=== PATIENT | female | born 1980 | race Hispanic/Latino ===

== ENCOUNTER 2016-08-23 17:32 | Observation (INO) | payer MEDICAID, OTHER ==
[2016-08-23 17:40] VITALS: BMI 25.6
[2016-08-23] MEDS ORDERED: Sodium Chloride 0.9% 1,000 ML IV STA (18:15)
[2016-08-23 19:19] LABS: ADD MANUAL DIFF? NO
[2016-08-23] MEDS ORDERED: Morphine 4 mg/ml ISec IVP STA ×2 (19:36→22:37)
[2016-08-23 19:44] LABS: ALB/GLOB RATIO 1.2 (1.1-1.8); ALKALINE PHOSPHATASE 91 U/L (38-133); ALT/SGPT 38 U/L (7-56); AMYLASE 38 U/L (35-125); AST/SGOT 35 U/L (15-39); BILIRUBIN,TOTAL 0.4 mg/dL (0.2-1.3); BLOOD UREA NITROGEN 12 mg/dL (7-21); CALCIUM 9.6 mg/dL (8.4-10.5); CARBON DIOXIDE 24 mmol/L (21-33); CHLORIDE 105 mmol/L (98-107); GFR AFRICAN-AMERICAN > 60; GLUCOSE,RANDOM 79 mg/dL (70-110); LIPASE 30 U/L (23-300); POTASSIUM 4.1 mmol/L (3.6-5.0); SODIUM 141 mmol/L (132-148); TOTAL PROTEIN 7.8 g/dL (5.8-8.3)
[2016-08-23 19:49] LABS: BASO # 0.03 K/mm3 (0.0-2.0); BASO % 0.3 % (0.0-3.0); EOS # 0.2 (0.0-0.7); EOS % 2.2 % (1.5-5.0); GRAN # 6.78 (1.4-6.5); GRAN % 64.9 % (50.0-68.0); HEMATOCRIT 37.5 % (36.0-48.0); LYMPH # 2.6 (1.2-3.4); LYMPH % 24.8 % (22.0-35.0); MEAN CELL VOLUME 95.7 fL (80.0-105.0); MEAN CORPUSCULAR HEMOGLOBIN 33.2 pg (25.0-35.0); MEAN CORPUSCULAR HGB CONC 34.7 g/dl (31.0-37.0); MEAN PLATELET VOLUME 11.7 fl (7.0-11.0); MONO # 0.8 (0.1-0.6); MONO % 7.8 % (1.0-6.0); PLATELET COUNT 274 10^3/uL (120.0-450.0); RED CELL DISTRIBUTION WIDTH 12.6 % (11.5-14.5); WHITE BLOOD COUNT 10.4 10^3/ul (4.5-11.0)
[2016-08-23] MEDS ORDERED: Iohexol 350 MG/100 ML VIAL ONE (19:58)
--- NOTE | 2016-08-23 21:10 | CT ---
EXAM: CT Abdomen and Pelvis With Intravenous Contrast CLINICAL HISTORY: 36 years old, female; Pain and signs and symptoms; Nausea and vomiting; Abdominal pain; Acute; Prior surgery; Surgery date: 6+ months; Surgery type: Cholecystectomy, hysterectomy and appendectomy TECHNIQUE: Axial computed tomography images of the abdomen and pelvis with intravenous contrast. This CT exam was performed using one or more of the following dose reduction techniques: automated exposure control, adjustment of the mA and/or kV according to patient size, and/or use of iterative reconstruction technique. Coronal and sagittal reformatted images were created and reviewed. CONTRAST: 100 mL of OMNI administered intravenously. EXAM DATE/TIME: 08/23/2016 7:35 PM COMPARISON: CT - ABD PELVIS W/O PO OR IV CONT 06/30/2016 9:49:16 PM FINDINGS: Lower thorax: Heart size is normal. There is a small hiatal hernia. There is atelectasis at the lung bases. There is scarring greatest in the in the lingula and middle lobe. ABDOMEN: Liver: There is mild fatty infiltration of the liver. Gallbladder and bile ducts: Gallbladder is surgically absent. Common bile duct is dilated. Pancreas: unremarkable Spleen: unremarkable Adrenals: unremarkable Kidneys and ureters: There is a tiny low attenuation left renal lesion too small to characterize.Kidneys and ureters are otherwise unremarkable. Stomach and bowel: Stomach is partially distended. Rotation is normal. Small bowel is mildly distended with fluid and air. There is no obstruction. Terminal ileum is mildly distended with fluid. Appendix is surgically absent. There is moderate stool in the right colon. Left colon is collapsed which limits evaluation. There is scattered diverticulosis Appendix: See stomach and bowel PELVIS: Bladder: unremarkable Reproductive: Uterus is absent. There are no adnexal masses. ABDOMEN and PELVIS: Intraperitoneal space: There is no significant fluid.There is no free air. Bones/joints: There are no acute osseous abnormalities Soft tissues: There is a small fat containing umbilical hernia. Vasculature: There are multiple phleboliths. Vascular structures are unremarkable. Lymph nodes: There is shotty adenopathy. IMPRESSION: No acute solid visceral abnormality; dilated common duct status post cholecystectomy; prior hysterectomy; mild ileus, no obstruction; diverticulosis without CT findings diverticulitis Additional findings as described above.
[2016-08-23 22:28] LABS: PH,URINE 7.5 (4.7-8.0); URINE BILIRUBIN NEGATIVE (NEGATIVE); URINE BLOOD NEGATIVE (NEGATIVE); URINE GLUCOSE (UA) NEGATIVE (NEGATIVE); URINE KETONE NEGATIVE (NEGATIVE); URINE LEUKOCYTE ESTERASE NEGATIVE Leu/uL (NEGATIVE); URINE PROTEIN NEGATIVE mg/dL (<30 mg/dL); URINE UROBILINOGEN 0.2 E.U./dL (<1 E.U./dL)
[2016-08-23 22:29] LABS: URINE APPEARANCE CLEAR (CLEAR); URINE COLOR YELLOW (YELLOW)
--- NOTE | 2016-08-23 23:00 | ED PDOC ---
Arrival/HPI - General Chief Complaint: Abdominal Pain Time Seen by Provider: 08/23/16 17:42 Historian: Patient - History of Present Illness Narrative History of Present Illness (Text): 08/23/16 22:56 36yr old female presents today to with abdominal pain, diarrhea x 3-4 days. pt states she has been having increasing abdominal pain, described as sharp constant located to the right and left lower abdomen. denies fever/chills. no cp or sob. no vomiting. + diarrhea. pt describes watery frequent diarrhea. pt states "i am peeing stool". no urinary symptoms. denies back pain. hx of c- diff. no other complaints. Symptom Onset: Gradual Symptom Course: Worsening Quality: Stabbing Severity Level: 8 Past Medical History - Provider Review Nursing Documentation Reviewed: Yes - Travel History Have you recently traveled outside [place] w/in the past 3 mons?: No - Past History Past History: No Previous - Infectious Disease Hx of Infectious Diseases: None - Tetanus Immunization Tetanus Immunization: Unknown - Cardiac Hx Cardiac Arrhythmia: No Hx Congestive Heart Failure: No Hx Hypertension: No Hx Mitral Valve Prolapse: No Hx Pacemaker: No Hx Peripheral Edema: No - Pulmonary Hx Asthma: Yes Hx Chronic Obstructive Pulmonary Disease (COPD): Yes - Neurological Hx Migraine: Yes Hx Seizures: Yes - HEENT Hx HEENT Disorder: No - Renal Hx Renal Disorder: No - Endocrine/Metabolic Hx Endocrine Disorders: No - Hematological/Oncological Hx Anemia: Yes (blood transfusion) - Integumentary Hx Dermatological Disorder: Yes Hx Eczema: Yes - Musculoskeletal/Rheumatological Hx Musculoskeletal Disorders: No Hx Falls: No - Gastrointestinal Hx Diverticulitis: Yes Hx Gall Bladder Disease: Yes (CHOLECYSTECTOMY) - Genitourinary/Gynecological Hx Sexually Transmitted Diseases: Yes - Psychiatric Hx Anxiety: Yes Hx Depression: Yes Hx Substance Use: No - Surgical History Hx Appendectomy: Yes Hx Cholecystectomy: Yes Hx Tonsillectomy: Yes - Anesthesia Hx Anesthesia: No Hx Anesthesia Reactions: No Hx Malignant Hyperthermia: No - Suicidal Assessment Feels Threatened In Home Enviroment: No Family/Social History - Physician Review Nursing Documentation Reviewed: Yes Family/Social History: Unknown Family HX Smoking Status: Current Some Days Smoker Hx Alcohol Use: No Hx Substance Use: No Substance used: MARIJUANA Hx Substance Use Treatment: No Allergies/Home Meds Allergies/Adverse Reactions: Allergies ciprofloxacin HCl [From Cipro] Allergy (Mild, Verified 08/23/16 17:46) RASH latex Allergy (Mild, Verified 08/23/16 17:46) RASH Penicillins Allergy (Mild, Verified 08/23/16 17:46) RASH aspirin Allergy (Verified 08/23/16 17:46) RASH aztreonam [From Azactam] Allergy (Verified 08/23/16 17:46) RASH hydromorphone HCl [From Dilaudid] Allergy (Verified 08/23/16 17:46) RASH Sulfa (Sulfonamide Antibiotics) Allergy (Verified 08/23/16 17:46) RASH codeine Adverse Reaction (Verified 08/23/16 17:46) NAUSEA Home Medications: Home Meds Medication Instructions Recorded Confirmed Sertraline HCl [Zoloft] 50 mg PO HS 07/02/15 08/23/16 Cholecalciferol (Vitamin D3) 50,000 units PO .WEEKLY 07/17/15 08/23/16 [Vitamin D3] Divalproex [Depakote ER] 500 mg PO BID 11/12/15 08/23/16 Lamotrigine [Lamictal Xr] 50 mg PO BID 11/12/15 08/23/16 Mirtazapine [Remeron] 30 mg PO HS 11/12/15 08/23/16 Pantoprazole Sodium [Protonix] 20 mg PO DAILY 11/12/15 08/23/16 Loratadine [Claritin] 10 mg PO DAILY 12/19/15 08/23/16 Albuterol Sulfate [Proventil Hfa] 1 puff IH PRN PRN 08/23/16 08/23/16 Butalbital [Butalbital] 50 mg PO BID 08/23/16 08/23/16 Conjugated Estrogens [Premarin] 0.625 mg PO DAILY 08/23/16 08/23/16 Fluticasone/Salmeterol 100/50 1 puff IH DAILY 08/23/16 08/23/16 [Advair Diskus 100/50] Montelukast [Singulair] 10 mg PO DAILY 08/23/16 08/23/16 Omeprazole Magnesium [Prilosec] 20 mg PO BID 08/23/16 08/23/16 clonazePAM [Klonopin] 1 mg PO BID 08/23/16 08/23/16 tiZANidine [Zanaflex] 4 mg PO HS 08/23/16 08/23/16 Review of Systems - Review of Systems Constitutional: absent: Fatigue, Fevers Respiratory: absent: SOB, Cough Cardiovascular: absent: Chest Pain, Palpitations Gastrointestinal: Abdominal Pain, Diarrhea. absent: Constipation, Nausea, Vomiting Genitourinary Female: absent: Dysuria, Frequency, Hematuria, Vaginal Bleeding, Vaginal Discharge Musculoskeletal: absent: Arthralgias, Back Pain, Neck Pain Skin: absent: Rash, Pruritis Neurological: absent: Headache, Dizziness Psychiatric: absent: Anxiety, Depression Physical Exam Vital Signs Reviewed: Yes Vital Signs Temp Pulse Resp BP Pulse Ox 08/23/16 22:23 97.8 F 75 18 102/50 L 100 08/23/16 20:00 83 16 126/80 98 08/23/16 17:39 98.2 F 98 H 18 127/79 98 Temperature: Afebrile Blood Pressure: Normal Pulse: Regular Respiratory Rate: Normal Appearance: Positive for: Well-Appearing, Non-Toxic, Comfortable Pain Distress: None Mental Status: Positive for: Alert and Oriented X 3 - Systems Exam Head: Present: Atraumatic Mouth: Present: Moist Mucous Membranes Neck: Present: Normal Range of Motion Respiratory/Chest: Present: Clear to Auscultation, Good Air Exchange. No: Respiratory Distress, Accessory Muscle Use Cardiovascular: Present: Regular Rate and Rhythm, Normal S1, S2. No: Murmurs Abdomen: Present: Tenderness (diffuse abdominal tenderness), Normal Bowel Sounds. No: Distention, Peritoneal Signs, Rebound, Guarding Back: Present: Normal Inspection. No: CVA Tenderness Neurological: Present: GCS=15 Skin: Present: Warm, Dry, Normal Color. No: Rashes Psychiatric: Present: Alert, Oriented x 3 Medical Decision Making ED Course and Treatment: 08/23/16 23:02 Patient is nontoxic well appearing with stable vital signs presenting with severe abdominal pain CBC wnl CMP wnl Amylase wnl Lipase wnl Urinalysis wnl CAT scan: FINDINGS: Lower thorax: Heart size is normal. There is a small hiatal hernia. There is atelectasis at the lung bases. There is scarring greatest in the in the lingula and middle lobe. ABDOMEN: Liver: There is mild fatty infiltration of the liver. Gallbladder and bile ducts: Gallbladder is surgically absent. Common bile duct is dilated. Pancreas: unremarkable Spleen: unremarkable Adrenals: unremarkable Kidneys and ureters: There is a tiny low attenuation left renal lesion too small to characterize.Kidneys and ureters are otherwise unremarkable. Stomach and bowel: Stomach is partially distended. Rotation is normal. Small bowel is mildly distended with fluid and air. There is no obstruction. Terminal ileum is mildly distended with fluid. Appendix is surgically absent. There is moderate stool in the right colon. Left colon is collapsed which limits evaluation. There is scattered diverticulosis Appendix: See stomach and bowel PELVIS: Bladder: unremarkable Reproductive: Uterus is absent. There are no adnexal masses. ABDOMEN and PELVIS: Intraperitoneal space: There is no significant fluid.There is no free air. Bones/joints: There are no acute osseous abnormalities Soft tissues: There is a small fat containing umbilical hernia. Vasculature: There are multiple phleboliths. Vascular structures are unremarkable. Lymph nodes: There is shotty adenopathy. IMPRESSION: No acute solid visceral abnormality; dilated common duct status post cholecystectomy; prior hysterectomy; mild ileus, no obstruction; diverticulosis without CT findings diverticulitis Additional findings as described above. Patient reassessment:pt with continued pain. morphine added Discussed all results with patient in depth pt with rx from PMD advising admission with surgery consult case discussed with dr. philippe bridges; accepts admission; will send stool cultures. pt with hx of c-diff 07/03/16 Impression: Abdominal pain, diarrhea admit observational status to med/surg for diarrhea and abdominal pain hx of c- diff - Lab Interpretations Lab Results: 08/23/16 19:10 08/23/16 19:10 Lab Results 08/23/16 22:10: Urine Color Yellow, Urine Appearance Clear, Urine pH 7.5, Ur Specific [place] 1.010, Urine Protein Negative, Urine Glucose (UA) Negative, Urine Ketones Negative, Urine Blood Negative, Urine Nitrate Negative, Urine Bilirubin Negative, Urine Urobilinogen 0.2, Ur Leukocyte Esterase Negative 08/23/16 19:10: WBC 10.4 D, RBC 3.92, Hgb 13.0, Hct 37.5, MCV 95.7, MCH 33.2, MCHC 34.7, RDW 12.6, Plt Count 274, MPV 11.7 H, Gran % 64.9, Lymph % (Auto) 24.8 , [place] % (Auto) 7.8 H, Eos % (Auto) 2.2, Baso % (Auto) 0.3, Gran # 6.78 H, Lymph # 2.6, [place] # 0.8 H, Eos # 0.2, Baso # 0.03 08/23/16 19:10: Sodium 141, Potassium 4.1, Chloride 105, Carbon Dioxide 24, Anion Gap 16, BUN 12, Creatinine 0.7, Est GFR ( Amer) > 60, Est GFR (Non- Af Amer) > 60, Random Glucose 79, Calcium 9.6, Total Bilirubin 0.4, AST 35, ALT 38, Alkaline Phosphatase 91, Total Protein 7.8, Albumin 4.2, Globulin 3.6, Albumin/Globulin Ratio 1.2, Amylase 38, Lipase 30 - RAD Interpretation Radiology Orders: 08/23/16 19:35 ABD & PELVIS IV CONTRAST ONLY [CT] Stat - Medication Orders Current Medication Orders: Albuterol (Ventolin Hfa 90 Mcg/Actuation (8 G)) 1 puff IH Q4H PRN PRN Reason: Wheezing Clonazepam (Klonopin) 1 mg PO BID KADY PRN Reason: Protocol Divalproex Sodium (Depakote Er(Once Daily)) 500 mg PO BID KADY PRN Reason: Protocol Enoxaparin Sodium (Lovenox) 40 mg SC DAILY KADY PRN Reason: Protocol Estrogens Conjugated (Premarin) 0.625 mg PO DAILY KADY Metronidazole (Flagyl) 500 mg in 100 mls @ 100 mls/hr IVPB Q8 KADY PRN Reason: Protocol Sodium Chloride (Sodium Chloride 0.9%) 1,000 mls @ 100 mls/hr IV .Q10H KADY Ketorolac Tromethamine (Toradol) 30 mg IVP Q6 PRN PRN Reason: Pain, moderate (4-7) Loratadine (Claritin) 10 mg PO DAILY KADY Lorazepam (Ativan) 1 mg IVP Q6H PRN; Protocol PRN Reason: Anxiety Mirtazapine (Remeron) 30 mg PO HS KADY Montelukast Sodium (Singulair) 10 mg PO DAILY KADY Non-Formulary Medication (Butalbital [Butalbital]) 50 mg PO BID KADY Non-Formulary Medication (Cholecalciferol (Vitamin D3) [Vitamin D3]) 50,000 units PO .WEEKLY KADY Non-Formulary Medication (Lamotrigine [Lamictal Xr]) 50 mg PO BID KADY Ondansetron HCl (Zofran Tab) 4 mg PO Q8H PRN PRN Reason: Nausea/Vomiting Ondansetron HCl (Zofran Inj) 4 mg IVP Q6 PRN PRN Reason: Nausea/Vomiting Pantoprazole Sodium (Protonix Ec Tab) 40 mg PO ACB KADY Fluticasone/Salmeterol (Advair Diskus 100/50) 1 puff IH DAILY KADY Sertraline HCl (Zoloft) 50 mg PO HS KADY Tizanidine HCl (Zanaflex) 4 mg PO HS KADY Discontinued Medications Diphenhydramine HCl (Benadryl) 25 mg PO ONCE ONE Stop: 08/23/16 19:37 Last Admin: 08/23/16 19:48 Dose: 25 mg Diphenhydramine HCl (Benadryl) 25 mg PO ONCE ONE Stop: 08/23/16 22:38 Last Admin: 08/23/16 22:49 Dose: 25 mg Sodium Chloride (Sodium Chloride 0.9%) 1,000 mls @ 999 mls/hr IV .Q1H1M STA Stop: 08/23/16 19:15 Last Admin: 08/23/16 19:15 Dose: 999 mls/hr Iohexol (Omnipaque 350 100 Ml) Confirm Administered Dose 350 mg .ROUTE .STK-MED ONE Stop: 08/23/16 19:59 Morphine Sulfate (Morphine) 4 mg IVP STAT STA Stop: 08/23/16 19:37 Last Admin: 08/23/16 19:48 Dose: 4 mg Re-Assess: CHIP Pain Assessment Document 08/23/16 20:48 HI (Rec: 08/23/16 22:50 AR [id number]) Pain Reassessment Is this a pain reassessment? Yes Sleep Is patient sleeping during reassessment? No Presence of Pain Presence of Pain Yes Pain Scale Used Pain Scale Used Numeric Location Pain Location Body Site Abdomen Morphine Sulfate (Morphine) 4 mg IVP STAT STA Stop: 08/23/16 22:38 Last Admin: 08/23/16 22:49 Dose: 4 mg Disposition/Present on Arrival - Present on Arrival Any Indicators Present on Arrival: No History of DVT/PE: No History of Uncontrolled Diabetes: No Urinary Catheter: No History of Decub. Ulcer: No History Surgical Site Infection Following: None - Disposition Have Diagnosis and Disposition been Completed?: Yes Diagnosis: Abdominal pain, Diarrhea Disposition: HOSPITALIZED Disposition Time: 23:05 Patient Plan: Observation Patient Problems: Current Active Problems Problem Status Onset Abdominal pain Acute Diarrhea Acute Condition: FAIR
[2016-08-23] MEDS ORDERED: LAMOTRIGINE 50 MG PO SCH (23:45)
--- NOTE | 2016-08-24 00:30 | CP.PCM.HP ---
<Zeynep Peguero - Last Filed: 08/24/16 01:47> History of Present Illness - History of Present Illness History of Present Illness: Internal medicine H & P for Hospitalist service- Zeynepdillon Peguero, PGY-1 Pt S & E at bedside. 36 F w/PMH sig for IBS, diverticulosis, seizure d/o, anemia, asthma, COPD, PTSD , bipolar d/o, hemorrhoids, GERD, recent c diff infection, chronic migraines, depression and anxiety admitted for intractable abdominal pain x 3 days. 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 Pain onset during the middle of the night, on inciting factors identified. Pt states she woke up and felt the urge to defecate, had some fecal incontinence prior to making it to the bathroom. Pt states that she is on a pain regimen of Morphine 4mg w/Benadryl 25mg at home, which helps alleviate the pain. Eating & drinking identified as aggravating factors. Has been on pain regimen for a few weeks as per PMD. Pt seen by PMD on day of admission - started Flagyl 500mg BID. 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 Denies sexual contact x 2-3 mos, fevers, rhinorrhea, sinus congestion , constipation. Pt with repeated requests for pain medications at bedside- requesting Benadryl IVP instead of PO - states that she is not allergic to morphine, does not get hives or have pruritis after administration of morphine, however is given Benadryl and Morphine together as per her PMD and would like to continue this regimen. Of note- father recently dx with terminal CA- given wks to live- pt very upset by this PMD: IBS, diverticulosis, seizure d/o, anemia, asthma, COPD, PTSD, bipolar d/o, hemorrhoids, GERD, recent c diff infection, depression and anxiety, chronic migraines PSH: appendectomy, cholecystectomy, total hysterectomy All: Cipro, PCN, Latext, ASA, Aztreonam, Dilaudid, Sulfa SH: Admits to tobacco use- smokes 1/2 ppd x 6 mos, decreased from 1 ppd x 20 yrs , denies ETOH use, quit MJ use 2 wks ago FH: Father recently dx with stage 4 CA- very upsetting to family- given a few wks to live PMD: [facility] A [facility] Outpatient neuro: Abby Present on Admission - Present on Admission Any Indicators Present on Admission: No History of DVT/PE: No History of Uncontrolled Diabetes: No Urinary Catheter: No Decubitus Ulcer Present: No Review of Systems - Review of Systems All systems: reviewed and no additional remarkable complaints except - Constitutional Constitutional: Chills, Headache, Lethargy, Malaise, Weakness. absent: Fever, Increased Appetite - EENT Eyes: Blurred Vision, Change in Vision. absent: Diplopia Nose/Mouth/Throat: Sore Throat. absent: Nasal Congestion, Neck Pain - Breasts Breasts: Nipple Discharge - Cardiovascular Cardiovascular: absent: Chest Pain, Leg Edema, Palpitations - Respiratory Respiratory: Cough - Gastrointestinal Gastrointestinal: Abdominal Pain, Bloating, Diarrhea, Heartburn, Hematemesis, Loose Stools, Nausea, Temesmus, Vomiting. absent: Hematochezia, Melena - Genitourinary Genitourinary: absent: Dysuria, Hematuria - Reproductive: Female Reproductive:Female: Vaginal Discharge - Musculoskeletal Musculoskeletal: Numbness (B/L upper thighs), Tingling (B/L upper thighs). absent: Back Pain - Integumentary Integumentary: Erythema (L groin), New Lesions (L groin) - Neurological Neurological: absent: Dizziness - Psychiatric Psychiatric: Abnormal Sleep Pattern, Anxiety, Change in Appetite, Depression ( Father recently dx with stage 4 CA- given few wks to live) - Endocrine Endocrine: Fatigue Past Patient History - Infectious Disease Hx of Infectious Diseases: None - Tetanus Immunizations Tetanus Immunization: Unknown - Past Medical History & Family History Past Medical History?: Yes - Past Social History Smoking Status: Current Some Days Smoker - CARDIAC Hx Cardia Arrhythmia: No Hx Congestive Heart Failure: No Hx Hypertension: No Hx Mitral Valve Prolapse: No Hx Pacemaker: No Hx Peripheral Edema: No - PULMONARY Hx Asthma: Yes Hx Chronic Obstructive Pulmonary Disease (COPD): Yes - NEUROLOGICAL Hx Migraine: Yes Hx Seizures: Yes - HEENT Hx HEENT Problems: No - RENAL Hx Chronic Kidney Disease: No - ENDOCRINE/METABOLIC Hx Endocrine Disorders: No - HEMATOLOGICAL/ONCOLOGICAL Hx Anemia: Yes (blood transfusion) - INTEGUMENTARY Hx Dermatological Problems: Yes Hx Eczema: Yes - MUSCULOSKELETAL/RHEUMATOLOGICAL Hx Musculoskeletal Disorders: No Hx Falls: No - GASTROINTESTINAL Hx Diverticulitis: Yes Hx Gall Bladder Disease: Yes (CHOLECYSTECTOMY) - GENITOURINARY/GYNECOLOGICAL Hx Sexually Transmitted Disorders: Yes - PSYCHIATRIC Hx Anxiety: Yes Hx Depression: Yes Hx Substance Use: No - SURGICAL HISTORY Hx Appendectomy: Yes Hx Cholecystectomy: Yes Hx Tonsillectomy: Yes - ANESTHESIA Hx Anesthesia: No Hx Anesthesia Reactions: No Hx Malignant Hyperthermia: No Meds Home Medications: Home Medication List Medication Instructions Recorded Confirmed Type Divalproex [Depakote ER(ONCE [address] 08/26/16 Rx DAILY)] Doxycycline Hyclate [Doryx] 100 mg PO Q12 #6 cap 08/26/16 Rx Meloxicam [Mobic] 7.5 mg PO DIN tab 08/26/16 Rx Ondansetron [Zofran Tab] 4 mg PO Q8H PRN #12 tab 08/26/16 Rx Pantoprazole Sodium [Protonix] 20 mg PO DAILY #30 08/26/16 Rx lamoTRIgine [Lamictal] 100 mg PO BID tab 08/26/16 Rx traMADol [Ultram] 50 mg PO TID PRN #9 tab 08/26/16 Rx Allergies/Adverse Reactions: Allergies Allergy/AdvReac Type Severity Reaction Status Date / Time ciprofloxacin HCl Allergy Mild RASH Verified 08/23/16 17:46 [From Cipro] latex Allergy Mild RASH Verified 08/23/16 17:46 Penicillins Allergy Mild RASH Verified 08/23/16 17:46 aspirin Allergy RASH Verified 08/23/16 17:46 aztreonam [From Azactam] Allergy RASH Verified 08/23/16 17:46 hydromorphone HCl Allergy RASH Verified 08/23/16 17:46 [From Dilaudid] Sulfa (Sulfonamide Allergy RASH Verified 08/23/16 17:46 Antibiotics) codeine AdvReac NAUSEA Verified 08/23/16 17:46 Physical Exam - Constitutional Appears: Non-toxic, No Acute Distress - Head Exam Head Exam: ATRAUMATIC, NORMAL INSPECTION, NORMOCEPHALIC - Eye Exam Eye Exam: EOMI, Normal appearance, PERRL Pupil Exam: NORMAL ACCOMODATION, PERRL - ENT Exam ENT Exam: Mucous Membranes Moist, Normal Exam - Neck Exam Neck exam: Positive for: Full Rom, Normal Inspection - Respiratory Exam Respiratory Exam: Decreased Breath Sounds, Clear to Auscultation Bilateral, NORMAL BREATHING PATTERN. absent: Accessory Muscle Use, Chest Wall Tenderness, Rales, Rhonchi, Wheezes, Respiratory Distress - Cardiovascular Exam Cardiovascular Exam: REGULAR RHYTHM, +S1, +S2 - GI/Abdominal Exam GI & Abdominal Exam: Firm, Guarding, Hyperactive Bowel Sounds, Normal Bowel Sounds, Soft, Tenderness. absent: Distended, Mass, Rebound, Rigid - Extremities Exam Extremities exam: Positive for: full ROM, tenderness (L inner thigh with erythema, indurated area approximately 1 x 1.5 cm) - Back Exam Back exam: FULL ROM, NORMAL INSPECTION (small 0.5cm palpable mass with pinpoint dark head- slightly mobile under the skin, non tender), tenderness (Left lower back) - Neurological Exam Neurological exam: Alert, CN II-XII Intact, Oriented x3 - Psychiatric Exam Psychiatric exam: Anxious Additional comments: speech is rapid/pressured - Skin Skin Exam: Dry, Erythema (L groin - see extremity for details), Warm Results - Vital Signs Recent Vital Signs: Last Vital Signs Temp 97.8 F 08/23/16 22:23 Pulse 75 08/23/16 22:23 Resp 18 08/23/16 22:23 BP 102/50 L 08/23/16 22:23 Pulse Ox 100 08/23/16 22:23 - Labs Result Diagrams: 08/23/16 19:10 08/23/16 19:10 Labs: Laboratory Results - last 24 hr 08/23/16 08/23/16 08/23/16 19:10 19:10 22:10 WBC 10.4 D RBC 3.92 Hgb 13.0 Hct 37.5 MCV 95.7 MCH 33.2 MCHC 34.7 RDW 12.6 Plt Count 274 MPV 11.7 H Gran % 64.9 Lymph % (Auto) 24.8 Scurry % (Auto) 7.8 H Eos % (Auto) 2.2 Baso % (Auto) 0.3 Gran # 6.78 H Lymph # 2.6 Scurry # 0.8 H Eos # 0.2 Baso # 0.03 Sodium 141 Potassium 4.1 Chloride 105 Carbon Dioxide 24 Anion Gap 16 BUN 12 Creatinine 0.7 Est GFR ( Amer) > 60 Est GFR (Non-Af Amer) > 60 Random Glucose 79 Calcium 9.6 Total Bilirubin 0.4 AST 35 ALT 38 Alkaline Phosphatase 91 Total Protein 7.8 Albumin 4.2 Globulin 3.6 Albumin/Globulin Ratio 1.2 Amylase 38 Lipase 30 Urine Color Yellow Urine Appearance Clear Urine pH 7.5 Ur Specific Davidson 1.010 Urine Protein Negative Urine Glucose (UA) Negative Urine Ketones Negative Urine Blood Negative Urine Nitrate Negative Urine Bilirubin Negative Urine Urobilinogen 0.2 Ur Leukocyte Esterase Negative Assessment & Plan - Assessment and Plan (Free Text) Assessment: 36 F w/PMH sig for IBS, diverticulosis, seizure d/o, anemia, asthma, COPD, PTSD , bipolar d/o, hemorrhoids, GERD, recent c diff infection, chronic migraines, depression and anxiety admitted for intractable abdominal pain, nausea, vomiting , diarrhea. Pt currently stable. Plan: Intractable Abdominal pain/nausea/vomiting/diarrhea NS@100 NPO Tramadol 25mg Q6H PRN severe pain Ativan 1mg Q4H PRN mod pain Zofran 4mg IVP Q6H PRN Nausea Flagyl 500mg Q8H FU Stool leuks FU Stool cx FU FOB ID consulted- Riley Hx IBS Cont home med: Zoloft Hx GERD Protonix Seizure d/o Cont home med: Klonopin, Depakote, Lamictal, Zanaflex, Mobic s/p total hysterectomy Cont home med: Conjugated estrogen cream Bipolar d/o/depression Cont home med: Remeron, Zoloft Psych consult- Dr. Salcido Hx asthma/COPD Cont home med: Claritin, Singulair, Albuterol Started on Brovana, Pulmicort Monitor L groin abscess No leukocytosis Afebrile FU Blood cultures U/A neg No Urine cx at this time FU HIV Vanco 1gm x 1 Surgery consult-Efraín HARVEY consult- Riley Abnormal vaginal discharge Will consider diflucan if indicated Monitor Hx Migraines Cont home med: Butalbital Hx vitamin deficiency Cont home med: Ergocalciferol GI/DVT ppx Protonix SCDs Lovenox Dispo Admit to med-surg VS Q6H Activity as constanza WHITAKER attending - Date & Time Date: 08/23/16 Time: 23:30 Decision To Admit - Pt Status Changed To: Hospital Disposition Of: Observation - . Bed Request Type: Med/Surg Admitting Physician: Ean Parra <Ean Parra - Last Filed: 08/27/16 18:58> Results - Vital Signs Recent Vital Signs: Last Vital Signs Temp 99 F 08/26/16 16:00 Pulse 103 H 08/26/16 16:00 Resp 20 08/26/16 16:00 BP 140/93 H 08/26/16 16:00 Pulse Ox 93 L 08/26/16 16:00 - Labs Result Diagrams: 08/26/16 08:40 08/26/16 08:40
--- NOTE | 2016-08-24 00:52 | CP.PCM.CON ---
History of Present Illness - History of Present Illness History of Present Illness: General Surgery: Dr. Kenny 36F with PMHx significant for numerous admissions for chronic abdominal pain, IBS-M, endometriosis, anxiety/depression ,drug seeking behavior, and hx of C.diff who presented to ED with complaints abdominal pain. General surgery is being consulted for small left inner thigh abscess. Patient reports she was sent by her PMD to ED because of her abdominal pain. She reports having multiple bouts of diarrhea, green/brown in color for the past 3-4 days. Patient also states she's had multiple bouts of vomiting. Upon examination, patient also complained of right breast pain. A breast exam was done and patient had small tender palpable nodule between 1-3 o'clock position. Pt reports last mammogram was done 2 years ago. She states milk was expressed by her PMD from Right breast at the office, however at time of examination here no fluid was expressed. Patient also has a small non-fluctuant indurated abscessin her left inner thigh. Currently patient denies fevers, chest pain, SOB, n/v. Reports chills, abdominal pain, and right breast pain. PMHx: as stated above PSurgHx: Appendectomy, Cholecystectomy, Total hysterectomy, 2 C-sections, removal of cyst from ovary, 3 D&Cs Social: Tobacco use 1/2 pack a day, Denies alcohol and drug use, currently not working, lives with and two children ages 7 and 9. Allergies: as listed in chart Review of Systems - Review of Systems Review of Systems: 12 pt ROS carried out, unremarkable; except as stated in HPI Past Patient History - Infectious Disease Hx of Infectious Diseases: None - Tetanus Immunizations Tetanus Immunization: Unknown - Past Medical History & Family History Past Medical History?: Yes - Past Social History Smoking Status: Current Some Days Smoker - CARDIAC Hx Cardia Arrhythmia: No Hx Congestive Heart Failure: No Hx Hypertension: No Hx Mitral Valve Prolapse: No Hx Pacemaker: No Hx Peripheral Edema: No - PULMONARY Hx Asthma: Yes Hx Chronic Obstructive Pulmonary Disease (COPD): Yes - NEUROLOGICAL Hx Migraine: Yes Hx Seizures: Yes - HEENT Hx HEENT Problems: No - RENAL Hx Chronic Kidney Disease: No - ENDOCRINE/METABOLIC Hx Endocrine Disorders: No - HEMATOLOGICAL/ONCOLOGICAL Hx Anemia: Yes (blood transfusion) - INTEGUMENTARY Hx Dermatological Problems: Yes Hx Eczema: Yes - MUSCULOSKELETAL/RHEUMATOLOGICAL Hx Musculoskeletal Disorders: No Hx Falls: No - GASTROINTESTINAL Hx Diverticulitis: Yes Hx Gall Bladder Disease: Yes (CHOLECYSTECTOMY) - GENITOURINARY/GYNECOLOGICAL Hx Sexually Transmitted Disorders: Yes - PSYCHIATRIC Hx Anxiety: Yes Hx Depression: Yes Hx Substance Use: No - SURGICAL HISTORY Hx Appendectomy: Yes Hx Cholecystectomy: Yes Hx Tonsillectomy: Yes - ANESTHESIA Hx Anesthesia: No Hx Anesthesia Reactions: No Hx Malignant Hyperthermia: No Meds Allergies/Adverse Reactions: Allergies Allergy/AdvReac Type Severity Reaction Status Date / Time ciprofloxacin HCl Allergy Mild RASH Verified 08/23/16 17:46 [From Cipro] latex Allergy Mild RASH Verified 08/23/16 17:46 Penicillins Allergy Mild RASH Verified 08/23/16 17:46 aspirin Allergy RASH Verified 08/23/16 17:46 aztreonam [From Azactam] Allergy RASH Verified 08/23/16 17:46 hydromorphone HCl Allergy RASH Verified 08/23/16 17:46 [From Dilaudid] Sulfa (Sulfonamide Allergy RASH Verified 08/23/16 17:46 Antibiotics) codeine AdvReac NAUSEA Verified 08/23/16 17:46 - Medications Medications: Current Medications Albuterol (Ventolin Hfa 90 Mcg/Actuation (8 G)) 1 puff IH Q4H PRN PRN Reason: Wheezing Clonazepam (Klonopin) 1 mg PO BID KADY PRN Reason: Protocol Divalproex Sodium (Depakote Er(Once Daily)) 500 mg PO BID [facility] PRN Reason: Protocol Enoxaparin Sodium (Lovenox) 40 mg SC DAILY KADY PRN Reason: Protocol Estrogens Conjugated (Premarin) 0.625 mg PO DAILY KADY Metronidazole (Flagyl) 500 mg in 100 mls @ 100 mls/hr IVPB Q8 KADY PRN Reason: Protocol Sodium Chloride (Sodium Chloride 0.9%) 1,000 mls @ 100 mls/hr IV .Q10H KADY Ketorolac Tromethamine (Toradol) 30 mg IVP Q6 PRN PRN Reason: Pain, moderate (4-7) Loratadine (Claritin) 10 mg PO DAILY KADY Lorazepam (Ativan) 1 mg IVP Q6H PRN; Protocol PRN Reason: Anxiety Mirtazapine (Remeron) 30 mg PO HS [facility] Montelukast Sodium (Singulair) 10 mg PO DAILY KADY Non-Formulary Medication (Butalbital [Butalbital]) 50 mg PO BID KADY Non-Formulary Medication (Cholecalciferol (Vitamin D3) [Vitamin D3]) 50,000 units PO .WEEKLY KADY Non-Formulary Medication (Lamotrigine [Lamictal Xr]) 50 mg PO BID KADY Ondansetron HCl (Zofran Tab) 4 mg PO Q8H PRN PRN Reason: Nausea/Vomiting Ondansetron HCl (Zofran Inj) 4 mg IVP Q6 PRN PRN Reason: Nausea/Vomiting Pantoprazole Sodium (Protonix Ec Tab) 40 mg PO DAILY KADY Fluticasone/Salmeterol (Advair Diskus 100/50) 1 puff IH DAILY KADY Sertraline HCl (Zoloft) 50 mg PO HS KADY Tizanidine HCl (Zanaflex) 4 mg PO HS KADY Physical Exam - Constitutional Appears: No Acute Distress - Head Exam Head Exam: NORMOCEPHALIC - Eye Exam Eye Exam: Normal appearance - ENT Exam ENT Exam: Mucous Membranes Moist - Respiratory Exam Respiratory Exam: NORMAL BREATHING PATTERN - Cardiovascular Exam Cardiovascular Exam: +S1, +S2 - GI/Abdominal Exam GI & Abdominal Exam: Soft. absent: Distended, Firm, Guarding - Neurological Exam Neurological exam: Alert, Oriented x3 - Skin Skin Exam: Erythema Additional comments: inner thigh, left - Expanded Skin Exam Expanded Type of lesion: Abscess Distribution of rash: Left Lower Extremity Description of Rash: Indurated Results - Vital Signs Recent Vital Signs: Last Vital Signs Temp 97.8 F 08/23/16 22:23 Pulse 75 08/23/16 22:23 Resp 18 08/23/16 22:23 BP 102/50 L 08/23/16 22:23 Pulse Ox 100 08/23/16 22:23 - Labs Result Diagrams: 08/23/16 19:10 08/23/16 19:10 - Imaging and Cardiology CT scan - abdomen Status: Image reviewed by me, Report reviewed by me Assessment & Plan - Assessment and Plan (Free Text) Assessment: 36F w/ small left indurated inner thigh abscess -Abscess currently indurated and not fluctuant -Apply warm compresses to affected site -Abx -Recommend breast imaging -Will track progress of abscess -Further recs per Dr. Kenny
[2016-08-24] MEDS ORDERED: Vancomycin 1gm in NS 250ml 1 GM/250 ML BAG IVPB STA (01:32)
[2016-08-24] MEDS: Sodium Chloride 0.9% 1,000 ML IV SCH ×2 (01:45→21:40)
[2016-08-24] MEDS: Divalproex 500 mg ER (ONCE DAILY formulation) PO SCH ×4 (01:53→21:40)
[2016-08-24] MEDS: Meloxicam 7.5 MG TAB PO SCH ×2 (01:54→18:22)
[2016-08-24] MEDS ORDERED: Albuterol 0.042% Inhal Sol (1.25 mg/3 mL) UD IH PRN (02:00)
[2016-08-24 04:38] LABS: ADD MANUAL DIFF? NO
[2016-08-24 04:46] LABS: BASO # 0.03 K/mm3 (0.0-2.0); BASO % 0.4 % (0.0-3.0); EOS # 0.2 (0.0-0.7); EOS % 3.2 % (1.5-5.0); GRAN # 3.63 (1.4-6.5); GRAN % 50.2 % (50.0-68.0); LYMPH # 2.7 (1.2-3.4); LYMPH % 36.7 % (22.0-35.0); MEAN CELL VOLUME 96.7 fL (80.0-105.0); MEAN CORPUSCULAR HEMOGLOBIN 33.1 pg (25.0-35.0); MEAN CORPUSCULAR HGB CONC 34.2 g/dl (31.0-37.0); MEAN PLATELET VOLUME 11.6 fl (7.0-11.0); MONO # 0.7 (0.1-0.6); MONO % 9.5 % (1.0-6.0); PLATELET COUNT 249 10^3/uL (120.0-450.0); RED CELL DISTRIBUTION WIDTH 12.5 % (11.5-14.5); WHITE BLOOD COUNT 7.2 10^3/ul (4.5-11.0)
[2016-08-24] MEDS: metroNIDAZOLE IV 500 mg/100 ml 500 MG/100 ML BAG IVPB SCH ×2 (04:49→05:54)
[2016-08-24 05:18] LABS: ALB/GLOB RATIO 1.2 (1.1-1.8); ALKALINE PHOSPHATASE 85 U/L (38-133); ALT/SGPT 36 U/L (7-56); AST/SGOT 20 U/L (15-39); BILIRUBIN,TOTAL 0.4 mg/dL (0.2-1.3); BLOOD UREA NITROGEN 11 mg/dL (7-21); CALCIUM 9.1 mg/dL (8.4-10.5); CARBON DIOXIDE 26 mmol/L (21-33); CHLORIDE 105 mmol/L (95-110); GFR AFRICAN-AMERICAN > 60; GLUCOSE,RANDOM 82 mg/dL (70-110); POTASSIUM 3.8 mmol/L (3.6-5.0); SODIUM 140 mmol/L (132-148); TOTAL PROTEIN 6.9 g/dL (5.8-8.3)
[2016-08-24] MEDS: BUTALBITAL PO SCH ×2 (09:45→18:21)
[2016-08-24] MEDS: Pantoprazole 40 mg EC Tab PO SCH (09:49)
[2016-08-24] MEDS: Vancomycin 25 MG/ML PO SCH ×5 (09:50→21:41)
[2016-08-24] MEDS: Enoxaparin 40 mg Syringe SC SCH (09:50)
[2016-08-24] MEDS ORDERED: Fluticasone-Salmeterol 100-50mcg Diskus IH SCH (10:00)
[2016-08-24] MEDS ORDERED: Budesonide 0.25 mg/2 ml Inhal Susp UD IH SCH (10:00)
[2016-08-24] MEDS ORDERED: Arformoterol 15 mcg/2 ml Inh Sol IH SCH (10:00)
[2016-08-24] MEDS ORDERED: Ergocalciferol 50,000 Intl Units Cap PO SCH (10:00)
[2016-08-24] MEDS ORDERED: Clindamycin 300 MG in Sodium Chloride 0.9% 50 ML IVPB SCH (15:15)
--- NOTE | 2016-08-24 16:44 | CON ---
DATE: 08/24/2016 HISTORY OF PRESENT ILLNESS: The patient is a 36-year-old female with history of multiple m edical issues, irritable bowel syndrome, diverticulosis, seizure disorder, anemia, asthma, COPD. The patient also has history of mental illness, PTSD, history of mood disorder, most likely bipolar diso rder. The patient was admitted on the medical floor for evaluation of abdominal pain. Psych consult was called for evaluation of mood symptoms. The patient was seen and examined. The patient does no t want a psychiatrist to see her. The patient denied being depressed, denied thoughts of harming her self or others, denied hearing voices, denied seeing things. 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 The patient was filling h er medication in [facility]. [facility] was called. Medications were confirmed. The patient wa s not on Zoloft. All patient was compliant with was Klonopin 1 mg 3 times a day prescribed by Dr. Khalida maradiaga in [place]. The patient filled that medication on 07/31, one month supply was given to the boris blanco. The patient was not on Lamictal, was not on Zoloft. The patient was not on Depakote. This w riter will suggest to discontinue those medications. In case of insomnia, patient could continue Rem doris at the nighttime. The patient was not interested to be evaluated by this lyric writer and refused to talk to her. VITAL SIGNS: Stable. Temperature 97.7, pulse 71, blood pressure 106/69, respirations 20, oxygen sat uration 97. MEDICATIONS: Reviewed. See above. MENTAL STATUS EXAMINATION: The patient presented to be irritable, angry, intense eye contact. Speec h was underproductive. She has no answers. Thought process was coherent and goal directed. Mood de scribed as depressed, "I am not feeling better." Affect was irritable, mood congruent. Thought cont ent: The patient denied visual, auditory, tactile hallucinations. Denied paranoid ideations. The p atient denied thoughts of harming herself or others, denied intent or plan. Insight and judgment are improving. Impulses are well controlled. IMPRESSION: Mood disorder, rule out mood disorder due to general medical condition, rule out bipolar disorder. As per history, history of attention deficit disorder, history of pain medication as well as benzodiazepine misuse. PLAN: Continue current medications. Medications were confirmed by [facility]. The patient was on ly on Klonopin 1 mg 3 times a day. The patient was not on Zoloft, we discontinued that. The patient could be continued on Remeron 15 mg at the nighttime for insomnia. The patient was not on Lamictal and patient was not on Depakote, please discontinue that, unless the patient has history of seizure d isorder and patient is to continue those medications. Meanwhile, this lyric writer will sign off from this case. Should you have any questions, give me a call back. The patient does not want to be followed up by psychiatrist. Loly Florence MD cc: [id number] TT: 08/24/2016 16:43:41 Confirmation # [id number] Dictation # [id number] carol
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
[2016-08-24] MEDS: Clindamycin 300 MG in Sodium Chloride 0.9% 50 ML IVPB SCH (23:43)
[2016-08-25] MEDS: Clindamycin 300 MG in Sodium Chloride 0.9% 50 ML IVPB SCH (05:44)
[2016-08-25] MEDS: Sodium Chloride 0.9% 1,000 ML IV SCH ×2 (05:45→14:53)
--- NOTE | 2016-08-25 07:40 | CP.PCM.PN ---
Subjective - Date & Time of Evaluation Date of Evaluation: 08/25/16 Time of Evaluation: 07:42 - Subjective Subjective: Dr. Alex Kerr Progress PGY1 Surgery Note for Dr. Kenny Patient seen and examined at bedside this AM; denies any fevers/chills, APPLE, CP, SOB, dysuria/freq/urg, or lower extremity pain/swelling. Says she had one "loose " stool, not diarrhea, no blood. No vomiting/nausea. Objective - Vital Signs/Intake and Output Vital Signs (last 24 hours): Temp Pulse Resp BP Pulse Ox 97.7 F 66 18 95/62 L 97 08/24/16 16:00 08/24/16 16:00 08/24/16 16:00 08/24/16 16:00 08/24/16 16:00 Intake and Output: 08/25/16 08/25/16 06:59 18:59 Intake Total 120 Balance 120 - Medications Medications: Current Medications Albuterol Sulfate (Albuterol 0.042% Inhal Valeria (1.25mg/3ml) Ud) 1.25 mg IH [id number] PRN PRN Reason: Wheezing Arformoterol Tartrate (Brovana) 15 mcg IH DAILY [facility] Last Admin: 08/24/16 09:13 Dose: Not Given Budesonide (Pulmicort Respules) 0.25 mg IH DAILY [facility] Last Admin: 08/24/16 09:13 Dose: Not Given Clonazepam (Klonopin) 1 mg PO BID [facility] PRN Reason: Protocol Last Admin: 08/24/16 18:24 Dose: 1 mg Divalproex Sodium (Depakote Er(Once Daily)) 500 mg PO Q12 [facility] PRN Reason: Protocol Last Admin: 08/24/16 21:40 Dose: 500 mg Enoxaparin Sodium (Lovenox) 40 mg SC DAILY [facility] PRN Reason: Protocol Last Admin: 08/24/16 09:50 Dose: 40 mg Ergocalciferol (Drisdol 50,000 Intl Units Cap) 1 cap PO Q7D [facility] Last Admin: 08/24/16 09:48 Dose: 1 cap Estrogens Conjugated (Premarin) 0.625 mg PO DAILY [facility] Last Admin: 08/24/16 18:23 Dose: 0.625 mg Gabapentin (Neurontin) 100 mg PO BID [facility] PRN Reason: Protocol Last Admin: 08/24/16 18:22 Dose: 100 mg Sodium Chloride (Sodium Chloride 0.9%) 1,000 mls @ 100 mls/hr IV .Q10H [facility] Last Admin: 08/25/16 05:45 Dose: 100 mls/hr Clindamycin Phosphate 300 mg/ (Sodium Chloride) 52 mls @ 104 mls/hr IVPB Q6 [facility] PRN Reason: Protocol Last Admin: 08/25/16 05:44 Dose: 104 mls/hr Lamotrigine (Lamictal) 100 mg PO BID [facility] PRN Reason: Protocol Last Admin: 08/24/16 18:21 Dose: 100 mg Loratadine (Claritin) 10 mg PO DAILY [facility] Last Admin: 08/24/16 09:49 Dose: 10 mg Lorazepam (Ativan) 1 mg IVP Q6H PRN; Protocol PRN Reason: Pain, moderate (4-7) Last Admin: 08/24/16 02:04 Dose: 1 mg Meloxicam (Mobic) 7.5 mg PO DIN [facility] Last Admin: 08/24/16 18:22 Dose: 7.5 mg Mirtazapine (Remeron) 30 mg PO HS [facility] Last Admin: 08/24/16 21:40 Dose: 30 mg Montelukast Sodium (Singulair) 10 mg PO DAILY [facility] Last Admin: 08/24/16 09:49 Dose: 10 mg Non-Formulary Medication (Butalbital [Butalbital]) 50 mg PO BID [facility] Last Admin: 08/24/16 18:21 Dose: Not Given Ondansetron HCl (Zofran Inj) 4 mg IVP Q6 PRN PRN Reason: Nausea/Vomiting Pantoprazole Sodium (Protonix Ec Tab) 40 mg PO ACB [facility] Last Admin: 08/24/16 09:49 Dose: 40 mg Sertraline HCl (Zoloft) 50 mg PO HS [facility] Last Admin: 08/24/16 21:42 Dose: 50 mg Tizanidine HCl (Zanaflex) 4 mg PO HS [facility] Last Admin: 08/24/16 21:42 Dose: 4 mg Tramadol HCl (Ultram) 50 mg PO TID PRN PRN Reason: Pain, severe (8-10) Last Admin: 08/25/16 01:38 Dose: 50 mg Vancomycin HCl (Vancocin 25 Mg/Ml (Oral Use)) 125 mg PO QID [facility] PRN Reason: Protocol Stop: 09/03/16 10:01 Last Admin: 08/24/16 21:41 Dose: Not Given - Labs Labs: 08/24/16 04:20 08/24/16 04:20 - Head Exam Additional comments: Head Exam: NORMOCEPHALIC - Eye Exam Eye Exam: Normal appearance - ENT Exam ENT Exam: Mucous Membranes Moist - Respiratory Exam Respiratory Exam: NORMAL BREATHING PATTERN - Cardiovascular Exam Cardiovascular Exam: +S1, +S2 - GI/Abdominal Exam GI & Abdominal Exam: Soft. absent: Distended, Firm, Guarding. Benign. - Neurological Exam Neurological exam: Alert, Oriented x3 - Skin Skin Exam: Erythema Additional comments: inner thigh, left, folliculitis Breast: no signs of mass palpated, no drainage Assessment and Plan - Assessment and Plan (Free Text) Assessment: 36F w/ small left indurated inner thigh folliculitis -Folliculitis not indurated -Apply warm compresses to affected site; patient advised not to shave area; not complaining of pain at the site -Abx as per ID -Recommend breast imaging;however patient recently had mammogram and ultrasound done as per primary and the patient is no longer complaining of breast pain or drainage like she was on imaging -patient has an extensive admission history and drug seeking behavior; CT scan showed no signs of diverticulitis This patient does not need any surgical intervention at this time. Thank you for this consult. Please feel free to consult PRN. Dr. Alex Kerr PGY1
[2016-08-25] MEDS: Pantoprazole 40 mg EC Tab PO SCH (08:32)
[2016-08-25] MEDS: Divalproex 500 mg ER (ONCE DAILY formulation) PO SCH ×2 (09:03→22:28)
[2016-08-25] MEDS: BUTALBITAL PO SCH ×2 (09:09→17:10)
[2016-08-25 09:42] LABS: ADD MANUAL DIFF? NO
[2016-08-25 09:47] LABS: BASO # 0.03 K/mm3 (0.0-2.0); BASO % 0.6 % (0.0-3.0); EOS # 0.2 (0.0-0.7); EOS % 4.3 % (1.5-5.0); GRAN # 2.69 (1.4-6.5); GRAN % 52.4 % (50.0-68.0); HEMATOCRIT 38.3 % (36.0-48.0); LYMPH # 1.7 (1.2-3.4); LYMPH % 33.7 % (22.0-35.0); MEAN CELL VOLUME 95.5 fL (80.0-105.0); MEAN CORPUSCULAR HEMOGLOBIN 32.9 pg (25.0-35.0); MEAN CORPUSCULAR HGB CONC 34.5 g/dl (31.0-37.0); MEAN PLATELET VOLUME 11.7 fl (7.0-11.0); MONO # 0.5 (0.1-0.6); PLATELET COUNT 235 10^3/uL (120.0-450.0); WHITE BLOOD COUNT 5.1 10^3/ul (4.5-11.0)
[2016-08-25 09:57] LABS: ALB/GLOB RATIO 1.1 (1.1-1.8); ALKALINE PHOSPHATASE 90 U/L (38-133); ALT/SGPT 34 U/L (7-56); AST/SGOT 23 U/L (15-39); BILIRUBIN,TOTAL 0.6 mg/dL (0.2-1.3); BLOOD UREA NITROGEN 11 mg/dL (7-21); CARBON DIOXIDE 25 mmol/L (21-33); CHLORIDE 105 mmol/L (98-107); GFR AFRICAN-AMERICAN > 60; GLUCOSE,RANDOM 90 mg/dL (70-110); POTASSIUM 3.9 mmol/L (3.6-5.0); SODIUM 140 mmol/L (132-148); TOTAL PROTEIN 7.4 g/dL (5.8-8.3)
[2016-08-25] MEDS: Vancomycin 25 MG/ML PO SCH ×3 (10:04→17:09)
[2016-08-25] MEDS: Enoxaparin 40 mg Syringe SC SCH (11:03)
[2016-08-25] MEDS: Meloxicam 7.5 MG TAB PO SCH (17:08)
--- NOTE | 2016-08-25 17:11 | CP.PCM.PN ---
<Jame Miranda - Last Filed: 08/25/16 17:01> Subjective - Date & Time of Evaluation Date of Evaluation: 08/25/16 Time of Evaluation: 07:45 - Subjective Subjective: Dr. Miranda PGY 1 Hospitalist Note Patient seen and evaluated at bedside with nurse present. She reports she continues to have abdominal pain in her left lower quadrant and states, "nobody is doing anything about my pain." She was reminded that she is getting Ultram and Gabapentin to which she retorts, "tramadol doesn't do it for me, I want morphine. Its the only thing that does it for me." Prior to entering room, patient was observed sitting upright in bed, in no distress and going through her belongings. She has not had any diarrhea or vomiting since admission. Per nursing, the patient demands morphine at night and becomes agitated and yells at the nurses. Also the patient refuses to get an ultrasound of her abscess. She requests to be seen by another physician but refuses to be seen by other hospitalist currently on service. On re-evaluation, she was observed laying in bed in no distress and watching television. Objective - Vital Signs/Intake and Output Vital Signs (last 24 hours): Temp Pulse Resp BP Pulse Ox 97.8 F 78 18 97/56 L 96 08/25/16 16:00 08/25/16 16:00 08/25/16 16:00 08/25/16 16:00 08/25/16 16:00 Intake and Output: 08/25/16 08/25/16 06:59 18:59 Intake Total 120 500 Balance 120 500 - Medications Medications: Current Medications Albuterol Sulfate (Albuterol 0.042% Inhal Valeria (1.25mg/3ml) Ud) 1.25 mg IH [id number] PRN PRN Reason: Wheezing Arformoterol Tartrate (Brovana) 15 mcg IH DAILY [facility] Last Admin: 08/24/16 09:13 Dose: Not Given Budesonide (Pulmicort Respules) 0.25 mg IH DAILY [facility] Last Admin: 08/24/16 09:13 Dose: Not Given Clonazepam (Klonopin) 1 mg PO BID [facility] PRN Reason: Protocol Last Admin: 08/25/16 09:07 Dose: 1 mg Divalproex Sodium (Depakote Er(Once Daily)) 500 mg PO Q12 [facility] PRN Reason: Protocol Last Admin: 08/25/16 09:03 Dose: 500 mg Doxycycline Hyclate (Doryx) 100 mg PO Q12 [facility] PRN Reason: Protocol Last Admin: 08/25/16 11:06 Dose: 100 mg Enoxaparin Sodium (Lovenox) 40 mg SC DAILY [facility] PRN Reason: Protocol Last Admin: 08/25/16 11:03 Dose: Not Given Ergocalciferol (Drisdol 50,000 Intl Units Cap) 1 cap PO Q7D [facility] Last Admin: 08/24/16 09:48 Dose: 1 cap Estrogens Conjugated (Premarin) 0.625 mg PO DAILY [facility] Last Admin: 08/25/16 09:07 Dose: 0.625 mg Gabapentin (Neurontin) 100 mg PO BID [facility] PRN Reason: Protocol Last Admin: 08/25/16 09:03 Dose: 100 mg Sodium Chloride (Sodium Chloride 0.9%) 1,000 mls @ 100 mls/hr IV .Q10H [facility] Last Admin: 08/25/16 14:53 Dose: 100 mls/hr Lamotrigine (Lamictal) 100 mg PO BID [facility] PRN Reason: Protocol Last Admin: 08/25/16 09:02 Dose: 100 mg Loratadine (Claritin) 10 mg PO DAILY [facility] Last Admin: 08/25/16 09:03 Dose: 10 mg Lorazepam (Ativan) 1 mg IVP Q6H PRN; Protocol PRN Reason: Pain, moderate (4-7) Last Admin: 08/24/16 02:04 Dose: 1 mg Meloxicam (Mobic) 7.5 mg PO DIN [facility] Last Admin: 08/24/16 18:22 Dose: 7.5 mg Mirtazapine (Remeron) 30 mg PO HS [facility] Last Admin: 08/24/16 21:40 Dose: 30 mg Montelukast Sodium (Singulair) 10 mg PO DAILY [facility] Last Admin: 08/25/16 09:03 Dose: 10 mg Non-Formulary Medication (Butalbital [Butalbital]) 50 mg PO BID [facility] Last Admin: 08/24/16 18:21 Dose: Not Given Ondansetron HCl (Zofran Inj) 4 mg IVP Q6 PRN PRN Reason: Nausea/Vomiting Pantoprazole Sodium (Protonix Ec Tab) 40 mg PO ACB [facility] Last Admin: 08/25/16 08:32 Dose: 40 mg Sertraline HCl (Zoloft) 50 mg PO HS [facility] Last Admin: 08/24/16 21:42 Dose: 50 mg Tizanidine HCl (Zanaflex) 4 mg PO HS [facility] Last Admin: 08/24/16 21:42 Dose: 4 mg Tramadol HCl (Ultram) 50 mg PO TID PRN PRN Reason: Pain, severe (8-10) Last Admin: 08/25/16 11:06 Dose: 50 mg Vancomycin HCl (Vancocin 25 Mg/Ml (Oral Use)) 125 mg PO QID [facility] PRN Reason: Protocol Stop: 09/03/16 10:01 Last Admin: 08/25/16 14:50 Dose: Not Given - Labs Labs: 08/25/16 09:20 08/25/16 09:20 - Constitutional Appears: Agitated - Head Exam Head Exam: ATRAUMATIC, NORMOCEPHALIC - Eye Exam Eye Exam: EOMI, Normal appearance, PERRL Pupil Exam: NORMAL ACCOMODATION, PERRL - ENT Exam ENT Exam: Mucous Membranes Moist. absent: Normal Oropharynx (tongue and lip piercings) - Neck Exam Neck Exam: Normal Inspection. absent: Tenderness - Respiratory Exam Respiratory Exam: Clear to Ausculation Bilateral, NORMAL BREATHING PATTERN. absent: Rales, Rhonchi, Wheezes - Cardiovascular Exam Cardiovascular Exam: REGULAR RHYTHM, +S1, +S2. absent: Gallop, Rubs, Murmur - GI/Abdominal Exam GI & Abdominal Exam: Soft, Tenderness (left lower quadrant and suprapubic region ), Normal Bowel Sounds - Extremities Exam Extremities Exam: Normal Inspection. absent: Pedal Edema, Tenderness - Back Exam Back Exam: NORMAL INSPECTION. absent: rash noted, tenderness - Neurological Exam Neurological Exam: Alert, Awake, CN II-XII Intact, Oriented x3 - Psychiatric Exam Psychiatric exam: Agitated (very angry person, nasty towards staff, resident, and attending) - Skin Skin Exam: Dry, Intact, Normal Color, Warm Assessment and Plan - Assessment and Plan (Free Text) Assessment: 36 F w/PMH sig for IBS, diverticulosis, seizure d/o, anemia, asthma, COPD, PTSD , bipolar d/o, hemorrhoids, GERD, recent c diff infection, chronic migraines, depression and anxiety admitted for intractable abdominal pain, nausea, vomiting , diarrhea. Pt has not vomitted nor had diarrhea during admission. Angry person towards staff members. Plan: Abdominal pain: * GI consulted, help appreciated * ID consulted, help appreciated * CT abd/pelvis: no acute solid visceral abnormality, dilated common duct post cholecystectomy, prior hysterectomy mild ileus, no obstruction [ see full report ] * Diet advanced to heart healthy and tolerating well * continue IVF hydration NS@100 * Vancomycin and Doxycyclin as per ID * Continue protonix * Tramadol 25mg Q6H PRN severe pain * Ativan 1mg Q4H PRN mod pain * Zofran 4mg IVP Q6H PRN Nausea * FU Stool cultures and leukocytes * FOB positive- patient has hemorroids * C. diff negative * Gabapentin added for neuropathic pain Hx of Seizures * Cont home med: Klonopin, Depakote, Lamictal, Zanaflex, Mobic s/p total hysterectomy * Cont home med: Conjugated estrogen cream Bipolar d/o/depression * Psych consulted, help appreicated * Cont home med: Remeron, Zoloft Hx asthma/COPD * Cont home med: Claritin, Singulair, Albuterol * Continue Brovana, Pulmicort * Monitor L groin abscess * remains afebrile w/o leukocytosis * Blood cultures negative * HIV negative * Surgery consulted, help appreciated * Ultrasound ordered, patient refused Hx Migraines * Cont home med: Butalbital Hx vitamin deficiency * Cont home med: Ergocalciferol GI/DVT ppx * Protonix * SCDs * Lovenox Assessed and discussed with attending physician. <Sekou PIERCE,Wilfredo - Last Filed: 08/26/16 11:59> Objective - Vital Signs/Intake and Output Vital Signs (last 24 hours): Temp Pulse Resp BP Pulse Ox 97.7 F 72 20 124/77 97 08/26/16 08:38 08/26/16 08:38 08/26/16 08:38 08/26/16 08:38 08/26/16 08:38 - Medications Medications: Current Medications Albuterol Sulfate (Albuterol 0.042% Inhal Valeria (1.25mg/3ml) Ud) 1.25 mg IH [id number] PRN PRN Reason: Wheezing Arformoterol Tartrate (Brovana) 15 mcg IH DAILY [facility] Last Admin: 08/24/16 09:13 Dose: Not Given Budesonide (Pulmicort Respules) 0.25 mg IH DAILY [facility] Last Admin: 08/24/16 09:13 Dose: Not Given Clonazepam (Klonopin) 1 mg PO BID [facility] PRN Reason: Protocol Last Admin: 08/26/16 09:47 Dose: 1 mg Divalproex Sodium (Depakote Er(Once Daily)) 500 mg PO Q12 [facility] PRN Reason: Protocol Last Admin: 08/26/16 09:47 Dose: 500 mg Doxycycline Hyclate (Doryx) 100 mg PO Q12 [facility] PRN Reason: Protocol Last Admin: 08/26/16 09:47 Dose: 100 mg Enoxaparin Sodium (Lovenox) 40 mg SC DAILY [facility] PRN Reason: Protocol Last Admin: 08/26/16 09:47 Dose: Not Given Ergocalciferol (Drisdol 50,000 Intl Units Cap) 1 cap PO Q7D [facility] Last Admin: 08/24/16 09:48 Dose: 1 cap Estrogens Conjugated (Premarin) 0.625 mg PO DAILY [facility] Last Admin: 08/26/16 09:48 Dose: 0.625 mg Gabapentin (Neurontin) 100 mg PO BID [facility] PRN Reason: Protocol Last Admin: 08/26/16 09:48 Dose: 100 mg Lamotrigine (Lamictal) 100 mg PO BID [facility] PRN Reason: Protocol Last Admin: 08/26/16 09:47 Dose: 100 mg Loratadine (Claritin) 10 mg PO DAILY [facility] Last Admin: 08/26/16 09:46 Dose: 10 mg Meloxicam (Mobic) 7.5 mg PO DIN [facility] Last Admin: 08/25/16 17:08 Dose: 7.5 mg Mirtazapine (Remeron) 30 mg PO HS [facility] Last Admin: 08/25/16 22:29 Dose: 30 mg Montelukast Sodium (Singulair) 10 mg PO DAILY [facility] Last Admin: 08/26/16 09:48 Dose: 10 mg Non-Formulary Medication (Butalbital [Butalbital]) 50 mg PO BID [facility] Last Admin: 08/26/16 09:41 Dose: Not Given Ondansetron HCl (Zofran Odt) 4 mg PO Q6H PRN PRN Reason: Nausea/Vomiting Pantoprazole Sodium (Protonix Ec Tab) 40 mg PO ACB [facility] Last Admin: 08/26/16 08:01 Dose: 40 mg Sertraline HCl (Zoloft) 50 mg PO HS [facility] Last Admin: 08/25/16 22:29 Dose: 50 mg Tizanidine HCl (Zanaflex) 4 mg PO HS [facility] Last Admin: 08/25/16 22:29 Dose: 4 mg Tramadol HCl (Ultram) 50 mg PO TID PRN PRN Reason: Pain, severe (8-10) Last Admin: 08/25/16 17:07 Dose: 50 mg - Labs Labs: 08/26/16 08:40 08/26/16 08:40 Attending/Attestation - Attestation I have personally seen and examined this patient.: Yes I have fully participated in the care of the patient.: Yes I have reviewed all pertinent clinical information, including history, physical exam and plan: Yes Notes (Text): Patient was seen and examined with electromedical service engineer .Agreed with resident assessment and plan. 36 F w/PMH sig for IBS, diverticulosis, PTSD, bipolar d/o, hemorrhoids, GERD, recent c diff infection, chronic migraines, depression and chronic pain syndrome admitted for intractable abdominal pain, nausea, vomiting, diarrhea. Pt has not vomited nor had diarrhea during admission, Patient is afebrile, not in acute distress, demanding IV Pain medication but does not looks to be in pain.Stool studies were negative for C diff colitis.Hemoglobin is stable.Patient requested to be seen by .Phone call was made to regarding transfer of care, patient s well known to him, he agreed with plan of care but said that he is not available to see her in the hospital.Patient case was also discussed with patient PCP over the phone.She clinically does not has any thigh /groin abscess.USG is pending, patient is refusing to go for USG.She is also on Doxycycline as per ID.She was offered to be seen by but she refused.Patient is very non cooperative in her care.GI evaluation is pending, if no work up needed as per GI , she can be discharged home. Management plan was discussed in detail with patient Education was provided.
--- NOTE | 2016-08-25 19:49 | CP.PCM.PN ---
Subjective - Date & Time of Evaluation Date of Evaluation: 08/25/16 Time of Evaluation: 10:55 - Subjective Subjective: Comfortable in bed, afebrile, no diarrhea, not in distress. Objective - Vital Signs/Intake and Output Vital Signs (last 24 hours): Temp Pulse Resp BP Pulse Ox 97.8 F 78 18 97/56 L 96 08/25/16 16:00 08/25/16 16:00 08/25/16 16:00 08/25/16 16:00 08/25/16 16:00 Intake and Output: 08/25/16 08/26/16 18:59 06:59 Intake Total 500 Balance 500 - Medications Medications: Current Medications Albuterol Sulfate (Albuterol 0.042% Inhal Valeria (1.25mg/3ml) Ud) 1.25 mg IH [id number] PRN PRN Reason: Wheezing Arformoterol Tartrate (Brovana) 15 mcg IH DAILY [facility] Last Admin: 08/24/16 09:13 Dose: Not Given Budesonide (Pulmicort Respules) 0.25 mg IH DAILY [facility] Last Admin: 08/24/16 09:13 Dose: Not Given Clonazepam (Klonopin) 1 mg PO BID [facility] PRN Reason: Protocol Last Admin: 08/25/16 17:08 Dose: 1 mg Divalproex Sodium (Depakote Er(Once Daily)) 500 mg PO Q12 [facility] PRN Reason: Protocol Last Admin: 08/25/16 09:03 Dose: 500 mg Doxycycline Hyclate (Doryx) 100 mg PO Q12 [facility] PRN Reason: Protocol Last Admin: 08/25/16 11:06 Dose: 100 mg Enoxaparin Sodium (Lovenox) 40 mg SC DAILY [facility] PRN Reason: Protocol Last Admin: 08/25/16 11:03 Dose: Not Given Ergocalciferol (Drisdol 50,000 Intl Units Cap) 1 cap PO Q7D [facility] Last Admin: 08/24/16 09:48 Dose: 1 cap Estrogens Conjugated (Premarin) 0.625 mg PO DAILY [facility] Last Admin: 08/25/16 09:07 Dose: 0.625 mg Gabapentin (Neurontin) 100 mg PO BID [facility] PRN Reason: Protocol Last Admin: 08/25/16 17:08 Dose: 100 mg Sodium Chloride (Sodium Chloride 0.9%) 1,000 mls @ 100 mls/hr IV .Q10H [facility] Last Admin: 08/25/16 14:53 Dose: 100 mls/hr Lamotrigine (Lamictal) 100 mg PO BID [facility] PRN Reason: Protocol Last Admin: 08/25/16 17:57 Dose: 100 mg Loratadine (Claritin) 10 mg PO DAILY [facility] Last Admin: 08/25/16 09:03 Dose: 10 mg Lorazepam (Ativan) 1 mg IVP Q6H PRN; Protocol PRN Reason: Pain, moderate (4-7) Last Admin: 08/24/16 02:04 Dose: 1 mg Meloxicam (Mobic) 7.5 mg PO DIN [facility] Last Admin: 08/25/16 17:08 Dose: 7.5 mg Mirtazapine (Remeron) 30 mg PO HS [facility] Last Admin: 08/24/16 21:40 Dose: 30 mg Montelukast Sodium (Singulair) 10 mg PO DAILY [facility] Last Admin: 08/25/16 09:03 Dose: 10 mg Non-Formulary Medication (Butalbital [Butalbital]) 50 mg PO BID [facility] Last Admin: 08/25/16 17:10 Dose: Not Given Ondansetron HCl (Zofran Inj) 4 mg IVP Q6 PRN PRN Reason: Nausea/Vomiting Last Admin: 08/25/16 17:09 Dose: 4 mg Pantoprazole Sodium (Protonix Ec Tab) 40 mg PO ACB [facility] Last Admin: 08/25/16 08:32 Dose: 40 mg Sertraline HCl (Zoloft) 50 mg PO [facility] Last Admin: 08/24/16 21:42 Dose: 50 mg Tizanidine HCl (Zanaflex) 4 mg PO HS [facility] Last Admin: 08/24/16 21:42 Dose: 4 mg Tramadol HCl (Ultram) 50 mg PO TID PRN PRN Reason: Pain, severe (8-10) Last Admin: 08/25/16 17:07 Dose: 50 mg - Labs Labs: 08/25/16 09:20 08/25/16 09:20 - Constitutional Appears: Non-toxic, No Acute Distress - Head Exam Head Exam: NORMAL INSPECTION - Cardiovascular Exam Cardiovascular Exam: +S1, +S2 - GI/Abdominal Exam GI & Abdominal Exam: Soft. absent: Tenderness Assessment and Plan - Assessment and Plan (Free Text) Plan: Assessment Abdominal pain, without evidence of Cdiff infection Small thigh skin and skin structure infection (folliculitis) history of Cdiff associated diarrhea asthma history of migraines inflammatory bowel disease and irritable bowel disease ovarian cyst history of diverticulitis anxiety disorder history of cholecystectomy S/P appendectomy history of hysterectomy Plan will d/c PO Vancomycin and continue doxycycline day 2 for the folliculitis Will monitor clinically
--- NOTE | 2016-08-25 20:24 | CON ---
DATE: 08/25/2016 Seen and examined at the bedside earlier this afternoon. REQUEST FOR CONSULT: Abdominal pain. HISTORY OF PRESENT ILLNESS: This is a 36-year-old female with multiple medical admissions and seen b y our service in the past. She has history of irritable bowel syndrome, gastroesophageal reflux dise ase, abdominal diverticulosis as well as asthma, COPD, bipolar disorder and recent Clostridium diffic ile infection coming to the hospital with complaints of left lower quadrant and suprapubic abdominal discomfort times at least 3 days. The patient states that she it is a sharp stabbing pain, 10 out of 10. Pain increases with oral intake. She did complain of having nausea and vomiting today. She wa s not able to tolerate her liquid diet. The patient states that she takes morphine and Benadryl at h ome, which helps with her pain. She does have a history of chronic abdominal pain, but states that t his pain in the left lower quadrant is different. She also complains of feeling chills, weak, as wel l as some nausea and also complaining of pain in her left groin. She was reported having a bowel mov ement today, which was formed. She denies any blood per rectum. On admission, she had a CT scan of abdomen and pelvis and this reported no acute solid visceral abnor mality, showed mild ileus, no obstruction. Did show diverticulosis without CT findings of diverticul itis. PAST MEDICAL HISTORY: Irritable bowel syndrome, anxiety, depression, colitis, recent Clostridium dif ficile, diverticulosis, seizures, anemia, asthma, COPD. PAST SURGICAL HISTORY: Total hysterectomy and bilateral oophorectomy, cholecystectomy, appendectomy, tonsillectomy, last endoscopy was in 2012, gastritis. SOCIAL HISTORY: Positive for smoking. Denies ETOH. Denies substance abuse. FAMILY HISTORY: Father recently diagnosed with stage IV cancer. ALLERGIES: He has multiple drug allergies. CIPROFLOXACIN, LATEX, PENICILLIN, ASPIRIN, AZTREONAM, HYD ROMORPHONE, HYDROCHLORIDE, SULFA AND CODEINE. MEDICATIONS: Reviewed as per MAR. REVIEW OF SYSTEMS: Systems reviewed with positive findings, see HPI. VITAL SIGNS: Temperature is 97.8, blood pressure is 95/62, respirations 18, 97 on room air. LABORATORY DATA: WBC 5.1, H and H is 13.2 and 38.3, platelets are 235. Chem: Sodium 140, K is 3.9, BUN 11, creatinine is 0.7. LFTs are within normal limits. Stool guaiac is positive for blood. The patient had H1 and 2 is negative. IMAGING: CT scan abdomen and pelvis with IV contrast shows no acute solid visceral abnormality, dila binta common duct, status post cholecystectomy, prior hysterectomy, mild ileus, no obstruction, diverti culosis without CT findings of diverticulitis. There is moderate stool in the right colon. The left colon is collapsed, which limits evaluation. Lymph nodes, there is shotty adenopathy, mild fatty inf iltration. PHYSICAL EXAMINATION: HEENT: Sclerae are anicteric. NECK: Supple. CARDIAC: S1, S2. LUNGS: Decreased breath sounds but good air entry. No rales or wheeze. ABDOMEN: With bowel sounds, it is soft. Lower abdominal tenderness. The patient flinched as I touc hed her abdomen. EXTREMITIES: Positive pedal pulses. No edema. She has abscess on her left groin. NEUROLOGIC: Awake, alert, and oriented. ASSESSMENT: A 36-year-old female with past medical history of irritable bowel syndrome, diverticulos is, anemia, gastroesophageal reflux disease, complaining of intractable abdominal pain, nausea, vomit ing and diarrhea. History of recent Clostridium difficile colitis. Looks like may have constipation . History of bipolar disorder, chronic abdominal pain, left groin abscess. PLAN: The patient is asking for increased pain medicine. The patient is on antibiotics of doxycycli ne. She is getting Protonix, is on IV fluids, on oral vancomycin. She is on Ultram for pain, gettin g Zoloft. On Ativan and Mobic. Also on Lovenox for DVT prophylaxis. Continue the clear liquid diet . Stool studies were sent for O and P. She is also noted to be guaiac positive. H and H is stable. Follow up fecal leukocytes. Pending extremity ultrasound for left leg. Thank you for this consult and for allowing us to participate in your patient's care. Will make furt her recommendations based upon patient's clinical course. The patient was seen and case discussed wi Dr. Mason. Jessica CISSE cc: [id number] TT: 08/25/2016 20:24:28 Confirmation # [id number] Dictation # [id number] rn
[2016-08-26] MEDS: Pantoprazole 40 mg EC Tab PO SCH (08:01)
[2016-08-26 08:39] VITALS: RESP 20
[2016-08-26 08:53] LABS: ADD MANUAL DIFF? NO
[2016-08-26 08:56] LABS: BASO # 0.02 K/mm3 (0.0-2.0); BASO % 0.3 % (0.0-3.0); EOS # 0.2 (0.0-0.7); EOS % 3.6 % (1.5-5.0); GRAN # 3.11 (1.4-6.5); GRAN % 53.5 % (50.0-68.0); HEMATOCRIT 41.4 % (36.0-48.0); LYMPH % 34.9 % (22.0-35.0); MEAN CELL VOLUME 94.3 fL (80.0-105.0); MEAN CORPUSCULAR HEMOGLOBIN 33.3 pg (25.0-35.0); MEAN CORPUSCULAR HGB CONC 35.3 g/dl (31.0-37.0); MEAN PLATELET VOLUME 11.3 fl (7.0-11.0); MONO # 0.5 (0.1-0.6); MONO % 7.7 % (1.0-6.0); PLATELET COUNT 259 10^3/uL (120.0-450.0); WHITE BLOOD COUNT 5.8 10^3/ul (4.5-11.0)
[2016-08-26 09:07] LABS: ALB/GLOB RATIO 1.2 (1.1-1.8); ALKALINE PHOSPHATASE 95 U/L (38-133); ALT/SGPT 34 U/L (7-56); AST/SGOT 22 U/L (15-39); BILIRUBIN,TOTAL 0.5 mg/dL (0.2-1.3); BLOOD UREA NITROGEN 12 mg/dL (7-21); CALCIUM 9.5 mg/dL (8.4-10.5); CARBON DIOXIDE 24 mmol/L (21-33); CHLORIDE 104 mmol/L (98-107); GFR AFRICAN-AMERICAN > 60; GLUCOSE,RANDOM 119 mg/dL (70-110); SODIUM 140 mmol/L (132-148); TOTAL PROTEIN 8.3 g/dL (5.8-8.3)
[2016-08-26] MEDS: BUTALBITAL PO SCH (09:41)
[2016-08-26] MEDS: Enoxaparin 40 mg Syringe SC SCH (09:47)
[2016-08-26] MEDS: Divalproex 500 mg ER (ONCE DAILY formulation) PO SCH (09:47)
--- NOTE | 2016-08-26 15:18 | US ---
PROCEDURE: Left lower extremity ultrasound HISTORY: left leg rule out abscess COMPARISON: None TECHNIQUE: Targeted high-resolution ultrasound of the left medial thigh was performed with real-time linear scanner FINDINGS: At the site of clinically palpable lump, there is a subcutaneous 7 x 5 x 9 mm hypoechoic lesion with irregular margins and increased peripheral vascularity. There is also diffuse subcutaneous edema. IMPRESSION: Findings are most compatible with subcentimeter fluid collection and cellulitis at the site of clinically palpable lump. The sterility of this collection cannot be determined on the basis of imaging. Clinical and laboratory correlation is advised.
--- NOTE | 2016-08-26 15:50 | CP.PCM.DIS ---
<Jame Miranda - Last Filed: 08/26/16 16:44> Provider - Provider Date of Admission: 08/26/16 07:51 Attending physician: Wilfredo Sapp MD Primary care physician: Lorene Sanchez MD Consults: Dr. Con Florence Time Spent in preparation of Discharge (in minutes): 35 Hospital Course - Lab Results Lab Results: Most Recent Lab Values WBC 5.8 10^3/ul (4.5-11.0) 08/26/16 08:40 RBC 4.39 10^6/uL (3.5-6.1) 08/26/16 08:40 Hgb 14.6 gm/dL (12.0-16.0) 08/26/16 08:40 Hct 41.4 % (36.0-48.0) 08/26/16 08:40 MCV 94.3 fL (80.0-105.0) 08/26/16 08:40 MCH 33.3 pg (25.0-35.0) 08/26/16 08:40 MCHC 35.3 g/dl (31.0-37.0) 08/26/16 08:40 RDW 12.0 % (11.5-14.5) 08/26/16 08:40 Plt Count 259 10^3/uL (120.0-450.0) 08/26/16 08:40 MPV 11.3 fl (7.0-11.0) H 08/26/16 08:40 Gran % 53.5 % (50.0-68.0) 08/26/16 08:40 Lymph % (Auto) 34.9 % (22.0-35.0) 08/26/16 08:40 [place] % (Auto) 7.7 % (1.0-6.0) H 08/26/16 08:40 Eos % (Auto) 3.6 % (1.5-5.0) 08/26/16 08:40 Baso % (Auto) 0.3 % (0.0-3.0) 08/26/16 08:40 Gran # 3.11 (1.4-6.5) 08/26/16 08:40 Lymph # 2.0 (1.2-3.4) 08/26/16 08:40 [place] # 0.5 (0.1-0.6) 08/26/16 08:40 Eos # 0.2 (0.0-0.7) 08/26/16 08:40 Baso # 0.02 K/mm3 (0.0-2.0) 08/26/16 08:40 Sodium 140 mmol/L (132-148) 08/26/16 08:40 Potassium 4.0 mmol/L (3.6-5.0) 08/26/16 08:40 Chloride 104 mmol/L (98-107) 08/26/16 08:40 Carbon Dioxide 24 mmol/L (21-33) 08/26/16 08:40 Anion Gap 16 (10-20) 08/26/16 08:40 BUN 12 mg/dL (7-21) 08/26/16 08:40 Creatinine 0.7 mg/dL (0.5-1.4) 08/26/16 08:40 Est GFR ( Amer) > 60 08/26/16 08:40 Est GFR (Non-Af Amer) > 60 08/26/16 08:40 Random Glucose 119 mg/dL (70-110) H 08/26/16 08:40 Calcium 9.5 mg/dL (8.4-10.5) 08/26/16 08:40 Total Bilirubin 0.5 mg/dL (0.2-1.3) 08/26/16 08:40 AST 22 U/L (15-39) 08/26/16 08:40 ALT 34 U/L (7-56) 08/26/16 08:40 Alkaline Phosphatase 95 U/L (38-133) 08/26/16 08:40 Total Protein 8.3 g/dL (5.8-8.3) 08/26/16 08:40 Albumin 4.4 g/dL (3.0-4.8) 08/26/16 08:40 Globulin 3.8 gm/dL 08/26/16 08:40 Albumin/Globulin Ratio 1.2 (1.1-1.8) 08/26/16 08:40 Amylase 38 U/L (35-125) 08/23/16 19:10 Lipase 30 U/L (23-300) 08/23/16 19:10 Urine Color Yellow (YELLOW) 08/23/16 22:10 Urine Appearance Clear (CLEAR) 08/23/16 22:10 Urine pH 7.5 (4.7-8.0) 08/23/16 22:10 Ur Specific [place] 1.010 (1.005-1.035) 08/23/16 22:10 Urine Protein Negative mg/dL (<30 mg/dL) 08/23/16 22:10 Urine Glucose (UA) Negative mg/dL (NEGATIVE) 08/23/16 22:10 Urine Ketones Negative mg/dL (NEGATIVE) 08/23/16 22:10 Urine Blood Negative (NEGATIVE) 08/23/16 22:10 Urine Nitrate Negative (NEGATIVE) 08/23/16 22:10 Urine Bilirubin Negative (NEGATIVE) 08/23/16 22:10 Urine Urobilinogen 0.2 E.U./dL (<1 E.U./dL) 08/23/16 22:10 Ur Leukocyte Esterase Negative Maria Alejandra/uL (NEGATIVE) 08/23/16 22:10 Stool Occult Blood Positive (NEGATIVE) H 08/25/16 10:56 HIV 1&2 Ag/Ab, 4th Gen Nonreactive (Nonreactive) 08/24/16 04:20 - Hospital Course Hospital Course: H&P: 36 F w/PMH sig for IBS, diverticulosis, seizure d/o, anemia, asthma, COPD, PTSD , bipolar d/o, hemorrhoids, GERD, recent c diff infection, chronic migraines, depression and anxiety admitted for intractable abdominal pain x 3 days. Pain is suprapubic and in LLQ, radiates to left low back, constant since onset 5 days [employer]. Pain onset during the middle of the night, on inciting factors identified. Pt states she woke up and felt the urge to defecate, had some fecal incontinence prior to making it to the bathroom. Pt states that she is on a pain regimen of Morphine 4mg w/Benadryl 25mg at home, which helps alleviate the pain. Eating & drinking identified as aggravating factors. Has been on pain regimen for a few weeks as per PMD. Pt seen by PMD on day of admission - started Flagyl 500mg BID. 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 Denies sexual contact x 2-3 mos, fevers, rhinorrhea, sinus congestion , constipation. Hospital Course: Patient is a 36 y/o F who presented with abdominal pain. She was found to be afebrile without leukocytosis. A CT of the abdomen showed no acute solid visceral abnormality, dilated common duct post cholecystectomy, prior hysterectomy mild ileus, no obstruction. She was started on Ultram for pain control and GI was consulted. Surgery was consulted due to possible left leg abscess. Ultrasound was performed showing sub-centimeter subcutaneous collection. Per surgery, not enough fluid for drainage. The patient complained of nausea and had one episode of vomiting and was treated with Zofran. ID was consulted and she was started on oral doxycycline. Due to no medical cause for her pain control, psychiatry was consulted due to her psychiatric history. The patient was continued on her psych medications. She was very uncooperative with ultrasound technicians, verbally abusive to staff and physicians. She would complain of severe pain; however, would be seen walking around her room, resting comfortably in bed, and talking on the phone. Per GI and surgery, patient able to be discharged. She was determined medically stable for discharge. She was advised to: follow up with your primary care physician and gastroeterologist within a week; resume home medications; take medications as prescribed; resume warm compresses to leg abscess; refrain from alcohol, tobacco , or drug use; continue to see your out patient psychiatrist; and if your condition worsens or new symptoms arise, please return to the emergency room. She verbalized understanding and was discharged with prescriptions for doxycycline,tramadol, zofran, and protonix. This is a brief summary of the patient's stay at this facility. For more detail , see patient's full chart. - Date & Time of H&P Date of H&P: 08/24/16 Time of H&P: 00:30 Discharge Exam - Head Exam Head Exam: ATRAUMATIC, NORMAL INSPECTION, NORMOCEPHALIC - Eye Exam Eye Exam: EOMI, Normal appearance, PERRL Pupil Exam: NORMAL ACCOMODATION, PERRL - ENT Exam ENT Exam: Mucous Membranes Moist. absent: Normal Oropharynx (lip piercing) - Respiratory Exam Respiratory Exam: NORMAL BREATHING PATTERN. absent: Rales, Rhonchi, Wheezes - Cardiovascular Exam Cardiovascular Exam: REGULAR RHYTHM, +S1, +S2. absent: Gallop, Rubs, Systolic Murmur - GI/Abdominal Exam GI & Abdominal Exam: Normal Bowel Sounds, Soft, Tenderness (left lower quadrant) . absent: Distended, Guarding, Mass - Extremities Exam Extremities exam: normal inspection - Back Exam Back exam: NORMAL INSPECTION. absent: rash noted, tenderness - Neurological Exam Neurological exam: Alert, CN II-XII Intact, Oriented x3 - Psychiatric Exam Psychiatric exam: Normal Affect, Normal Mood - Skin Skin Exam: Dry, Intact, Normal Color, Warm Discharge Plan - Discharge Medications Prescriptions: Doxycycline Hyclate [Doryx] 100 mg PO Q12 #6 cap Ondansetron [Zofran Tab] 4 mg PO Q8H PRN #12 tab PRN Reason: Nausea/Vomiting Pantoprazole Sodium [Protonix] 20 mg PO DAILY #30 traMADol [Ultram] 50 mg PO TID PRN #9 tab PRN Reason: Pain, Severe (8-10) - Follow Up Plan Condition: FAIR Disposition: HOME/ ROUTINE Instructions: Rotavirus Infection (DC), Rotavirus Infection (GEN), Heart Healthy Diet (DC), Acute Diarrhea (GEN), Acute Abdominal Pain (DC), Acute Abdominal Pain (GEN), Folliculitis (DC), Abscess (GEN), Nutrition Tips for Relief of Diarrhea (DC), Nutrition Tips for Relief of Diarrhea (GEN) Additional Instructions: You are medically stable for discharge. Please follow up with your primary care physician and gastroeterologist within a week. Please resume home medications. You are discharged with doxycycline,tramadol, zofran, and protonix. Please take medications as prescribed. Please resume warm compresses to leg abscess. Please refrain from alcohol, tobacco, or drug use. Please continue to see your out patient psychiatrist If your condition worsens or new symptoms arise, please return to the emergency room. Referrals: Lorene Sanchez MD [Primary Care Provider] - Con Mason MD [Medical Doctor] - <Wilfredo Sapp MD - Last Filed: 08/27/16 07:43> Provider - Provider Date of Admission: 08/23/16 22:54 Attending physician: Wilfredo Sapp MD Primary care physician: Lorene Sanchez MD Hospital Course - Lab Results Lab Results: Micro Results 08/24/16 04:20 Blood-Venous Blood Culture - Preliminary NO GROWTH AFTER 3 DAYS 08/24/16 04:00 Blood-Venous Blood Culture - Preliminary NO GROWTH AFTER 3 DAYS 08/25/16 10:56 Stool C. difficile Antigen & Toxin A,B (M - Final Most Recent Lab Values WBC 5.8 10^3/ul (4.5-11.0) 08/26/16 08:40 RBC 4.39 10^6/uL (3.5-6.1) 08/26/16 08:40 Hgb 14.6 gm/dL (12.0-16.0) 08/26/16 08:40 Hct 41.4 % (36.0-48.0) 08/26/16 08:40 MCV 94.3 fL (80.0-105.0) 08/26/16 08:40 MCH 33.3 pg (25.0-35.0) 08/26/16 08:40 MCHC 35.3 g/dl (31.0-37.0) 08/26/16 08:40 RDW 12.0 % (11.5-14.5) 08/26/16 08:40 Plt Count 259 10^3/uL (120.0-450.0) 08/26/16 08:40 MPV 11.3 fl (7.0-11.0) H 08/26/16 08:40 Gran % 53.5 % (50.0-68.0) 08/26/16 08:40 Lymph % (Auto) 34.9 % (22.0-35.0) 08/26/16 08:40 [place] % (Auto) 7.7 % (1.0-6.0) H 08/26/16 08:40 Eos % (Auto) 3.6 % (1.5-5.0) 08/26/16 08:40 Baso % (Auto) 0.3 % (0.0-3.0) 08/26/16 08:40 Gran # 3.11 (1.4-6.5) 08/26/16 08:40 Lymph # 2.0 (1.2-3.4) 08/26/16 08:40 [place] # 0.5 (0.1-0.6) 08/26/16 08:40 Eos # 0.2 (0.0-0.7) 08/26/16 08:40 Baso # 0.02 K/mm3 (0.0-2.0) 08/26/16 08:40 Sodium 140 mmol/L (132-148) 08/26/16 08:40 Potassium 4.0 mmol/L (3.6-5.0) 08/26/16 08:40 Chloride 104 mmol/L (98-107) 08/26/16 08:40 Carbon Dioxide 24 mmol/L (21-33) 08/26/16 08:40 Anion Gap 16 (10-20) 08/26/16 08:40 BUN 12 mg/dL (7-21) 08/26/16 08:40 Creatinine 0.7 mg/dL (0.5-1.4) 08/26/16 08:40 Est GFR ( Amer) > 60 08/26/16 08:40 Est GFR (Non-Af Amer) > 60 08/26/16 08:40 Random Glucose 119 mg/dL (70-110) H 08/26/16 08:40 Calcium 9.5 mg/dL (8.4-10.5) 08/26/16 08:40 Total Bilirubin 0.5 mg/dL (0.2-1.3) 08/26/16 08:40 AST 22 U/L (15-39) 08/26/16 08:40 ALT 34 U/L (7-56) 08/26/16 08:40 Alkaline Phosphatase 95 U/L (38-133) 08/26/16 08:40 Total Protein 8.3 g/dL (5.8-8.3) 08/26/16 08:40 Albumin 4.4 g/dL (3.0-4.8) 08/26/16 08:40 Globulin 3.8 gm/dL 08/26/16 08:40 Albumin/Globulin Ratio 1.2 (1.1-1.8) 08/26/16 08:40 Amylase 38 U/L (35-125) 08/23/16 19:10 Lipase 30 U/L (23-300) 08/23/16 19:10 Urine Color Yellow (YELLOW) 08/23/16 22:10 Urine Appearance Clear (CLEAR) 08/23/16 22:10 Urine pH 7.5 (4.7-8.0) 08/23/16 22:10 Ur Specific [place] 1.010 (1.005-1.035) 08/23/16 22:10 Urine Protein Negative mg/dL (<30 mg/dL) 08/23/16 22:10 Urine Glucose (UA) Negative mg/dL (NEGATIVE) 08/23/16 22:10 Urine Ketones Negative mg/dL (NEGATIVE) 08/23/16 22:10 Urine Blood Negative (NEGATIVE) 08/23/16 22:10 Urine Nitrate Negative (NEGATIVE) 08/23/16 22:10 Urine Bilirubin Negative (NEGATIVE) 08/23/16 22:10 Urine Urobilinogen 0.2 E.U./dL (<1 E.U./dL) 08/23/16 22:10 Ur Leukocyte Esterase Negative Maria Alejandra/uL (NEGATIVE) 08/23/16 22:10 Stool Occult Blood Positive (NEGATIVE) H 08/25/16 10:56 Stool Leukocytes, Qual Negative (NEGATIVE) 08/24/16 01:39 HIV 1&2 Ag/Ab, 4th Gen Nonreactive (Nonreactive) 08/24/16 04:20 Attending/Attestation - Attestation I have personally seen and examined this patient.: Yes I have fully participated in the care of the patient.: Yes I have reviewed all pertinent clinical information, including history, physical exam and plan: Yes Notes (Text): Patient was seen and examined with medical billing service .Agreed with resident assessment and plan. 36 F w/PMH sig for IBS, diverticulosis, PTSD, bipolar d/o, hemorrhoids, GERD, recent c diff infection, chronic migraines, depression and chronic pain syndrome was admitted for intractable abdominal pain, nausea, vomiting, diarrhea. Patient did not has vomiting or diarrhea during her stay in the hospital, Patient is afebrile, not in acute distress, demanding IV Pain medication but does not looks to be in pain.Stool studies were negative for C diff colitis.Hemoglobin is stable.She was evaluated by GI and out patient Colonoscopy has been recommended.Patient was also evaluated by surgery during her stay in the hospital for indurating on right uper thigh, clinically this is not abscess, patient is afebrile, no leukocytosis.Patient was also seen by ID and oral doxycycline was recommended.Patient is very non compliance and has pain medication seeking behaviour.The risk of readmission is very high. Management plan was discussed in detail with patient Education was provided.
--- NOTE | 2016-08-26 15:51 | PN ---
DATE: 08/26/2016 The patient is in bed, in no acute distress, nontoxic. PHYSICAL EXAMINATION: VITAL SIGNS: Temperature is 97, blood pressure is 120/70, respiratory rate of 20. HEENT: Unremarkable. NECK: Supple. LUNGS: Have decreased breath sounds. HEART: Normal S1, S2. ABDOMEN: Soft, nontender. LABORATORY EXAMINATION: Reveals a white count of 5.8, hemoglobin of 14, platelets of 259. HIV is ne gative. ASSESSMENT AND PLAN: A 36-year-old female with a history of asthma, history of migraine, inflammator y bowel disease, irritable bowel disease, ovarian cyst, history of diverticulitis, who [facility] with abdominal pain and small skin and skin soft tissue folliculitis, on doxyc ycline p.o. Alex Robertson MD cc: 350 TT: 08/26/2016 15:50:11 Confirmation # [id number] Dictation # [id number]
[2016-08-26 16:14] VITALS: BP 140/93; PULSE 103; TEMP 99; O2SAT 93
--- NOTE | 2016-08-26 17:26 | PN ---
DATE: 08/26/2016 Seen and examined at the bedside earlier today. She is still having abdominal pain, is moving her amy wels with no diarrhea. Stool for Clostridium difficile was sent yesterday and it was negative for to osman and antigen. Reports that she is unable to finish her lunch, she gets nauseous and vomited. No reports of any overt GI bleed. Went for an ultrasound of her left thigh and it shows a fluid collect ion and cellulitis. VITAL SIGNS: Temperature is 97.7, blood pressure 124/77, pulse 72, respirations 20, 97 on room air. LABORATORY DATA: WBC 5.8, hemoglobin is 14.6, hematocrit 41.4, platelets of 259. Sodium 140, K 4.0, BUN is 12, creatinine is 0.7. LFTs are within normal limits. Stool for occult blood was done and i t was positive. PHYSICAL EXAMINATION: HEENT: Sclerae anicteric. NECK: Supple. CARDIAC: S1 and S2. LUNGS: Clear. ABDOMEN: With bowel sounds. Soft. Positive tenderness, no rebound or guarding. EXTREMITIES: No edema. NEUROLOGIC: Awake, alert, oriented. ASSESSMENT: A 36-year-old female with a past medical history of irritable bowel syndrome, diverticul osis, anemia, gastroesophageal reflux disease, with complaining of intractable abdominal pain. The p atient does have a history of chronic abdominal pain, came with left groin abscess and constipation, history of bipolar disorder. PLAN: Follow up stool studies for O and P. Continue to monitor H and H, it is stable. The patient would likely benefit from elective outpatient colonoscopy. The patient has been told to go for [facility] colonoscopy. Continue current diet. The patient will likely be discharged home today. The neel ent will be discharged on oral antibiotics and PPI. The patient will follow up in [facility] clinic. The patient was seen and case discussed with Dr. Mason. Jessica CISSE cc: [id number] TT: 08/26/2016 17:26:23 Confirmation # [id number] Dictation # [id number] alex
== END 2016-08-26 16:32 | disposition home or self-care (01) ==
LOC: ED 17:32 → ERH 22:54 → 5RSO 08-24 00:25 → INTOOBSV 08-26 07:51 → OBSVTOIN 08-26 07:51
PROVIDERS: ADMIT Internal Medicine; ATTEND Internal Medicine
DX: K58.0 Irritable bowel syndrome with diarrhea (principal); K21.9 Gastro-esophageal reflux disease without esophagitis; J44.9 Chronic obstructive pulmonary disease, unspecified; G40.909 Epilepsy, unspecified, not intractable, without status epilepticus; F31.9 Bipolar disorder, unspecified; K64.9 Unspecified hemorrhoids; D64.9 Anemia, unspecified; G89.4 Chronic pain syndrome; J45.909 Unspecified asthma, uncomplicated; G43.909 Migraine, unspecified, not intractable, without status migrainosus; F17.210 Nicotine dependence, cigarettes, uncomplicated; K57.90 Diverticulosis of intestine, part unspecified, without perforation or abscess without bleeding; F32.9 Major depressive disorder, single episode, unspecified; N89.8 Other specified noninflammatory disorders of vagina; N83.209 Unspecified ovarian cyst, unspecified side; L73.9 Follicular disorder, unspecified; F43.10 Post-traumatic stress disorder, unspecified; L03.116 Cellulitis of left lower limb; K59.00 Constipation, unspecified; N64.4 Mastodynia; Z76.5 Malingerer [conscious simulation]; Z91.19 Patient's noncompliance with other medical treatment and regimen; Z90.710 Acquired absence of both cervix and uterus; Z90.49 Acquired absence of other specified parts of digestive tract
CPT/HCPCS: 36415; 74177; 76881; 80053; 81003; 82150; 83690; 85025; 87040; 87177; 87209; 87324; 89055; 96361; 96365; 96366; 96372; 96375; 96376; 99285; G0328; G0378; J1650; J2060; J2270; J2405; J7040; Q9967

== ENCOUNTER 2016-11-17 17:38 | Observation (INO) | payer MEDICAID ==
[2016-11-17 17:39] VITALS: BMI 25.6
[2016-11-17] MEDS ORDERED: Sodium Chloride 0.9% 1,000 ML IV STA (18:04)
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
[2016-11-17 19:00] LABS: PH,URINE 7.5 (4.7-8.0); URINE BILIRUBIN NEGATIVE (NEGATIVE); URINE BLOOD SMALL (NEGATIVE); URINE GLUCOSE (UA) NEGATIVE (NEGATIVE); URINE LEUKOCYTE ESTERASE NEGATIVE Leu/uL (NEGATIVE); URINE NITRATE NEGATIVE (NEGATIVE); URINE PROTEIN NEGATIVE mg/dL (<30 mg/dL); URINE UROBILINOGEN 0.2 E.U./dL (<1 E.U./dL)
[2016-11-17 19:04] LABS: URINE APPEARANCE CLEAR (CLEAR); URINE COLOR YELLOW (YELLOW)
[2016-11-17 19:06] LABS: URINE BACTERIA TRACE (NEG); URINE RBC 0 - 2 /hpf (0-2); URINE WBC 0 - 2 /hpf (0-6)
[2016-11-17 19:34] LABS: BASO # 0.03 K/mm3 (0.0-2.0); BASO % 0.4 % (0.0-3.0); EOS # 0.3 (0.0-0.7); EOS % 3.2 % (1.5-5.0); GRAN # 4.19 (1.4-6.5); HEMOGLOBIN 13.3 gm/dL (12.0-16.0); LYMPH # 3.2 (1.2-3.4); LYMPH % 38.1 % (22.0-35.0); MEAN CELL VOLUME 94.7 fL (80.0-105.0); MEAN CORPUSCULAR HEMOGLOBIN 33.8 pg (25.0-35.0); MEAN CORPUSCULAR HGB CONC 35.7 g/dl (31.0-37.0); MEAN PLATELET VOLUME 12.6 fl (7.0-11.0); MONO # 0.7 (0.1-0.6); MONO % 8.3 % (1.0-6.0); PLATELET COUNT 201 10^3/uL (120.0-450.0); RBC 3.94 10^6/uL (3.5-6.1); RED CELL DISTRIBUTION WIDTH 12.1 % (11.5-14.5); WHITE BLOOD COUNT 8.4 10^3/ul (4.5-11.0)
[2016-11-17 19:41] LABS: INR 1.11 (0.93-1.08); PARTIAL THROMBOPLASTIN TIME 30.3 Seconds (23.7-30.8)
--- NOTE | 2016-11-17 19:41 | ED PDOC ---
Physical Exam Vital Signs Pulse Resp BP Pulse Ox 11/17/16 22:25 66 14 96/57 L 99 11/17/16 19:30 76 14 108/74 98 Temperature: Afebrile Blood Pressure: Normal Pulse: Regular Respiratory Rate: Normal Appearance: Positive for: Well-Appearing, Non-Toxic, Comfortable Pain Distress: None Mental Status: Positive for: Alert and Oriented X 3 - Systems Exam Respiratory/Chest: Present: Clear to Auscultation, Good Air Exchange. No: Respiratory Distress, Accessory Muscle Use Cardiovascular: Present: Regular Rate and Rhythm, Normal S1, S2. No: Murmurs Abdomen: Present: Tenderness (mild mid abdominal), Normal Bowel Sounds. No: Peritoneal Signs, Rebound, Guarding Medical Decision Making ED Course and Treatment: 11/17/16 19:39 Case endorsed from pending labs,CT abd/pelvis scan reassess/ disposition.Pt. with PMHX diverticulitis, asthma, COPD, abdominal hysterectomy, cholecystectomy, and irritable bowel syndrome, presents to the emergency department complaining of abdominal pain vomiting,diarrhea for 6 days.Also with dark stools guaic negative here.Currently stable. 11/17/16 21:58 Reviewed radiology, CT Abdomen and Pelvis shows: Lower thorax: Patchy nonspecific groundglass density and atelectatic changes are identified at the bilateral lung bases. There is a small hiatal hernia. ABDOMEN: Liver: There is mild hypodense fat infiltration of the liver. The liver measures 22.5 cm in the craniocaudad dimension. Gallbladder and bile ducts: There is mild biliary dilatation. The common bile duct measures 9 mm in diameter. Surgical clips are identified within the gallbladder fossa, compatible with cholecystectomy. Pancreas: Normal contour, without acute peripancreatic stranding Spleen: A few subcentimeter nodules are identified inferior to the spleen, suggestive of splenules. No splenomegaly. Adrenals: No mass. Kidneys and ureters: There is no hydronephrosis bilaterally. There is a tiny hypodense lesion within the left kidney, which is too small to characterize further. This is stable. Stomach and bowel: There is wall thickening of the duodenum, suggestive of duodenitis. There is no significant distention of the remaining small bowel. Moderate fecal material is visualized within the colon. Appendix: The appendix is absent. PELVIS: Bladder: No mass. Reproductive: The uterus is absent. ABDOMEN and PELVIS: Intraperitoneal space: No free air. There is mild stranding of the pelvic peritoneum, similar to the prior study. Bones/joints: There is mild levoscoliosis of the lower thoracic and lumbar spine. Vasculature: No abdominal aortic aneurysm. Lymph nodes: There is no significant retroperitoneal or intrapelvic lymphadenopathy. IMPRESSION: 1. There is mild hypodense fat infiltration of the liver. Hepatomegaly. 2. There is mild biliary dilatation. Correlation with serum bilirubin is recommended. 3. There is wall thickening of the duodenum, suggestive of duodenitis. 4. Incidental/non-acute findings are described ab Case discussed with biomedical equipment support specialist sewing techniques demonstrator, who is aware and verbalizes understanding. 11/17/16 21:[address] Rizzo, who is aware and agrees with plan. Accepts pt in to hospitalist service. [facility] will go to [facility] for intractable abdominal pain. - Lab Interpretations Lab Results: 11/17/16 19:19 11/17/16 19:19 Lab Results 11/17/16 19:19: Sodium 142, Potassium 3.7, Chloride 106, Carbon Dioxide 27, Anion Gap 13, BUN 10, Creatinine 0.6, Est GFR ( Amer) > 60, Est GFR (Non- Af Amer) > 60, Random Glucose 79, Calcium 9.2, Total Bilirubin 0.2, AST 17, ALT 20, Alkaline Phosphatase 73, Total Protein 6.8, Albumin 4.1, Globulin 2.7, Albumin/Globulin Ratio 1.5, Lipase 52 11/17/16 19:19: PT 12.0 H, INR 1.11 H, APTT 30.3 11/17/16 19:19: WBC 8.4 D, RBC 3.94, Hgb 13.3, Hct 37.3, MCV 94.7, MCH 33.8, MCHC 35.7, RDW 12.1, Plt Count 201, MPV 12.6 H, Gran % 50.0, Lymph % (Auto) 38.1 H, [place] % (Auto) 8.3 H, Eos % (Auto) 3.2, Baso % (Auto) 0.4, Gran # 4.19, Lymph # 3.2, [place] # 0.7 H, Eos # 0.3, Baso # 0.03 11/17/16 18:44: Urine Color Yellow, Urine Appearance Clear, Urine pH 7.5, Ur Specific [place] 1.015, Urine Protein Negative, Urine Glucose (UA) Negative, Urine Ketones Negative, Urine Blood Small H, Urine Nitrate Negative, Urine Bilirubin Negative, Urine Urobilinogen 0.2, Ur Leukocyte Esterase Negative, Urine RBC 0 - 2, Urine WBC 0 - 2, Ur Epithelial Cells 4 - 5, Urine Bacteria Trace - RAD Interpretation Radiology Orders: 11/17/16 18:06 ABD & PELVIS IV CONTRAST ONLY [CT] Stat - Medication Orders Current Medication Orders: Discontinued Medications Famotidine (Pepcid) 20 mg IVP STAT STA Stop: 11/17/16 18:05 Last Admin: 11/17/16 19:37 Dose: 20 mg Sodium Chloride (Sodium Chloride 0.9%) 1,000 mls @ 1,000 mls/hr IV .Q1H STA Stop: 11/17/16 19:03 Last Admin: 11/17/16 19:37 Dose: 1,000 mls/hr Iohexol (Omnipaque 350 100 Ml) Confirm Administered Dose 350 mg .ROUTE .[facility] Stop: 11/17/16 20:13 Ondansetron HCl (Zofran Inj) 4 mg IVP STAT STA Stop: 11/17/16 18:05 Last Admin: 11/17/16 19:37 Dose: 4 mg Disposition/Present on Arrival - Present on Arrival Any Indicators Present on Arrival: No History of DVT/PE: No History of Uncontrolled Diabetes: No Urinary Catheter: No History of Decub. Ulcer: No History Surgical Site Infection Following: None - Disposition Have Diagnosis and Disposition been Completed?: Yes Diagnosis: Abdominal pain Disposition: HOSPITALIZED Disposition Time: 22:06 Patient Plan: Observation Patient Problems: Current Active Problems Problem Status Onset Abdominal pain Acute Condition: FAIR
[2016-11-17 19:42] LABS: ALB/GLOB RATIO 1.5 (1.1-1.8); ALBUMIN 4.1 g/dL (3.0-4.8); ALT/SGPT 20 U/L (7-56); AST/SGOT 17 U/L (15-39); BLOOD UREA NITROGEN 10 mg/dL (7-21); CALCIUM 9.2 mg/dL (8.4-10.5); GFR AFRICAN-AMERICAN > 60; GFR NON-AFRICAN AMERICAN > 60; LIPASE 52 U/L (23-300)
[2016-11-17] MEDS ORDERED: Iohexol 350 MG/100 ML VIAL ONE (20:12)
--- NOTE | 2016-11-17 21:50 | CT ---
EXAM: CT Abdomen and Pelvis With Intravenous Contrast CLINICAL HISTORY: The patient age is 36 years old and is female; Pain; Abdominal pain; Generalized; Additional info: Abd pain R/O diverticulitis vs colitis Facility exam id and description: Ct abdpelciv abd pelvis iv contrast only TECHNIQUE: Axial computed tomography images of the abdomen and pelvis with intravenous contrast. This CT exam was performed using one or more of the following dose reduction techniques: automated exposure control, adjustment of the mA and/or kV according to patient size, and/or use of iterative reconstruction technique. Coronal and sagittal reformatted images were created and reviewed. CONTRAST: 97 mL of OMNI 350 administered intravenously. EXAM DATE/TIME: 11/17/2016 6:06 PM COMPARISON: CT - ABD PELVIS IV CONTRAST ONLY 08/23/2016 8:10:21 PM FINDINGS: Lower thorax: Patchy nonspecific groundglass density and atelectatic changes are identified at the bilateral lung bases. There is a small hiatal hernia. ABDOMEN: Liver: There is mild hypodense fat infiltration of the liver. The liver measures 22.5 cm in the craniocaudad dimension. Gallbladder and bile ducts: There is mild biliary dilatation. The common bile duct measures 9 mm in diameter. Surgical clips are identified within the gallbladder fossa, compatible with cholecystectomy. Pancreas: Normal contour, without acute peripancreatic stranding. Spleen: A few subcentimeter nodules are identified inferior to the spleen, suggestive of splenules. No splenomegaly. Adrenals: No mass. Kidneys and ureters: There is no hydronephrosis bilaterally. There is a tiny hypodense lesion within the left kidney, which is too small to characterize further. This is stable. Stomach and bowel: There is wall thickening of the duodenum, suggestive of duodenitis. There is no significant distention of the remaining small bowel. Moderate fecal material is visualized within the colon. Appendix: The appendix is absent. PELVIS: Bladder: No mass. Reproductive: The uterus is absent. ABDOMEN and PELVIS: Intraperitoneal space: No free air. There is mild stranding of the pelvic peritoneum, similar to the prior study. Bones/joints: There is mild levoscoliosis of the lower thoracic and lumbar spine. Vasculature: No abdominal aortic aneurysm. Lymph nodes: There is no significant retroperitoneal or intrapelvic lymphadenopathy. IMPRESSION: 1. There is mild hypodense fat infiltration of the liver. Hepatomegaly. 2. There is mild biliary dilatation. Correlation with serum bilirubin is recommended. 3. There is wall thickening of the duodenum, suggestive of duodenitis. 4. Incidental/non-acute findings are described above.
[2016-11-17] MEDS ORDERED: Albuterol-Ipratrop 3 mg / 0.5 (3 ml) UD IH PRN (23:11)
[2016-11-17] MEDS ORDERED: Sodium Chloride 0.9% 1,000 ML IV SCH (23:15)
[2016-11-17] MEDS ORDERED: DiphenhydrAMINE 50 mg/ml Inj IVP PRN (23:30)
[2016-11-17] MEDS: Divalproex 500 mg DR(BID formulation) PO SCH (23:49)
[2016-11-17] MEDS: Morphine 2 mg/ml ISec IVP PRN (23:50)
[2016-11-17] MEDS: DiphenhydrAMINE 50 mg/ml Inj IVP PRN (23:50)
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
[2016-11-18] MEDS ORDERED: Morphine 2 mg/ml ISec IVP STA (00:34)
--- NOTE | 2016-11-18 00:39 | CP.PCM.PN ---
Subjective - Date & Time of Evaluation Date of Evaluation: 11/18/16 Time of Evaluation: 00:38 - Subjective Subjective: # 24 angiocath was inserted in left volar wrist. Dx:Poor venous access. Objective - Vital Signs/Intake and Output Vital Signs (last 24 hours): Temp Pulse Resp BP Pulse Ox 66 14 96/57 L 99 11/17/16 22:25 11/17/16 22:25 11/17/16 22:25 11/17/16 22:25 - Medications Medications: Current Medications Albuterol/Ipratropium (Duoneb 3 Mg/0.5 Mg (3 Ml) Ud) 3 ml IH Q2H PRN PRN Reason: Shortness of Breath Arformoterol Tartrate (Brovana) 15 mcg IH 0800 [facility] Budesonide (Pulmicort Respules) 0.25 mg IH 0800 [facility] Diphenhydramine HCl (Benadryl) 25 mg IVP Q4H PRN PRN Reason: Allergy symptoms Last Admin: 11/17/16 23:50 Dose: 25 mg Divalproex Sodium (Depakote Dr(*Bid*)) 500 mg PO BID [facility] PRN Reason: Protocol Last Admin: 11/17/16 23:49 Dose: 500 mg Estrogens Conjugated (Premarin) 0.625 mg PO DAILY [facility] Sodium Chloride (Sodium Chloride 0.9%) 1,000 mls @ 100 mls/hr IV .Q10H [facility] Lamotrigine (Lamictal) 100 mg PO BID [facility] PRN Reason: Protocol Last Admin: 11/17/16 23:50 Dose: 100 mg Mirtazapine (Remeron) 30 mg PO HS [facility] Montelukast Sodium (Singulair) 10 mg PO HS [facility] Morphine Sulfate (Morphine) 2 mg IVP Q6H PRN PRN Reason: Pain, severe (8-10) Last Admin: 11/17/16 23:50 Dose: 2 mg Ondansetron HCl (Zofran Inj) 4 mg IVP Q6H PRN PRN Reason: Nausea/Vomiting Pantoprazole Sodium (Protonix Inj) 40 mg IVP DAILY [facility] Sertraline HCl (Zoloft) 50 mg PO HS [facility] - Labs Labs: PT 12.0 Seconds (9.9-11.8) H 11/17/16 19:19 INR 1.11 (0.93-1.08) H 11/17/16 19:19 APTT 30.3 Seconds (23.7-30.8) 11/17/16 19:19
[2016-11-18 01:20] VITALS: TEMP 97.8
[2016-11-18] MEDS: DiphenhydrAMINE 50 mg/ml Inj IVP PRN ×2 (06:39→11:46)
[2016-11-18] MEDS: Morphine 2 mg/ml ISec IVP PRN (06:39)
[2016-11-18] MEDS ORDERED: Budesonide 0.25 mg/2 ml Inhal Susp UD IH SCH (08:00)
[2016-11-18] MEDS ORDERED: Arformoterol 15 mcg/2 ml Inh Sol IH SCH (08:00)
[2016-11-18 08:09] LABS: ALB/GLOB RATIO 1.4 (1.1-1.8); ALBUMIN 3.9 g/dL (3.0-4.8); ALT/SGPT 18 U/L (7-56); AST/SGOT 17 U/L (15-39); BLOOD UREA NITROGEN 8 mg/dL (7-21); CALCIUM 8.9 mg/dL (8.4-10.5); GFR AFRICAN-AMERICAN > 60; GFR NON-AFRICAN AMERICAN > 60
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
[2016-11-18 08:13] LABS: HEMOGLOBIN 15.3 gm/dL (12.0-16.0); MEAN CORPUSCULAR HEMOGLOBIN 33.6 pg (25.0-35.0); MEAN CORPUSCULAR HGB CONC 35.3 g/dl (31.0-37.0); MEAN PLATELET VOLUME 12.7 fl (7.0-11.0); RBC 4.56 10^6/uL (3.5-6.1); RED CELL DISTRIBUTION WIDTH 12.3 % (11.5-14.5); WHITE BLOOD COUNT 7.9 10^3/ul (4.5-11.0)
[2016-11-18 08:29] VITALS: BP 127/67; PULSE 66; RESP 20; O2SAT 100
[2016-11-18] MEDS ORDERED: Fluticasone-Salmeterol 100-50mcg Diskus IH SCH (10:00)
[2016-11-18] MEDS: Divalproex 500 mg DR(BID formulation) PO SCH (10:00)
[2016-11-18] MEDS ORDERED: cefTRIAXone 1 gm 1 GM/100 ML BAG IVPB SCH (10:15)
--- NOTE | 2016-11-18 11:07 | CARD ---
APPROVED REPORT EKG Measurement Heart [id number] <Conclusion> Normal sinus rhythm Normal ECG
--- NOTE | 2016-11-18 18:04 | CP.PCM.DIS ---
<Lakesha Waddell - Last Filed: 11/18/16 18:15> Provider - Provider Date of Admission: 11/17/16 22:02 Attending physician: Alva Nguyen MD Consults: JOHN Herring Time Spent in preparation of Discharge (in minutes): 35 Hospital Course - Lab Results Lab Results: Most Recent Lab Values WBC 7.9 10^3/ul (4.5-11.0) 11/18/16 07:50 RBC 4.56 10^6/uL (3.5-6.1) 11/18/16 07:50 Hgb 15.3 gm/dL (12.0-16.0) 11/18/16 07:50 Hct 43.3 % (36.0-48.0) 11/18/16 07:50 MCV 95.0 fL (80.0-105.0) 11/18/16 07:50 MCH 33.6 pg (25.0-35.0) 11/18/16 07:50 MCHC 35.3 g/dl (31.0-37.0) 11/18/16 07:50 RDW 12.3 % (11.5-14.5) 11/18/16 07:50 Plt Count 197 10^3/uL (120.0-450.0) 11/18/16 07:50 MPV 12.7 fl (7.0-11.0) H 11/18/16 07:50 Gran % 50.0 % (50.0-68.0) 11/17/16 19:19 Lymph % (Auto) 38.1 % (22.0-35.0) H 11/17/16 19:19 Band[place] % (Auto) 8.3 % (1.0-6.0) H 11/17/16 19:19 Eos % (Auto) 3.2 % (1.5-5.0) 11/17/16 19:19 Baso % (Auto) 0.4 % (0.0-3.0) 11/17/16 19:19 Gran # 4.19 (1.4-6.5) 11/17/16 19:19 Lymph # 3.2 (1.2-3.4) 11/17/16 19:19 Bandera # 0.7 (0.1-0.6) H 11/17/16 19:19 Eos # 0.3 (0.0-0.7) 11/17/16 19:19 Baso # 0.03 K/mm3 (0.0-2.0) 11/17/16 19:19 PT 12.0 Seconds (9.9-11.8) H 11/17/16 19:19 INR 1.11 (0.93-1.08) H 11/17/16 19:19 APTT 30.3 Seconds (23.7-30.8) 11/17/16 19:19 Sodium 143 mmol/L (132-148) 11/18/16 07:50 Potassium 4.0 mmol/L (3.6-5.0) 11/18/16 07:50 Chloride 108 mmol/L (95-110) 11/18/16 07:50 Carbon Dioxide 26 mmol/L (21-33) 11/18/16 07:50 Anion Gap 13 (10-20) 11/18/16 07:50 BUN 8 mg/dL (7-21) 11/18/16 07:50 Creatinine 0.6 mg/dL (0.5-1.4) 11/18/16 07:50 Est GFR ( Amer) > 60 11/18/16 07:50 Est GFR (Non-Af Amer) > 60 11/18/16 07:50 Random Glucose 82 mg/dL (70-110) 11/18/16 07:50 Calcium 8.9 mg/dL (8.4-10.5) 11/18/16 07:50 Phosphorus 4.4 mg/dL (2.5-4.5) 11/18/16 07:50 Magnesium 2.0 mg/dL (1.7-2.2) 11/18/16 07:50 Total Bilirubin 0.3 mg/dL (0.2-1.3) 11/18/16 07:50 AST 17 U/L (15-39) 11/18/16 07:50 ALT 18 U/L (7-56) 11/18/16 07:50 Alkaline Phosphatase 82 U/L (38-133) 11/18/16 07:50 Troponin I < 0.01 ng/mL 11/18/16 00:20 Total Protein 6.6 g/dL (5.8-8.3) 11/18/16 07:50 Albumin 3.9 g/dL (3.0-4.8) 11/18/16 07:50 Globulin 2.7 gm/dL 11/18/16 07:50 Albumin/Globulin Ratio 1.4 (1.1-1.8) 11/18/16 07:50 Lipase 52 U/L (23-300) 11/17/16 19:19 Urine Color Yellow (YELLOW) 11/17/16 18:44 Urine Appearance Clear (CLEAR) 11/17/16 18:44 Urine pH 7.5 (4.7-8.0) 11/17/16 18:44 Ur Specific [place] 1.015 (1.005-1.035) 11/17/16 18:44 Urine Protein Negative mg/dL (<30 mg/dL) 11/17/16 18:44 Urine Glucose (UA) Negative mg/dL (NEGATIVE) 11/17/16 18:44 Urine Ketones Negative mg/dL (NEGATIVE) 11/17/16 18:44 Urine Blood Small (NEGATIVE) H 11/17/16 18:44 Urine Nitrate Negative (NEGATIVE) 11/17/16 18:44 Urine Bilirubin Negative (NEGATIVE) 11/17/16 18:44 Urine Urobilinogen 0.2 E.U./dL (<1 E.U./dL) 11/17/16 18:44 Ur Leukocyte Esterase Negative Maria Alejandra/uL (NEGATIVE) 11/17/16 18:44 Urine RBC 0 - 2 /hpf (0-2) 11/17/16 18:44 Urine WBC 0 - 2 /hpf (0-6) 11/17/16 18:44 Ur Epithelial Cells 4 - 5 /hpf (0-5) 11/17/16 18:44 Urine Bacteria Trace (NEG) 11/17/16 18:44 - Hospital Course Hospital Course: Patient is a 36yo female with PMHx significant for numerous admissions for chronic abdominal pain, IBS-M, endometriosis, anxiety/depression, cholecystectomy and drug seeking behavior who was admitted for abdominal pain. CT Abd/Pelvis showed dilated duodenum with wall thickening suggestive of duodenitis; mild hypopdence fat infiltration of liver w/ Hepatomegaly; mild biliary dilatation. GI consulted on the case. They recommended PPI therapy and NSAID avoidance to her. EKG was normal. UA was negative. We started with supportive therapy, and the plan was to slowly advance diet. Patient began to get vocally aggressive after Morphine was D/C. She signed out AMA. Patient seen, examined, and discussed with attending Lakesha Waddell PGY1 - Date & Time of H&P Date of H&P: 11/18/16 Time of H&P: 18:18 Discharge Exam - Head Exam Head Exam: ATRAUMATIC, NORMOCEPHALIC - Eye Exam Eye Exam: EOMI - ENT Exam ENT Exam: Mucous Membranes Moist - Respiratory Exam Respiratory Exam: Clear to PA & Lateral. absent: Rales, Rhonchi, Wheezes, Stridor - Cardiovascular Exam Cardiovascular Exam: RRR, +S1, +S2. absent: JVD - GI/Abdominal Exam GI & Abdominal Exam: Normal Bowel Sounds, Soft, Tenderness. absent: Distended, Firm - Extremities Exam Additional comments: no pedal edema - Back Exam Back exam: absent: CVA tenderness (L), CVA tenderness (R) - Neurological Exam Neurological exam: Alert, Oriented x3 - Psychiatric Exam Psychiatric exam: Agitated, Anxious - Skin Skin Exam: Dry, Intact, Normal Color, Warm Discharge Plan - Follow Up Plan Condition: FAIR Disposition: AGAINST MEDICAL ADVICE <Alva Nguyen - Last Filed: 11/19/16 15:55> Provider - Provider Date of Admission: 11/17/16 22:02 Attending physician: Alva Nguyen MD Hospital Course - Lab Results Lab Results: Most Recent Lab Values WBC 7.9 10^3/ul (4.5-11.0) 11/18/16 07:50 RBC 4.56 10^6/uL (3.5-6.1) 11/18/16 07:50 Hgb 15.3 gm/dL (12.0-16.0) 11/18/16 07:50 Hct 43.3 % (36.0-48.0) 11/18/16 07:50 MCV 95.0 fL (80.0-105.0) 11/18/16 07:50 MCH 33.6 pg (25.0-35.0) 11/18/16 07:50 MCHC 35.3 g/dl (31.0-37.0) 11/18/16 07:50 RDW 12.3 % (11.5-14.5) 11/18/16 07:50 Plt Count 197 10^3/uL (120.0-450.0) 11/18/16 07:50 MPV 12.7 fl (7.0-11.0) H 11/18/16 07:50 Gran % 50.0 % (50.0-68.0) 11/17/16 19:19 Lymph % (Auto) 38.1 % (22.0-35.0) H 11/17/16 19:19 Bandera % (Auto) 8.3 % (1.0-6.0) H 11/17/16 19:19 Eos % (Auto) 3.2 % (1.5-5.0) 11/17/16 19:19 Baso % (Auto) 0.4 % (0.0-3.0) 11/17/16 19:19 Gran # 4.19 (1.4-6.5) 11/17/16 19:19 Lymph # 3.2 (1.2-3.4) 11/17/16 19:19 [place]era # 0.7 (0.1-0.6) H 11/17/16 19:19 Eos # 0.3 (0.0-0.7) 11/17/16 19:19 Baso # 0.03 K/mm3 (0.0-2.0) 11/17/16 19:19 PT 12.0 Seconds (9.9-11.8) H 11/17/16 19:19 INR 1.11 (0.93-1.08) H 11/17/16 19:19 APTT 30.3 Seconds (23.7-30.8) 11/17/16 19:19 Sodium 143 mmol/L (132-148) 11/18/16 07:50 Potassium 4.0 mmol/L (3.6-5.0) 11/18/16 07:50 Chloride 108 mmol/L (95-110) 11/18/16 07:50 Carbon Dioxide 26 mmol/L (21-33) 11/18/16 07:50 Anion Gap 13 (10-20) 11/18/16 07:50 BUN 8 mg/dL (7-21) 11/18/16 07:50 Creatinine 0.6 mg/dL (0.5-1.4) 11/18/16 07:50 Est GFR ( Amer) > 60 11/18/16 07:50 Est GFR (Non-Af Amer) > 60 11/18/16 07:50 Random Glucose 82 mg/dL (70-110) 11/18/16 07:50 Calcium 8.9 mg/dL (8.4-10.5) 11/18/16 07:50 Phosphorus 4.4 mg/dL (2.5-4.5) 11/18/16 07:50 Magnesium 2.0 mg/dL (1.7-2.2) 11/18/16 07:50 Total Bilirubin 0.3 mg/dL (0.2-1.3) 11/18/16 07:50 AST 17 U/L (15-39) 11/18/16 07:50 ALT 18 U/L (7-56) 11/18/16 07:50 Alkaline Phosphatase 82 U/L (38-133) 11/18/16 07:50 Troponin I < 0.01 ng/mL 11/18/16 00:20 Total Protein 6.6 g/dL (5.8-8.3) 11/18/16 07:50 Albumin 3.9 g/dL (3.0-4.8) 11/18/16 07:50 Globulin 2.7 gm/dL 11/18/16 07:50 Albumin/Globulin Ratio 1.4 (1.1-1.8) 11/18/16 07:50 Lipase 52 U/L (23-300) 11/17/16 19:19 Urine Color Yellow (YELLOW) 11/17/16 18:44 Urine Appearance Clear (CLEAR) 11/17/16 18:44 Urine pH 7.5 (4.7-8.0) 11/17/16 18:44 Ur Specific [place] 1.015 (1.005-1.035) 11/17/16 18:44 Urine Protein Negative mg/dL (<30 mg/dL) 11/17/16 18:44 Urine Glucose (UA) Negative mg/dL (NEGATIVE) 11/17/16 18:44 Urine Ketones Negative mg/dL (NEGATIVE) 11/17/16 18:44 Urine Blood Small (NEGATIVE) H 11/17/16 18:44 Urine Nitrate Negative (NEGATIVE) 11/17/16 18:44 Urine Bilirubin Negative (NEGATIVE) 11/17/16 18:44 Urine Urobilinogen 0.2 E.U./dL (<1 E.U./dL) 11/17/16 18:44 Ur Leukocyte Esterase Negative Maria Alejandra/uL (NEGATIVE) 11/17/16 18:44 Urine RBC 0 - 2 /hpf (0-2) 11/17/16 18:44 Urine WBC 0 - 2 /hpf (0-6) 11/17/16 18:44 Ur Epithelial Cells 4 - 5 /hpf (0-5) 11/17/16 18:44 Urine Bacteria Trace (NEG) 11/17/16 18:44 Attending/Attestation - Attestation I have personally seen and examined this patient.: Yes I have fully participated in the care of the patient.: Yes I have reviewed all pertinent clinical information, including history, physical exam and plan: Yes Notes (Text): 11/19/16 15:52 attending note; Patient seen and examined with resident. Patient is a 36yo female with PMHx significant for numerous admissions for chronic abdominal pain, IBS-M, endometriosis, anxiety/depression, cholecystectomy and drug seeking behavior who was admitted for abdominal pain. Patient has chronic opiate seeking behavior.CT abdomen and pelvis did not show any acute changes. GI evaluation appreciated. Suggested to avoid narcotics. Morphine discontinued. Patient was requesting IV pain medication. Abdomen is soft. No rigidity or guarding. Patient got upset after we stopped IV morphine and left against medical advice. Diagnosis; Chronic abdominal pain Opiate seeking behavior anxiety depression 11/19/16 15:53
== END 2016-11-18 18:02 | disposition left against medical advice (07) ==
LOC: ED 17:38 → ERH 22:02 → 3RNO 23:05
PROVIDERS: ADMIT Internal Medicine; ATTEND Internal Medicine
DX: R10.31 Right lower quadrant pain (principal); R10.32 Left lower quadrant pain; R10.2 Pelvic and perineal pain; K21.9 Gastro-esophageal reflux disease without esophagitis; F32.9 Major depressive disorder, single episode, unspecified; J44.9 Chronic obstructive pulmonary disease, unspecified; G40.909 Epilepsy, unspecified, not intractable, without status epilepticus; F17.200 Nicotine dependence, unspecified, uncomplicated; K58.0 Irritable bowel syndrome with diarrhea; F41.9 Anxiety disorder, unspecified; K64.9 Unspecified hemorrhoids; G43.909 Migraine, unspecified, not intractable, without status migrainosus; D64.9 Anemia, unspecified; F43.10 Post-traumatic stress disorder, unspecified; R11.2 Nausea with vomiting, unspecified; Z88.0 Allergy status to penicillin; Z88.2 Allergy status to sulfonamides; Z91.040 Latex allergy status; Z76.5 Malingerer [conscious simulation]
CPT/HCPCS: 36415; 74177; 80053; 81001; 83690; 83735; 84100; 84484; 85025; 85027; 85610; 85730; 87086; 87491; 87591; 93005; 94640; 94760; 96374; 99284; C9113; G0378; J1200; J2270; J2405; J7040; Q9967

== ENCOUNTER 2017-03-11 09:26 | Emergency (ER) | payer MEDICAID ==
[2017-03-11 09:27] VITALS: BMI 25.6
[2017-03-11 10:18] VITALS: RESP 18; TEMP 98; O2SAT 96
[2017-03-11] MEDS ORDERED: Sodium Chloride 0.9% 1,000 ML IV STA (10:23)
[2017-03-11] MEDS ORDERED: Morphine 4 mg/ml ISec IVP STA (10:23)
[2017-03-11 10:36] LABS: BASO # 0.04 K/mm3 (0.0-2.0); BASO % 0.4 % (0.0-3.0); EOS # 0.2 (0.0-0.7); EOS % 2.3 % (1.5-5.0); GRAN # 6.29 (1.4-6.5); GRAN % 67.7 % (50.0-68.0); HEMATOCRIT 41.9 % (36.0-48.0); LYMPH # 2.1 (1.2-3.4); LYMPH % 22.4 % (22.0-35.0); MEAN CELL VOLUME 96.3 fl (80.0-105.0); MEAN CORPUSCULAR HEMOGLOBIN 33.6 pg (25.0-35.0); MEAN CORPUSCULAR HGB CONC 34.8 g/dl (31.0-37.0); MEAN PLATELET VOLUME 12.3 fl (7.0-11.0); MONO # 0.7 (0.1-0.6); MONO % 7.2 % (1.0-6.0); RED CELL DISTRIBUTION WIDTH 12.3 % (11.5-14.5); WHITE BLOOD COUNT 9.3 10^3/ul (4.5-11.0)
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
[2017-03-11] MEDS ORDERED: DiphenhydrAMINE 50 mg/ml Inj IVP STA (10:48)
[2017-03-11 11:02] LABS: URINE APPEARANCE CLEAR (CLEAR); URINE BILIRUBIN NEGATIVE (NEGATIVE); URINE BLOOD TRACE-LYSED (NEGATIVE); URINE COLOR YELLOW (YELLOW); URINE GLUCOSE (UA) NEGATIVE (NEGATIVE); URINE KETONE NEGATIVE (NEGATIVE); URINE LEUKOCYTE ESTERASE NEGATIVE Leu/uL (NEGATIVE); URINE PROTEIN NEGATIVE mg/dL (<30 mg/dL); URINE UROBILINOGEN 0.2 E.U./dL (<1 E.U./dL)
[2017-03-11 11:10] LABS: URINE BACTERIA TRACE (NEG); URINE RBC NEGATIVE /hpf (0-2); URINE WBC NEGATIVE /hpf (0-6)
[2017-03-11 11:38] LABS: ALB/GLOB RATIO 1.3 (1.1-1.8); ALKALINE PHOSPHATASE 91 U/L (38-126); ALT/SGPT 53 U/L (7-56); AST/SGOT 31 U/L (14-36); BILIRUBIN,TOTAL 0.4 mg/dL (0.2-1.3); BLOOD UREA NITROGEN 16 mg/dL (7-21); CALCIUM 9.7 mg/dL (8.4-10.5); CARBON DIOXIDE 21 mmol/L (21-33); CHLORIDE 111 mmol/L (98-107); GFR AFRICAN-AMERICAN > 60; GLUCOSE,RANDOM 104 mg/dL (70-110); LIPASE 56 U/L (23-300); TOTAL PROTEIN 7.4 g/dL (5.8-8.3)
[2017-03-11 11:50] LABS: POTASSIUM 4.2 mmol/L (3.6-5.0); SODIUM 141 mmol/L (132-148)
[2017-03-11] MEDS ORDERED: Iohexol 350 MG/100 ML VIAL ONE (12:54)
--- NOTE | 2017-03-11 13:22 | CT ---
PROCEDURE: CT HEAD WITHOUT CONTRAST. HISTORY: seizure and fall? COMPARISON: 06/22/2016 TECHNIQUE: Axial computed tomography images were obtained through the head/brain without intravenous contrast. Radiation dose: Total exam DLP = 629 mGy-cm. This CT exam was performed using one or more of the following dose reduction techniques: Automated exposure control, adjustment of the mA and/or kV according to patient size, and/or use of iterative reconstruction technique. FINDINGS: HEMORRHAGE: No intracranial hemorrhage. BRAIN: No mass effect or edema. No atrophy or chronic microvascular ischemic changes. VENTRICLES: Unremarkable. No hydrocephalus. CALVARIUM: Unremarkable. PARANASAL SINUSES: There is mucosal thickening in the left side of the sphenoid sinus MASTOID AIR CELLS: Unremarkable as visualized. No inflammatory changes. OTHER FINDINGS: None. IMPRESSION: No acute findings
--- NOTE | 2017-03-11 13:37 | CT ---
PROCEDURE: CT Abdomen and Pelvis without intravenous contrast HISTORY: diarrhea/abdominal pain COMPARISON: 11/17/2016 TECHNIQUE: Without contrast. Contrast Dose: Radiation dose: Total exam DLP = 406 mGy-cm. This CT exam was performed using one or more of the following dose reduction techniques: Automated exposure control, adjustment of the mA and/or kV according to patient size, and/or use of iterative reconstruction technique. FINDINGS: LOWER THORAX: Unremarkable. LIVER: Unremarkable. No gross lesion or ductal dilatation. GALLBLADDER AND BILE DUCTS: Gallbladder removed. The common duct is mildly dilated measuring 9 mm. This is within normal limits following cholecystectomy. There are no distal stones visualized. PANCREAS: Unremarkable. No gross lesion or ductal dilatation. SPLEEN: Unremarkable. ADRENALS: Unremarkable. No mass. KIDNEYS AND URETERS: Unremarkable. No hydronephrosis. No solid mass. 2 mm nonobstructing stone in the lower pole of the left kidney VASCULATURE: Unremarkable. No aortic aneurysm. BOWEL: Unremarkable. No obstruction. No gross mural thickening. The study is limited without oral contrast material. APPENDIX: Unremarkable. Normal appendix. PERITONEUM: Unremarkable. No free fluid. No free air. LYMPH NODES: Unremarkable. No enlarged lymph nodes. BLADDER: Unremarkable. REPRODUCTIVE: Unremarkable. BONES: No acute fracture. OTHER FINDINGS: None. IMPRESSION: No acute findings
--- NOTE | 2017-03-11 14:21 | RAD ---
PROCEDURE: CHEST RADIOGRAPH, 1 VIEW HISTORY: medical clearance COMPARISON: 05/12/2016. FINDINGS: LUNGS: Clear. PLEURA: No pneumothorax or pleural fluid seen. CARDIOVASCULAR: Normal. OSSEOUS STRUCTURES: No significant abnormalities. VISUALIZED UPPER ABDOMEN: Normal. OTHER FINDINGS: None. IMPRESSION: No active disease. No acute/significant interval changes. Concordant results with the preliminary interpretation rendered by the emergency department physician procedure.
[2017-03-11 15:36] VITALS: BP 109/52; PULSE 68
[2017-03-11] MEDS ORDERED: Albuterol HFA 90 mcg/actuation (8 g) IH PRN (15:57)
[2017-03-11] MEDS ORDERED: CHOLECALCIFEROL 50000 UNIT PO SCH (16:00)
[2017-03-11] MEDS ORDERED: Sodium Chloride 0.9% 1,000 ML IV SCH (16:00)
[2017-03-11] MEDS ORDERED: Albuterol 0.083% Inhal Sol (2.5 mg/3 mL) UD IH PRN (16:02)
[2017-03-11] MEDS ORDERED: Ergocalciferol 50,000 Intl Units Cap PO SCH (16:30)
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
[2017-03-11] MEDS ORDERED: Divalproex 500 mg ER (ONCE DAILY formulation) PO SCH (18:00)
--- NOTE | 2017-03-11 23:05 | CARD ---
APPROVED REPORT EKG Measurement Heart [id number] <Conclusion> Normal sinus rhythm Normal ECG
[2017-03-12] MEDS ORDERED: Fluticasone-Salmeterol 100-50mcg Diskus IH SCH (10:00)
[2017-03-12] MEDS ORDERED: Arformoterol 15 mcg/2 ml Inh Sol IH SCH (10:00)
[2017-03-12] MEDS ORDERED: Budesonide 0.25 mg/2 ml Inhal Susp UD IH SCH (10:00)
== END 2017-03-11 16:41 | disposition left against medical advice (07) ==
LOC: ED 09:26 → UNDOADMOB 14:50 → ERH 14:50
DX: R11.10 Vomiting, unspecified (principal); R10.32 Left lower quadrant pain
CPT/HCPCS: 70450; 71010; 74176; 80053; 80324; 80345; 80346; 80349; 80353; 80358; 80361; 81001; 83690; 83992; 85025; 93005; 96374; 96375; 99285; J1200; J2270; J2405; J2765; J7040

== ENCOUNTER 2017-04-19 09:21 | Emergency (ER) | payer MEDICAID ==
[2017-04-19 09:22] VITALS: BMI 25.6
[2017-04-19] MEDS ORDERED: Morphine 4 mg/ml ISec IVP STA (09:49)
[2017-04-19] MEDS ORDERED: Sodium Chloride 0.9% 1,000 ML IV STA (09:49)
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
[2017-04-19] MEDS ORDERED: Iohexol 240 (50 ml) ONE (10:07)
[2017-04-19 10:46] LABS: BASO # 0.02 K/mm3 (0.0-2.0); BASO % 0.2 % (0.0-3.0); EOS # 0.2 (0.0-0.7); EOS % 1.5 % (1.5-5.0); GRAN # 7.36 (1.4-6.5); GRAN % 68.5 % (50.0-68.0); HEMATOCRIT 41.1 % (36.0-48.0); LYMPH # 2.4 (1.2-3.4); LYMPH % 22.4 % (22.0-35.0); MEAN CELL VOLUME 96.7 fl (80.0-105.0); MEAN CORPUSCULAR HEMOGLOBIN 32.7 pg (25.0-35.0); MEAN CORPUSCULAR HGB CONC 33.8 g/dl (31.0-37.0); MEAN PLATELET VOLUME 12.3 fl (7.0-11.0); MONO # 0.8 (0.1-0.6); MONO % 7.4 % (1.0-6.0); RED CELL DISTRIBUTION WIDTH 12.4 % (11.5-14.5); WHITE BLOOD COUNT 10.7 10^3/ul (4.5-11.0)
[2017-04-19 12:27] VITALS: RESP 16
[2017-04-19 12:32] VITALS: TEMP 98
[2017-04-19 12:32] LABS: ALB/GLOB RATIO 1.5 (1.1-1.8); ALKALINE PHOSPHATASE 84 U/L (38-126); ALT/SGPT 19 U/L (7-56); AST/SGOT 17 U/L (14-36); BILIRUBIN,TOTAL 0.3 mg/dL (0.2-1.3); BLOOD UREA NITROGEN 13 mg/dL (7-21); CALCIUM 9.8 mg/dL (8.4-10.5); CARBON DIOXIDE 25 mmol/L (21-33); CHLORIDE 108 mmol/L (98-107); GFR AFRICAN-AMERICAN > 60; GLUCOSE,RANDOM 98 mg/dL (70-110); LIPASE 55 U/L (23-300); POTASSIUM 4.8 mmol/L (3.6-5.0); SODIUM 143 mmol/L (132-148); TOTAL PROTEIN 7.3 g/dL (5.8-8.3)
[2017-04-19 12:40] LABS: URINE BILIRUBIN NEGATIVE (NEGATIVE); URINE BLOOD TRACE-INTACT (NEGATIVE); URINE GLUCOSE (UA) NEGATIVE (NEGATIVE); URINE KETONE NEGATIVE (NEGATIVE); URINE LEUKOCYTE ESTERASE NEGATIVE Leu/uL (NEGATIVE); URINE PROTEIN NEGATIVE mg/dL (<30 mg/dL); URINE UROBILINOGEN 0.2 E.U./dL (<1 E.U./dL)
[2017-04-19 12:42] LABS: URINE APPEARANCE CLEAR (CLEAR); URINE COLOR YELLOW (YELLOW)
[2017-04-19 13:04] LABS: URINE BACTERIA MOD (NEG); URINE WBC 0 - 2 /hpf (0-6)
[2017-04-19] MEDS ORDERED: Iohexol 350 MG/100 ML VIAL ONE (13:46)
--- NOTE | 2017-04-19 15:00 | CT ---
PROCEDURE: CT Abdomen and Pelvis with contrast HISTORY: abd pain COMPARISON: 03/11/2017 TECHNIQUE: Contrast dose: 100 cc Omnipaque 350 Radiation dose: Total exam DLP = 395.53 mGy-cm. This CT exam was performed using one or more of the following dose reduction techniques: Automated exposure control, adjustment of the mA and/or kV according to patient size, and/or use of iterative reconstruction technique. FINDINGS: LOWER THORAX: Unremarkable. LIVER: Unremarkable. No gross lesion or ductal dilatation. GALLBLADDER AND BILE DUCTS: Status post cholecystectomy. No abnormality is seen in the gallbladder fossa. PANCREAS: Unremarkable. No gross lesion or ductal dilatation. SPLEEN: Unremarkable. ADRENALS: Unremarkable. No mass. KIDNEYS AND URETERS: Unremarkable. No hydronephrosis. No solid mass. VASCULATURE: Unremarkable. No aortic aneurysm. BOWEL: Unremarkable. No obstruction. No gross mural thickening. Diverticulosis without an acute inflammatory component or other associated pathologic process. APPENDIX: Surgical clips of the base of the cecum from prior appendectomy with PERITONEUM: Unremarkable. No free fluid. No free air. LYMPH NODES: Unremarkable. No enlarged lymph nodes. BLADDER: Unremarkable. REPRODUCTIVE: Prior hysterectomy BONES: No acute fracture. OTHER FINDINGS: None. IMPRESSION: No acute findings related to/accounting for the clinical presentation. No significant interval change compared to the prior examination(s). Additional benign and/or incidental findings described above.
[2017-04-19 15:18] VITALS: BP 122/66; PULSE 74; O2SAT 97
== END 2017-04-19 17:29 | disposition home or self-care (01) ==
LOC: ED 09:21
DX: R10.30 Lower abdominal pain, unspecified (principal); R11.0 Nausea; F17.210 Nicotine dependence, cigarettes, uncomplicated; J44.9 Chronic obstructive pulmonary disease, unspecified; G40.909 Epilepsy, unspecified, not intractable, without status epilepticus; Z88.0 Allergy status to penicillin; Z88.2 Allergy status to sulfonamides
CPT/HCPCS: 74177; 80053; 81001; 83690; 85025; 87040; 87086; 96374; 96375; 96376; 99284; J2270; J2405; J7040; Q9966; Q9967

== ENCOUNTER 2017-06-22 11:00 | Observation (INO) | payer MEDICAID ==
[2017-06-22 11:07] VITALS: BMI 24.0
[2017-06-22] MEDS ORDERED: Sodium Chloride 0.9% 1,000 ML IV STA (11:21)
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
[2017-06-22 12:30] LABS: URINE BILIRUBIN NEGATIVE (NEGATIVE); URINE BLOOD SMALL (NEGATIVE); URINE GLUCOSE (UA) NEGATIVE (NEGATIVE); URINE LEUKOCYTE ESTERASE NEGATIVE Leu/uL (NEGATIVE); URINE NITRATE NEGATIVE (NEGATIVE); URINE PROTEIN NEGATIVE mg/dL (<30 mg/dL); URINE UROBILINOGEN 0.2 E.U./dL (<1 E.U./dL)
[2017-06-22 12:31] LABS: URINE APPEARANCE CLEAR (CLEAR); URINE COLOR LIGHT YELLOW (YELLOW)
[2017-06-22 12:37] LABS: URINE EPITHELIAL CELLS 0 - 2 /hpf (0-5); URINE RBC 0 - 2 /hpf (0-2); URINE WBC NEGATIVE /hpf (0-6)
[2017-06-22 13:57] LABS: BASO # 0.03 K/mm3 (0.0-2.0); BASO % 0.2 % (0.0-3.0); EOS # 0.2 (0.0-0.7); EOS % 1.4 % (1.5-5.0); GRAN # 8.13 (1.4-6.5); HEMOGLOBIN 13.8 g/dL (12.0-16.0); LYMPH % 30.4 % (22.0-35.0); MEAN CELL VOLUME 98.1 fl (80.0-105.0); MEAN CORPUSCULAR HGB CONC 33.7 g/dl (31.0-37.0); MEAN PLATELET VOLUME 11.8 fl (7.0-11.0); MONO # 0.9 (0.1-0.6); RBC 4.18 10^6/uL (3.5-6.1); RED CELL DISTRIBUTION WIDTH 12.4 % (11.5-14.5); WHITE BLOOD COUNT 13.3 10^3/ul (4.5-11.0)
[2017-06-22] MEDS ORDERED: Morphine 4 mg/ml ISec IM STA (14:01)
[2017-06-22 14:05] LABS: INR 1.02 (0.93-1.08); PARTIAL THROMBOPLASTIN TIME 32.6 Seconds (25.1-36.5); PROTHROMBIN TIME 11.7 SECONDS (9.4-12.5)
[2017-06-22 14:07] LABS: ALB/GLOB RATIO 1.4 (1.1-1.8); ALBUMIN 4.2 g/dL (3.0-4.8); ALT/SGPT 15 U/L (7-56); AST/SGOT 18 U/L (14-36); BLOOD UREA NITROGEN 13 mg/dL (7-21); CALCIUM 9.8 mg/dL (8.4-10.5); GFR AFRICAN-AMERICAN > 60; GFR NON-AFRICAN AMERICAN > 60; LIPASE 71 U/L (23-300)
--- NOTE | 2017-06-22 14:32 | CT ---
PROCEDURE: CT Abdomen and Pelvis without intravenous contrast HISTORY: 37yoF, abdomen pain/discomfort COMPARISON: None. TECHNIQUE: Without contrast.. Contrast Dose: Radiation dose: Total exam DLP = 426 mGy-cm. This CT exam was performed using one or more of the following dose reduction techniques: Automated exposure control, adjustment of the mA and/or kV according to patient size, and/or use of iterative reconstruction technique. FINDINGS: LOWER THORAX: Unremarkable. LIVER: Unremarkable. No gross lesion or ductal dilatation. GALLBLADDER AND BILE DUCTS: Gallbladder removed PANCREAS: Unremarkable. No gross lesion or ductal dilatation. SPLEEN: Unremarkable. ADRENALS: Unremarkable. No mass. KIDNEYS AND URETERS: Unremarkable. No hydronephrosis. No solid mass. VASCULATURE: Unremarkable. No aortic aneurysm. BOWEL: Unremarkable. No obstruction. No gross mural thickening. APPENDIX: Unremarkable. Normal appendix. PERITONEUM: Unremarkable. No free fluid. No free air. LYMPH NODES: Unremarkable. No enlarged lymph nodes. BLADDER: Unremarkable. REPRODUCTIVE: Unremarkable. BONES: No acute fracture. OTHER FINDINGS: None. IMPRESSION: No acute intra-abdominal findings
[2017-06-22 14:35] LABS: BARBITURATES, UR NEGATIVE (NEGATIVE); BENZODIAZEPINES, UR NEGATIVE (NEGATIVE); OPIATES, UR NEGATIVE (NEGATIVE); PHENCYCLIDINE, UR NEGATIVE (NEGATIVE)
[2017-06-22] MEDS ORDERED: Lactated Ringer's 1,000 ML IV SCH (15:00)
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
[2017-06-22] MEDS ORDERED: Albuterol HFA 90 mcg/actuation (8 g) IH PRN (15:52)
[2017-06-22] MEDS ORDERED: Non Formulary Medication (Ranitidine Hcl [Zantac] 150 MG) PO PRN (15:52)
[2017-06-22] MEDS ORDERED: Sodium Chloride 0.9% 1,000 ML IV SCH (16:00)
[2017-06-22] MEDS ORDERED: CHOLECALCIFEROL 50000 UNIT PO SCH (16:00)
[2017-06-22] MEDS ORDERED: BUTALBITAL PO SCH (18:00)
[2017-06-22] MEDS ORDERED: Albuterol-Ipratrop 3 mg / 0.5 (3 ml) UD IH PRN (18:17)
[2017-06-22] MEDS ORDERED: Ergocalciferol 50,000 Intl Units Cap PO SCH (18:30)
[2017-06-22] MEDS: Albuterol-Ipratrop 3 mg / 0.5 (3 ml) UD IH SCH (21:24)
[2017-06-22] MEDS ORDERED: Apap-Butalbital-Caffeine 325-50-40mg Tab PO PRN (21:26)
[2017-06-22] MEDS ORDERED: Divalproex 250 mg ER (ONCE DAILY formulation) PO ONE (21:45)
[2017-06-23] MEDS: Albuterol-Ipratrop 3 mg / 0.5 (3 ml) UD IH SCH ×3 (02:33→13:14)
[2017-06-23 03:36] VITALS: RESP 20
[2017-06-23] MEDS ORDERED: Pantoprazole 40 mg EC Tab PO SCH (06:00)
[2017-06-23 07:39] VITALS: BP 101/52; PULSE 73; TEMP 97.4; O2SAT 95
[2017-06-23 09:13] LABS: BASO # 0.02 K/mm3 (0.0-2.0); BASO % 0.3 % (0.0-3.0); EOS # 0.2 (0.0-0.7); EOS % 3.3 % (1.5-5.0); GRAN # 3.3 (1.4-6.5); GRAN % 49.4 % (50.0-68.0); HEMOGLOBIN 14.2 g/dL (12.0-16.0); LYMPH # 2.6 (1.2-3.4); LYMPH % 38.2 % (22.0-35.0); MEAN CELL VOLUME 98.6 fl (80.0-105.0); MEAN CORPUSCULAR HEMOGLOBIN 33.3 pg (25.0-35.0); MEAN CORPUSCULAR HGB CONC 33.7 g/dl (31.0-37.0); MEAN PLATELET VOLUME 11.6 fl (7.0-11.0); MONO # 0.6 (0.1-0.6); MONO % 8.8 % (1.0-6.0); RBC 4.27 10^6/uL (3.5-6.1); RED CELL DISTRIBUTION WIDTH 12.3 % (11.5-14.5); WHITE BLOOD COUNT 6.7 10^3/ul (4.5-11.0)
[2017-06-23 09:15] LABS: ALB/GLOB RATIO 1.2 (1.1-1.8); ALBUMIN 3.6 g/dL (3.0-4.8); ALT/SGPT 21 U/L (7-56); AST/SGOT 15 U/L (14-36); BLOOD UREA NITROGEN 14 mg/dL (7-21); GFR AFRICAN-AMERICAN > 60; GFR NON-AFRICAN AMERICAN > 60
[2017-06-23] MEDS ORDERED: Divalproex 500 mg DR(BID formulation) PO SCH (11:00)
--- NOTE | 2017-06-23 12:43 | CP.PCM.DIS ---
<Kenrick Langford - Last Filed: 06/24/17 13:13> Provider - Provider Date of Admission: 06/22/17 14:51 Attending physician: Fan Parra MD Time Spent in preparation of Discharge (in minutes): 70 Hospital Course - Lab Results Lab Results: Most Recent Lab Values WBC 6.7 10^3/ul (4.5-11.0) D 06/23/17 08:30 RBC 4.27 10^6/uL (3.5-6.1) 06/23/17 08:30 Hgb 14.2 g/dL (12.0-16.0) 06/23/17 08:30 Hct 42.1 % (36.0-48.0) 06/23/17 08:30 MCV 98.6 fl (80.0-105.0) 06/23/17 08:30 MCH 33.3 pg (25.0-35.0) 06/23/17 08:30 MCHC 33.7 g/dl (31.0-37.0) 06/23/17 08:30 RDW 12.3 % (11.5-14.5) 06/23/17 08:30 Plt Count 222 10^3/uL (120.0-450.0) 06/23/17 08:30 MPV 11.6 fl (7.0-11.0) H 06/23/17 08:30 Gran % 49.4 % (50.0-68.0) L 06/23/17 08:30 Lymph % (Auto) 38.2 % (22.0-35.0) H 06/23/17 08:30 [place] % (Auto) 8.8 % (1.0-6.0) H 06/23/17 08:30 Eos % (Auto) 3.3 % (1.5-5.0) 06/23/17 08:30 Baso % (Auto) 0.3 % (0.0-3.0) 06/23/17 08:30 Gran # 3.30 (1.4-6.5) 06/23/17 08:30 Lymph # (Auto) 2.6 (1.2-3.4) 06/23/17 08:30 [place] # (Auto) 0.6 (0.1-0.6) 06/23/17 08:30 Eos # (Auto) 0.2 (0.0-0.7) 06/23/17 08:30 Baso # (Auto) 0.02 K/mm3 (0.0-2.0) 06/23/17 08:30 PT 11.7 SECONDS (9.4-12.5) 06/22/17 13:40 INR 1.02 (0.93-1.08) 06/22/17 13:40 APTT 32.6 Seconds (25.1-36.5) 06/22/17 13:40 Sodium 142 mmol/L (132-148) 06/23/17 08:30 Potassium 4.3 mmol/L (3.6-5.0) 06/23/17 08:30 Chloride 108 mmol/L (98-107) H 06/23/17 08:30 Carbon Dioxide 24 mmol/L (21-33) 06/23/17 08:30 Anion Gap 15 (10-20) 06/23/17 08:30 BUN 14 mg/dL (7-21) 06/23/17 08:30 Creatinine 0.6 mg/dl (0.7-1.2) L 06/23/17 08:30 Est GFR ( Amer) > 60 06/23/17 08:30 Est GFR (Non-Af Amer) > 60 06/23/17 08:30 Random Glucose 91 mg/dL (70-110) 06/23/17 08:30 Calcium 9.0 mg/dL (8.4-10.5) 06/23/17 08:30 Total Bilirubin 0.4 mg/dL (0.2-1.3) 06/23/17 08:30 AST 15 U/L (14-36) 06/23/17 08:30 ALT 21 U/L (7-56) 06/23/17 08:30 Alkaline Phosphatase 69 U/L (38-126) 06/23/17 08:30 Total Protein 6.6 g/dL (5.8-8.3) 06/23/17 08:30 Albumin 3.6 g/dL (3.0-4.8) 06/23/17 08:30 Globulin 2.9 gm/dL 06/23/17 08:30 Albumin/Globulin Ratio 1.2 (1.1-1.8) 06/23/17 08:30 Lipase 71 U/L (23-300) 06/22/17 13:40 Procalcitonin < 0.05 NG/ML (0.19-0.49) L 06/22/17 13:40 Urine Color Light yellow (YELLOW) 06/22/17 12:27 Urine Appearance Clear (CLEAR) 06/22/17 12:27 Urine pH 6.0 (4.7-8.0) 06/22/17 12:27 Ur Specific [place] 1.020 (1.005-1.035) 06/22/17 12:27 Urine Protein Negative mg/dL (<30 mg/dL) 06/22/17 12:27 Urine Glucose (UA) Negative mg/dL (NEGATIVE) 06/22/17 12:27 Urine Ketones Negative mg/dL (NEGATIVE) 06/22/17 12:27 Urine Blood Small (NEGATIVE) H 06/22/17 12:27 Urine Nitrate Negative (NEGATIVE) 06/22/17 12:27 Urine Bilirubin Negative (NEGATIVE) 06/22/17 12:27 Urine Urobilinogen 0.2 E.U./dL (<1 E.U./dL) 06/22/17 12:27 Ur Leukocyte Esterase Negative Maria Alejandra/uL (NEGATIVE) 06/22/17 12:27 Urine RBC 0 - 2 /hpf (0-2) 06/22/17 12:27 Urine WBC Negative /hpf (0-6) 06/22/17 12:27 Ur Epithelial Cells 0 - 2 /hpf (0-5) 06/22/17 12:27 Urine Bacteria None (NEG) 06/22/17 12:27 Urine Opiates Screen Negative (NEGATIVE) 06/22/17 13:55 Urine Methadone Screen Negative (NEGATIVE) 06/22/17 13:55 Ur Barbiturates Screen Negative (NEGATIVE) 06/22/17 13:55 Ur Phencyclidine Scrn Negative (NEGATIVE) 06/22/17 13:55 Ur Amphetamines Screen Negative (NEGATIVE) 06/22/17 13:55 U Benzodiazepines Scrn Negative (NEGATIVE) 06/22/17 13:55 U Oth Cocaine Metabols Negative (NEGATIVE) 06/22/17 13:55 U Cannabinoids Screen Positive (NEGATIVE) H 06/22/17 13:55 - Hospital Course Hospital Course: Patient is a 37 year old female with past medical history of IBS, pelvic abscess , endometriosis s/p hysterectomy, asthma, diverticulitis and external hemorrhoids who presents with abdominal pain which began day night. Patient was worked up for abdominal pain. CT abdomen did not show any pathology , labs and vitals were within normal limits. Procal was negative. Patient was watched overnight, then discharged and told to follow up with her GI and PMD. She was able to tolerate diet. She was started on Amitriptyline, given flexeral and fiorcet. She was also told to possible get in with a pain management physician. She agreed with the plan. Discharge Exam - Head Exam Head Exam: ATRAUMATIC, NORMAL INSPECTION, NORMOCEPHALIC - Eye Exam Eye Exam: EOMI, Normal appearance, PERRL - Respiratory Exam Respiratory Exam: Clear to PA & Lateral, NORMAL BREATHING PATTERN - Cardiovascular Exam Cardiovascular Exam: REGULAR RHYTHM - GI/Abdominal Exam GI & Abdominal Exam: Normal Bowel Sounds - Neurological Exam Neurological exam: Alert, CN II-XII Intact, Oriented x3 - Psychiatric Exam Psychiatric exam: Anxious Discharge Plan - Discharge Medications Prescriptions: Amitriptyline [Elavil] 10 mg PO DAILY #10 tab Cyclobenzaprine [Flexeril] 10 mg PO BID PRN #10 tab PRN Reason: Pain, Moderate (4-7) - Follow Up Plan Condition: STABLE Disposition: HOME/ ROUTINE Instructions: Acute Abdominal Pain (DC) Additional Instructions: 1. Follow up with PMD and GI doctor. 2. Take Amitriptylline daily for abdominal pain. It [place] [facility] [place]. Continue home medication as prescribed. 4. Consider referral to pain management. 5. Please take the flexerel and fiorcet as well. <Fan Parra - Last Filed: 06/24/17 14:17> Provider - Provider Date of Admission: 06/22/17 14:51 Attending physician: Fan Parra MD Hospital Course - Lab Results Lab Results: Most Recent Lab Values WBC 6.7 10^3/ul (4.5-11.0) D 06/23/17 08:30 RBC 4.27 10^6/uL (3.5-6.1) 06/23/17 08:30 Hgb 14.2 g/dL (12.0-16.0) 06/23/17 08:30 Hct 42.1 % (36.0-48.0) 06/23/17 08:30 MCV 98.6 fl (80.0-105.0) 06/23/17 08:30 MCH 33.3 pg (25.0-35.0) 06/23/17 08:30 MCHC 33.7 g/dl (31.0-37.0) 06/23/17 08:30 RDW 12.3 % (11.5-14.5) 06/23/17 08:30 Plt Count 222 10^3/uL (120.0-450.0) 06/23/17 08:30 MPV 11.6 fl (7.0-11.0) H 06/23/17 08:30 Gran % 49.4 % (50.0-68.0) L 06/23/17 08:30 Lymph % (Auto) 38.2 % (22.0-35.0) H 06/23/17 08:30 [place] % (Auto) 8.8 % (1.0-6.0) H 06/23/17 08:30 Eos % (Auto) 3.3 % (1.5-5.0) 06/23/17 08:30 Baso % (Auto) 0.3 % (0.0-3.0) 06/23/17 08:30 Gran # 3.30 (1.4-6.5) 06/23/17 08:30 Lymph # (Auto) 2.6 (1.2-3.4) 06/23/17 08:30 [place] # (Auto) 0.6 (0.1-0.6) 06/23/17 08:30 Eos # (Auto) 0.2 (0.0-0.7) 06/23/17 08:30 Baso # (Auto) 0.02 K/mm3 (0.0-2.0) 06/23/17 08:30 PT 11.7 SECONDS (9.4-12.5) 06/22/17 13:40 INR 1.02 (0.93-1.08) 06/22/17 13:40 APTT 32.6 Seconds (25.1-36.5) 06/22/17 13:40 Sodium 142 mmol/L (132-148) 06/23/17 08:30 Potassium 4.3 mmol/L (3.6-5.0) 06/23/17 08:30 Chloride 108 mmol/L (98-107) H 06/23/17 08:30 Carbon Dioxide 24 mmol/L (21-33) 06/23/17 08:30 Anion Gap 15 (10-20) 06/23/17 08:30 BUN 14 mg/dL (7-21) 06/23/17 08:30 Creatinine 0.6 mg/dl (0.7-1.2) L 06/23/17 08:30 Est GFR ( Amer) > 60 06/23/17 08:30 Est GFR (Non-Af Amer) > 60 06/23/17 08:30 Random Glucose 91 mg/dL (70-110) 06/23/17 08:30 Calcium 9.0 mg/dL (8.4-10.5) 06/23/17 08:30 Total Bilirubin 0.4 mg/dL (0.2-1.3) 06/23/17 08:30 AST 15 U/L (14-36) 06/23/17 08:30 ALT 21 U/L (7-56) 06/23/17 08:30 Alkaline Phosphatase 69 U/L (38-126) 06/23/17 08:30 Total Protein 6.6 g/dL (5.8-8.3) 06/23/17 08:30 Albumin 3.6 g/dL (3.0-4.8) 06/23/17 08:30 Globulin 2.9 gm/dL 06/23/17 08:30 Albumin/Globulin Ratio 1.2 (1.1-1.8) 06/23/17 08:30 Lipase 71 U/L (23-300) 06/22/17 13:40 Procalcitonin < 0.05 NG/ML (0.19-0.49) L 06/22/17 13:40 Urine Color Light yellow (YELLOW) 06/22/17 12:27 Urine Appearance Clear (CLEAR) 06/22/17 12:27 Urine pH 6.0 (4.7-8.0) 06/22/17 12:27 Ur Specific [place] 1.020 (1.005-1.035) 06/22/17 12:27 Urine Protein Negative mg/dL (<30 mg/dL) 06/22/17 12:27 Urine Glucose (UA) Negative mg/dL (NEGATIVE) 06/22/17 12:27 Urine Ketones Negative mg/dL (NEGATIVE) 06/22/17 12:27 Urine Blood Small (NEGATIVE) H 06/22/17 12:27 Urine Nitrate Negative (NEGATIVE) 06/22/17 12:27 Urine Bilirubin Negative (NEGATIVE) 06/22/17 12:27 Urine Urobilinogen 0.2 E.U./dL (<1 E.U./dL) 06/22/17 12:27 Ur Leukocyte Esterase Negative Maria Alejandra/uL (NEGATIVE) 06/22/17 12:27 Urine RBC 0 - 2 /hpf (0-2) 06/22/17 12:27 Urine WBC Negative /hpf (0-6) 06/22/17 12:27 Ur Epithelial Cells 0 - 2 /hpf (0-5) 06/22/17 12:27 Urine Bacteria None (NEG) 06/22/17 12:27 Urine Opiates Screen Negative (NEGATIVE) 06/22/17 13:55 Urine Methadone Screen Negative (NEGATIVE) 06/22/17 13:55 Ur Barbiturates Screen Negative (NEGATIVE) 06/22/17 13:55 Ur Phencyclidine Scrn Negative (NEGATIVE) 06/22/17 13:55 Ur Amphetamines Screen Negative (NEGATIVE) 06/22/17 13:55 U Benzodiazepines Scrn Negative (NEGATIVE) 06/22/17 13:55 U Oth Cocaine Metabols Negative (NEGATIVE) 06/22/17 13:55 U Cannabinoids Screen Positive (NEGATIVE) H 06/22/17 13:55 Attending/Attestation - Attestation I have personally seen and examined this patient.: Yes I have fully participated in the care of the patient.: Yes I have reviewed all pertinent clinical information, including history, physical exam and plan: Yes Notes (Text): I have seen and examined the patient at bedside. Agree with the above note with the following additions/ exceptions: Briefly this is 37 year old female with history of IBS, marijuana use, endometriosis s/p hysterectomy, oophorectomy, cholecystectomy, appendectomy, tonsillectomy, gastritis, asthma, diverticulitis and external hemorrhoids who came for evaluation of abdominal pain which is most likely due to scarring secondary to multiple surgeries in abdomen. CT abdomen reveals no abnormalities. Leukocytosis resolved. Procal is negative. Blood culture is negative. Kidney function, liver function and lipase normal. Chest Xray is normal. She does not appear to be in pain. Will advise against narcotics. UA negative. Upon discharge patient will follow up with Dr Gray. Dr Fan Parra
== END 2017-06-23 13:52 | disposition home or self-care (01) ==
LOC: ED 11:00 → ERH 14:51 → 5RNO 17:15
PROVIDERS: ADMIT Internal Medicine; ATTEND Hospitalist
DX: R10.9 Unspecified abdominal pain (principal); D72.829 Elevated white blood cell count, unspecified; J44.9 Chronic obstructive pulmonary disease, unspecified; K29.70 Gastritis, unspecified, without bleeding; K57.92 Diverticulitis of intestine, part unspecified, without perforation or abscess without bleeding; K58.9 Irritable bowel syndrome, unspecified; K64.4 Residual hemorrhoidal skin tags; F17.210 Nicotine dependence, cigarettes, uncomplicated; Z90.49 Acquired absence of other specified parts of digestive tract; Z90.710 Acquired absence of both cervix and uterus; Z86.69 Personal history of other diseases of the nervous system and sense organs; D64.9 Anemia, unspecified; L30.9 Dermatitis, unspecified; Z88.5 Allergy status to narcotic agent; Z88.0 Allergy status to penicillin; Z88.2 Allergy status to sulfonamides; Z88.1 Allergy status to other antibiotic agents; Z91.040 Latex allergy status; Z88.8 Allergy status to other drugs, medicaments and biological substances
CPT/HCPCS: 36415; 74176; 80053; 80324; 80345; 80346; 80349; 80353; 80358; 80361; 81001; 83690; 83992; 84145; 85025; 85610; 85730; 87086; 96372; 96374; 96375; 96376; 99285; C9113; G0378; J1885; J2270; J2405; J2765; J7040

== ENCOUNTER 2017-07-27 13:13 | Emergency (ER) | payer MEDICAID ==
[2017-07-27 13:14] VITALS: BMI 24.0
[2017-07-27 13:51] VITALS: RESP 18
[2017-07-27 13:58] VITALS: TEMP 98; O2SAT 99
[2017-07-27] MEDS ORDERED: Albuterol-Ipratrop 3 mg / 0.5 (3 ml) UD IH STA (14:04)
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
[2017-07-27 14:28] LABS: PH,URINE 6.5 (4.7-8.0); URINE BILIRUBIN NEGATIVE (NEGATIVE); URINE BLOOD TRACE-INTACT (NEGATIVE); URINE GLUCOSE (UA) NEGATIVE (NEGATIVE); URINE LEUKOCYTE ESTERASE NEGATIVE Leu/uL (NEGATIVE); URINE PROTEIN NEGATIVE mg/dL (<30 mg/dL); URINE UROBILINOGEN 0.2 E.U./dL (<1 E.U./dL)
[2017-07-27 14:29] LABS: URINE APPEARANCE CLEAR (CLEAR); URINE COLOR YELLOW (YELLOW)
--- NOTE | 2017-07-27 14:31 | RAD ---
HISTORY: sob COMPARISON: No prior. FINDINGS: LUNGS: No active pulmonary disease. PLEURA: No significant pleural effusion identified, no pneumothorax apparent. CARDIOVASCULAR: Normal. OSSEOUS STRUCTURES: No significant abnormalities. VISUALIZED UPPER ABDOMEN: Normal. OTHER FINDINGS: None. IMPRESSION: No active disease.
[2017-07-27 14:35] LABS: URINE BACTERIA TRACE (NEG); URINE EPITHELIAL CELLS 0 - 2 /hpf (0-5); URINE RBC 0 - 2 /hpf (0-2); URINE WBC NEGATIVE /hpf (0-6)
[2017-07-27 15:19] LABS: VENOUS BLOOD GAS BASE EXCESS 0.8 mmol/L (0.0-2.0); VENOUS BLOOD GAS PO2 46 mm/Hg (30-55); VENOUS BLOOD PH 7.39 (7.32-7.43)
[2017-07-27 15:20] LABS: BASO # 0.04 K/mm3 (0.0-2.0); BASO % 0.3 % (0.0-3.0); EOS # 0.3 (0.0-0.7); EOS % 2.6 % (1.5-5.0); GRAN # 5.68 (1.4-6.5); GRAN % 49.1 % (50.0-68.0); HEMOGLOBIN 14.3 g/dL (12.0-16.0); LYMPH # 4.8 (1.2-3.4); LYMPH % 41.4 % (22.0-35.0); MEAN CELL VOLUME 95.3 fl (80.0-105.0); MEAN CORPUSCULAR HEMOGLOBIN 33.3 pg (25.0-35.0); MEAN PLATELET VOLUME 11.8 fl (7.0-11.0); MONO # 0.8 (0.1-0.6); MONO % 6.6 % (1.0-6.0); RBC 4.29 10^6/uL (3.5-6.1); RED CELL DISTRIBUTION WIDTH 12.4 % (11.5-14.5); WHITE BLOOD COUNT 11.6 10^3/ul (4.5-11.0)
[2017-07-27 15:31] LABS: ALB/GLOB RATIO 1.3 (1.1-1.8); ALBUMIN 4.1 g/dL (3.0-4.8); ALT/SGPT 21 U/L (7-56); AST/SGOT 15 U/L (14-36); BLOOD UREA NITROGEN 11 mg/dL (7-21); CALCIUM 10.1 mg/dL (8.4-10.5); GFR AFRICAN-AMERICAN > 60; GFR NON-AFRICAN AMERICAN > 60
[2017-07-27] MEDS ORDERED: Sodium Chloride 0.9% 1,000 ML IV STA (15:40)
--- NOTE | 2017-07-27 16:30 | CT ---
PROCEDURE: CT Abdomen and Pelvis without intravenous contrast HISTORY: right flank pain r/o kidney stone COMPARISON: Noncontrast abdomen and pelvis CT examination 06/22/2017. TECHNIQUE: Helical CT of the abdomen and pelvis was performed without oral or intravenous contrast as per referring physician request.. Contrast Dose: None Radiation dose: Total exam DLP = 546.95 mGy-cm. This CT exam was performed using one or more of the following dose reduction techniques: Automated exposure control, adjustment of the mA and/or kV according to patient size, and/or use of iterative reconstruction technique. FINDINGS: LOWER THORAX: Unremarkable. LIVER: Unremarkable. No gross lesion or ductal dilatation. GALLBLADDER AND BILE DUCTS: Prior cholecystectomy apparent. PANCREAS: Unremarkable. No gross lesion or ductal dilatation. SPLEEN: Unremarkable. ADRENALS: Unremarkable. No mass. KIDNEYS AND URETERS: No radiodense urolithiasis, obstructive uropathy or perinephric reaction bilaterally. The renal appearance is stable and unremarkable bilaterally. VASCULATURE: Unremarkable. No aortic aneurysm. BOWEL: Moderate fecal loading is seen in the right hemicolon with a large-bowel otherwise appearing collapsed. APPENDIX: Not identified. No pertinent right lower quadrant findings nevertheless. PERITONEUM: Unremarkable. No free fluid. No free air. LYMPH NODES: Unremarkable. No enlarged lymph nodes. BLADDER: Unremarkable. REPRODUCTIVE: Unremarkable. BONES: No acute fracture. OTHER FINDINGS: None. IMPRESSION: No obstructive uropathy, radiodense urolithiasis or perinephric reaction bilaterally. Urinary bladder is unremarkable. Prior cholecystectomy.
[2017-07-27 17:37] VITALS: BP 116/71; PULSE 71
--- NOTE | 2017-07-27 20:52 | CARD ---
APPROVED REPORT EKG Measurement Heart [id number] CT [id number] <Conclusion> Normal sinus rhythm Normal ECG
== END 2017-07-27 17:46 | disposition home or self-care (01) ==
LOC: ED 13:13
DX: J45.909 Unspecified asthma, uncomplicated (principal); M54.9 Dorsalgia, unspecified; F17.200 Nicotine dependence, unspecified, uncomplicated
CPT/HCPCS: 71045; 74176; 80053; 81001; 82803; 85025; 93005; 96361; 96374; 96375; 99285; J1885; J2930; J7040

== ENCOUNTER 2018-03-14 18:13 | Observation (INO) | payer MEDICAID ==
[2018-03-14 18:14] VITALS: BMI 24.0
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
[2018-03-14 20:02] LABS: BASO # 0.03 K/mm3 (0.0-2.0); BASO % 0.1 % (0.0-3.0); EOS # 0.1 (0.0-0.7); EOS % 0.2 % (1.5-5.0); GRAN % 82.8 % (50.0-68.0); HEMOGLOBIN 14.5 g/dL (12.0-16.0); LYMPH % 13.7 % (22.0-35.0); MEAN CELL VOLUME 98.1 fl (80.0-105.0); MEAN CORPUSCULAR HEMOGLOBIN 33.8 pg (25.0-35.0); MEAN CORPUSCULAR HGB CONC 34.4 g/dl (31.0-37.0); MEAN PLATELET VOLUME 12.1 fl (7.0-11.0); MONO # 0.7 (0.1-0.6); MONO % 3.2 % (1.0-6.0); RBC 4.29 10^6/uL (3.5-6.1); RED CELL DISTRIBUTION WIDTH 12.9 % (11.5-14.5); WHITE BLOOD COUNT 21.8 10^3/uL (4.5-11.0)
[2018-03-14] MEDS: Sodium Chloride 0.9% 1,000 ML IV SCH (20:24)
[2018-03-14] MEDS ORDERED: Sodium Chloride 0.9% 1,000 ML IV STA (20:44)
[2018-03-14 20:47] LABS: ALB/GLOB RATIO 1.3 (1.1-1.8); ALBUMIN 4.4 g/dL (3.0-4.8); ALT/SGPT 20 U/L (7-56); AST/SGOT 23 U/L (14-36); BLOOD UREA NITROGEN 13 mg/dL (7-21); CALCIUM 9.5 mg/dL (8.4-10.5); GFR NON-AFRICAN AMERICAN > 60; LIPASE 31 U/L (23-300)
[2018-03-14 20:48] LABS: ACETAMINOPHEN < 10.0 ug/ml (10.0-20.0); SALICYLATE < 1 mg/dL (2.0-20.0)
[2018-03-14 21:56] LABS: ARTERIAL BLOOD GAS HCO3 24.2 mmol/L (21-28); ARTERIAL BLOOD GAS O2 SAT 99.2 % (95-98); ARTERIAL BLOOD GAS PCO2 40 mm/Hg (35-45); ARTERIAL BLOOD GAS PH 7.39 (7.35-7.45); ARTERIAL BLOOD GAS TCO2 25.4 mmol.L (22-28)
[2018-03-14] MEDS ORDERED: Divalproex 500 mg ER (ONCE DAILY formulation) PO STA (22:47)
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
[2018-03-14] MEDS ORDERED: Sodium Chloride 0.9% 1,000 ML IV SCH (23:45)
[2018-03-14 23:56] LABS: URINE BILIRUBIN NEGATIVE (NEGATIVE); URINE BLOOD TRACE-INTACT (NEGATIVE); URINE GLUCOSE (UA) NEGATIVE (NEGATIVE); URINE LEUKOCYTE ESTERASE NEGATIVE Leu/uL (NEGATIVE); URINE PROTEIN TRACE mg/dL (<30 mg/dL); URINE UROBILINOGEN 0.2 E.U./dL (<1 E.U./dL)
[2018-03-15 00:06] LABS: BARBITURATES, UR NEGATIVE (NEGATIVE); BENZODIAZEPINES, UR POSITIVE (NEGATIVE); OPIATES, UR NEGATIVE (NEGATIVE); PHENCYCLIDINE, UR NEGATIVE (NEGATIVE)
[2018-03-15 00:09] LABS: URINE APPEARANCE SL CLOUDY (CLEAR); URINE COLOR YELLOW (YELLOW)
[2018-03-15] MEDS ORDERED: Apap-Butalbital-Caffeine 325-50-40mg Tab PO PRN (00:09)
[2018-03-15] MEDS ORDERED: Albuterol HFA 90 mcg/actuation (8 g) IH PRN (00:09)
[2018-03-15] MEDS ORDERED: Albuterol 0.042% Inhal Sol (1.25 mg/3 mL) UD IH PRN (00:14)
[2018-03-15 01:09] LABS: URINE RBC NEGATIVE /hpf (0-2); URINE WBC NEGATIVE /hpf (0-6)
[2018-03-15 01:10] LABS: URINE BACTERIA MOD (NEG)
[2018-03-15] MEDS: Sodium Chloride 0.9% 1,000 ML IV SCH (05:23)
--- NOTE | 2018-03-15 06:42 | CP.PCM.PN ---
Subjective - Date & Time of Evaluation Date of Evaluation: 03/15/18 Time of Evaluation: 06:42 - Subjective Subjective: Resident Progress Note for Hospitalist Service Objective - Vital Signs/Intake and Output Vital Signs (last 24 hours): Temp Pulse Resp BP Pulse Ox 98 F 98 H 18 101/66 97 03/15/18 00:40 03/15/18 01:38 03/15/18 01:07 03/15/18 00:40 03/15/18 00:40 Intake and Output: 03/14/18 03/15/18 18:59 06:59 Intake Total 800 Output Total 0 Balance 800 - Medications Medications: Current Medications Acetaminophen/Butalbital/Caffeine (Fioricet) 1 tab PO TID PRN PRN Reason: Pain, severe (8-10) Albuterol Sulfate (Albuterol 0.042% Inhal Valeria (1.25mg/3ml) Ud) 1.25 mg IH Q4H PRN PRN Reason: Shortness of Breath Clonazepam (Klonopin) 1 mg PO TID [facility]; Protocol Last Admin: 03/15/18 01:09 Dose: 1 mg Cyclobenzaprine HCl (Flexeril) 10 mg PO BID PRN PRN Reason: Pain, moderate (4-7) Famotidine (Pepcid) 20 mg PO 1000,2200 KADY Gabapentin (Neurontin) 200 mg PO TID [facility]; Protocol Last Admin: 03/15/18 01:09 Dose: 200 mg Sodium Chloride (Sodium Chloride 0.9%) 1,000 mls @ 100 mls/hr IV .Q10H KADY Last Admin: 03/15/18 05:23 Dose: 100 mls/hr Lamotrigine (Lamictal) 150 mg PO BID [facility]; Protocol Mirtazapine (Remeron) 30 mg PO HS [facility]ADY Sertraline HCl (Zoloft) 50 mg PO DAILY [facility] Last Admin: 03/15/18 01:09 Dose: 50 mg Valproate Sodium (Depakene Cap) 500 mg PO BID [facility] - Labs Labs: 03/14/18 19:51 03/14/18 20:29
[2018-03-15 07:03] VITALS: RESP 20; O2SAT 95
[2018-03-15 07:40] LABS: BLOOD UREA NITROGEN 13 mg/dL (7-21); CALCIUM 9.3 mg/dL (8.4-10.5); GFR NON-AFRICAN AMERICAN > 60
--- NOTE | 2018-03-15 08:14 | CARD ---
APPROVED REPORT Date of service: 03/14/2018 EKG Measurement Heart [id number] <Conclusion> Normal sinus rhythm NSSTW changes
[2018-03-15 08:32] LABS: BASO # 0.03 K/mm3 (0.0-2.0); BASO % 0.2 % (0.0-3.0); EOS # 0.1 (0.0-0.7); EOS % 0.5 % (1.5-5.0); GRAN # 9.04 (1.4-6.5); GRAN % 70.9 % (50.0-68.0); HEMOGLOBIN 13.1 g/dL (12.0-16.0); LYMPH # 2.9 (1.2-3.4); LYMPH % 22.8 % (22.0-35.0); MEAN CORPUSCULAR HEMOGLOBIN 32.9 pg (25.0-35.0); MEAN CORPUSCULAR HGB CONC 33.6 g/dl (31.0-37.0); MEAN PLATELET VOLUME 11.7 fl (7.0-11.0); MONO # 0.7 (0.1-0.6); MONO % 5.6 % (1.0-6.0); RBC 3.98 10^6/uL (3.5-6.1); RED CELL DISTRIBUTION WIDTH 12.7 % (11.5-14.5); WHITE BLOOD COUNT 12.8 10^3/uL (4.5-11.0)
--- NOTE | 2018-03-15 08:53 | CT ---
Date of service: 03/14/2018 PROCEDURE: CT HEAD WITHOUT CONTRAST. HISTORY: seizures COMPARISON: None available. TECHNIQUE: Axial computed tomography images were obtained through the head/brain without intravenous contrast. Supplemental Coronal and Sagittal projections created and reviewed. Radiation dose: Total exam DLP = 851.87 mGy-cm. This CT exam was performed using one or more of the following dose reduction techniques: Automated exposure control, adjustment of the mA and/or kV according to patient size, and/or use of iterative reconstruction technique. FINDINGS: HEMORRHAGE: No intracranial hemorrhage. BRAIN: No mass effect or edema. No atrophy or chronic microvascular ischemic changes. VENTRICLES: Unremarkable. No hydrocephalus. CALVARIUM: Unremarkable. PARANASAL SINUSES: Unremarkable as visualized. No significant inflammatory changes. MASTOID AIR CELLS: Unremarkable as visualized. No inflammatory changes. OTHER FINDINGS: None. IMPRESSION: No acute intracranial abnormalities. No significant findings to account for the clinical presentation.No significant interval change compared to the prior examination(s). Concordant results (preliminary interpretation) provided by [employer]. Procedure Completed: 22:03. Preliminary Report: Dictated and Authenticated: 22:53. Final Interpretation: 08:49. March 15, 2018
--- NOTE | 2018-03-15 10:38 | RAD ---
Date of service: 03/14/2018 HISTORY: medical clearance COMPARISON: 03/11/2017 FINDINGS: LUNGS: No active pulmonary disease. PLEURA: No significant pleural effusion identified, no pneumothorax apparent. CARDIOVASCULAR: No atherosclerotic calcification present Normal. OSSEOUS STRUCTURES: No significant abnormalities. VISUALIZED UPPER ABDOMEN: Normal. OTHER FINDINGS: None. IMPRESSION: No active disease. No significant interval change compared to the prior examination(s).
--- NOTE | 2018-03-15 13:37 | CON ---
DATE: 03/15/2018 HISTORY OF PRESENT ILLNESS: This is a 33-year-old female with a past medical history of asthma, endometriosis, seizure, and brought by ambulance the patient had seizure in the ambulance and at home and called to evaluate the patient. The patient was more alert and awake. No tongue bite. No urinary incontinence. WBC was found to be 21.8. PAST MEDICAL HISTORY: Seizure. PHYSICAL EXAMINATION VITAL SIGNS: Blood pressure 101/66. HEENT: Normocephalic, atraumatic. NECK: Supple. NEUROLOGIC: Alert, awake, oriented to x3. No aphasia. Cranial nerves II-XII were tested. Pupils reactive. Spontaneous movement of the extremities noted. Deep tendon reflexes 1+. Plantars are downgoing. Sensory appears intact. Cerebellar gait normal. IMPRESSION/PLAN: Seizure disorder and continue present management. We will follow up. Tucker Mora MD
[2018-03-15 13:58] VITALS: BP 134/86; TEMP 97.9
--- NOTE | 2018-03-15 15:06 | CP.PCM.DIS ---
Provider - Provider Date of Admission: 03/14/18 23:00 Attending physician: Wilfredo Sapp MD Primary care physician: Dr. Casey Consults: Dr. Casey Time Spent in preparation of Discharge (in minutes): 45 Diagnosis - Discharge Diagnosis (1) Seizure Status: Resolved (2) Leukocytosis Status: Resolved Hospital Course - Lab Results Lab Results: Most Recent Lab Values WBC 12.8 10^3/uL (4.5-11.0) H D 03/15/18 08:00 RBC 3.98 10^6/uL (3.5-6.1) 03/15/18 08:00 Hgb 13.1 g/dL (12.0-16.0) 03/15/18 08:00 Hct 39.0 % (36.0-48.0) 03/15/18 08:00 MCV 98.0 fl (80.0-105.0) 03/15/18 08:00 MCH 32.9 pg (25.0-35.0) 03/15/18 08:00 MCHC 33.6 g/dl (31.0-37.0) 03/15/18 08:00 RDW 12.7 % (11.5-14.5) 03/15/18 08:00 Plt Count 309 10^3/uL (120.0-450.0) 03/15/18 08:00 MPV 11.7 fl (7.0-11.0) H 03/15/18 08:00 Gran % 70.9 % (50.0-68.0) H 03/15/18 08:00 Lymph % (Auto) 22.8 % (22.0-35.0) 03/15/18 08:00 Moffat % (Auto) 5.6 % (1.0-6.0) 03/15/18 08:00 Eos % (Auto) 0.5 % (1.5-5.0) L 03/15/18 08:00 Baso % (Auto) 0.2 % (0.0-3.0) 03/15/18 08:00 Gran # 9.04 (1.4-6.5) H 03/15/18 08:00 Lymph # (Auto) 2.9 (1.2-3.4) 03/15/18 08:00 Moffat # (Auto) 0.7 (0.1-0.6) H 03/15/18 08:00 Eos # (Auto) 0.1 (0.0-0.7) 03/15/18 08:00 Baso # (Auto) 0.03 K/mm3 (0.0-2.0) 03/15/18 08:00 pCO2 40 mm/Hg (35-45) 03/14/18 21:53 pO2 99.0 mm/Hg (80-100) 03/14/18 21:53 HCO3 24.2 mmol/L (21-28) 03/14/18 21:53 ABG pH 7.39 (7.35-7.45) 03/14/18 21:53 ABG Total CO2 25.4 mmol.L (22-28) 03/14/18 21:53 ABG O2 Saturation 99.2 % (95-98) H 03/14/18 21:53 ABG Base Excess -0.7 mmol/L (-2.0-3.0) 03/14/18 21:53 ABG Potassium 3.6 mmol/L (3.6-5.2) 03/14/18 21:53 Sodium 143.0 mmol/L (132-148) 03/14/18 21:53 Chloride 110.0 mmol/L (98-107) H 03/14/18 21:53 Glucose 90 mg/dl (65-105) 03/14/18 21:53 Lactate 1.3 mmol/L (0.7-2.1) 03/14/18 21:53 FiO2 21.0 % 03/14/18 21:53 Sodium 141 mmol/L (132-148) 03/15/18 06:45 Potassium 4.3 mmol/L (3.6-5.0) 03/15/18 06:45 Chloride 111 mmol/L (98-107) H 03/15/18 06:45 Carbon Dioxide 23 mmol/L (21-33) 03/15/18 06:45 Anion Gap 12 (10-20) 03/15/18 06:45 BUN 13 mg/dL (7-21) 03/15/18 06:45 Creatinine 0.6 mg/dl (0.7-1.2) L 03/15/18 06:45 Est GFR ( Amer) > 60 03/15/18 06:45 Est GFR (Non-Af Amer) > 60 03/15/18 06:45 POC Glucose (mg/dL) 143 mg/dL (65-110) H 03/14/18 18:25 Random Glucose 97 mg/dL (70-110) 03/15/18 06:45 Hemoglobin A1c 5.7 % (4.2-6.5) 03/15/18 07:30 Calcium 9.3 mg/dL (8.4-10.5) 03/15/18 06:45 Phosphorus 3.5 mg/dL (2.5-4.5) 03/15/18 06:45 Magnesium 2.2 mg/dL (1.7-2.2) 03/15/18 06:45 Total Bilirubin 0.2 mg/dL (0.2-1.3) 03/14/18 20:29 AST 23 U/L (14-36) 03/14/18 20:29 ALT 20 U/L (7-56) 03/14/18 20:29 Alkaline Phosphatase 99 U/L (38-126) 03/14/18 20:29 Total Creatine Kinase 89 U/L (35-230) 03/14/18 20:29 Total Protein 7.7 g/dL (5.8-8.3) 03/14/18 20:29 Albumin 4.4 g/dL (3.0-4.8) 03/14/18 20:29 Globulin 3.3 gm/dL 03/14/18 20:29 Albumin/Globulin Ratio 1.3 (1.1-1.8) 03/14/18 20:29 Lipase 31 U/L (23-300) 03/14/18 20:29 TSH 3rd Generation 1.97 mIU/mL (0.46-4.68) 03/15/18 08:00 Beta HCG, Quant < 2.39 mIU/mL (0-6.15) 03/14/18 20: Arterial Blood Potassium 3.6 mmol/L (3.6-5.2) 03/14/18 21:53 Urine Color Yellow (YELLOW) 03/14/18 22:59 Urine Appearance Sl cloudy (CLEAR) 03/14/18 22:59 Urine pH 6.0 (4.7-8.0) 03/14/18 22:59 Ur Specific [place] >= 1.030 (1.005-1.035) 03/14/18 22:59 Urine Protein Trace mg/dL (<30 mg/dL) H 03/14/18 22:59 Urine Glucose (UA) Negative mg/dL (NEGATIVE) 03/14/18 22:59 Urine Ketones Negative mg/dL (NEGATIVE) 03/14/18 22:59 Urine Blood Trace-intact (NEGATIVE) H 03/14/18 22:59 Urine Nitrate Negative (NEGATIVE) 03/14/18 22:59 Urine Bilirubin Negative (NEGATIVE) 03/14/18 22:59 Urine Urobilinogen 0.2 E.U./dL (<1 E.U./dL) 03/14/18 22:59 Ur Leukocyte Esterase Negative Maria Alejandra/uL (NEGATIVE) 03/14/18 22:59 Urine RBC Negative /hpf (0-2) 03/14/18 22:59 Urine WBC Negative /hpf (0-6) 03/14/18 22:59 Ur Epithelial Cells 6 - 8 /hpf (0-5) 03/14/18 22:59 Urine Bacteria Mod (NEG) 03/14/18 22:59 Urine Other Mucus 03/14/18 22:59 Salicylates < 1 mg/dL (2.0-20.0) L 03/14/18 20:29 Urine Opiates Screen Negative (NEGATIVE) 03/14/18 22:59 Urine Methadone Screen Negative (NEGATIVE) 03/14/18 22:59 Acetaminophen < 10.0 ug/ml (10.0-20.0) L 03/14/18 20:29 Ur Barbiturates Screen Negative (NEGATIVE) 03/14/18 22:59 Valproic Acid 15 ug/mL (50.0-100.0) L 03/14/18 20:29 Ur Phencyclidine Scrn Negative (NEGATIVE) 03/14/18 22:59 Ur Amphetamines Screen Negative (NEGATIVE) 03/14/18 22:59 U Benzodiazepines Scrn Positive (NEGATIVE) H 03/14/18 22:59 U Oth Cocaine Metabols Negative (NEGATIVE) 03/14/18 22:59 U Cannabinoids Screen Positive (NEGATIVE) H 03/14/18 22:59 Alcohol, Quantitative < 10 mg/dL (0-10) 03/14/18 19:51 - Hospital Course Hospital Course: On admission: Pt is a 37yo F with PMH seizures, IBS, endometriosis, asthma, diverticulitis that was brought in by ambulance after a seizure at home. Pt reports having a seizure this afternoon, which was preceded by feeling dizzy and faint. Pt denies missing anti-seizure medication dose, taking drugs or alcohol recently, or any recent trauma. Pt denies any urinary or fecal incontinence, ton jamie-biting, or head trauma during seizure episode. EMS reported another seizure in the ambulance. Pt denies recent travel or sick contacts. She denies any fever, chills, cough, nausea, vomiting, abdominal pain, chest pain, shortness of breath, diarrhea, dysuria. During hospital stay: CT head was done which was unremarkable. Patient was given lamictal and depakote in ED. UDS was found positive for cannabinoids, benzodiazepines. Depakote level was 15 (low). CXR showed no active disease. Neurology Dr. Mora was consulted. Advised to continue present management. Patient was medically optimized for discharge. Patient was advised to follow up with primary medical doctor and neurologist within one week. Patient was instructed to resume home medications as prescribed and to return to ED if symptoms return or worsen. Patient expressed understanding. - Date & Time of H&P Date of H&P: 03/14/18 Time of H&P: 23:36 Discharge Exam - Additional Findings Additional findings: - Constitutional Appears: Well, No Acute Distress - Head Exam Head Exam: ATRAUMATIC, NORMOCEPHALIC - Eye Exam Eye Exam: EOMI, Normal appearance Pupil Exam: NORMAL ACCOMODATION - ENT Exam ENT Exam: Mucous Membranes Moist - Neck Exam Neck exam: Positive for: Normal Inspection. Negative for: Lymphadenopathy, Tenderness - Respiratory Exam Respiratory Exam: Clear to Auscultation Bilateral, NORMAL BREATHING PATTERN. - Cardiovascular Exam Cardiovascular Exam: REGULAR RHYTHM, +S1, +S2. - GI/Abdominal Exam GI & Abdominal Exam: Normal Bowel Sounds, Soft. - Extremities Exam Extremities exam: Positive for: normal inspection. - Neurological Exam Neurological exam: Alert, CN II-XII Intact, Oriented x3 - Skin Skin Exam: Intact, Normal Color Discharge Plan - Follow Up Plan Condition: STABLE Disposition: HOME/ ROUTINE Patient education suggested?: Yes Instructions: Seizures, Adult (DC) Additional Instructions: Please follow up with your primary medical doctor Dr. Casey within one week. Also follow up with your neurologist Dr. Mora in one week. Please continue your home medications as prescribed. Return to ED if symptoms return or worsen. Referrals: Tucker Mora MD [Staff Provider] -
[2018-03-15 16:31] VITALS: PULSE 86
== END 2018-03-15 16:32 | disposition home or self-care (01) ==
LOC: ED 18:13 → ERH 23:00 → 2RSO 03-15 00:27
PROVIDERS: ADMIT Internal Medicine; ATTEND Internal Medicine
DX: G40.901 Epilepsy, unspecified, not intractable, with status epilepticus (principal); D72.829 Elevated white blood cell count, unspecified; J44.9 Chronic obstructive pulmonary disease, unspecified; K58.9 Irritable bowel syndrome, unspecified; F17.210 Nicotine dependence, cigarettes, uncomplicated; Z88.6 Allergy status to analgesic agent; Z88.1 Allergy status to other antibiotic agents; Z88.0 Allergy status to penicillin; Z90.49 Acquired absence of other specified parts of digestive tract; Z90.710 Acquired absence of both cervix and uterus
CPT/HCPCS: 36415; 70450; 71045; 80048; 80053; 80164; 80175; 80320; 80324; 80329; 80345; 80346; 80349; 80353; 80358; 80361; 81001; 82550; 82803; 82948; 83036; 83690; 83735; 83992; 84100; 84443; 84702; 85025; 87040; 93005; 96374; 99285; G0378; J2765; J7030

== ENCOUNTER 2018-05-19 20:45 | Inpatient (IN) | payer MEDICAID, OTHER ==
[2018-05-19 20:48] VITALS: BMI 25.4
[2018-05-19] MEDS ORDERED: Etomidate 20 mg/10ml Inj IV ONE (21:07)
[2018-05-19] MEDS ORDERED: Succinylcholine 200 mg/10 ml Inj IV ONE (21:08)
[2018-05-19] MEDS ORDERED: Propofol 10 mg/ml 1,000 MG/100 ML VIAL IV PRN ×2 (21:12→23:43)
[2018-05-19] MEDS ORDERED: Propofol 10 mg/ml 1,000 MG/100 ML VIAL ONE (21:13)
[2018-05-19 21:14] LABS: BASO % 0.3 % (0.0-3.0); EOS % 1.9 % (1.5-5.0); LYMPH % 44.6 % (22.0-35.0); MEAN CELL VOLUME 98.6 fl (80.0-105.0); MEAN CORPUSCULAR HEMOGLOBIN 32.9 pg (25.0-35.0); MEAN CORPUSCULAR HGB CONC 33.4 g/dl (31.0-37.0); MEAN PLATELET VOLUME 12.9 fl (7.0-11.0); MONO % 8.1 % (1.0-6.0); RBC 4.25 10^6/uL (3.5-6.1); RED CELL DISTRIBUTION WIDTH 13.4 % (11.5-14.5); WHITE BLOOD COUNT 9.5 10^3/uL (4.5-11.0)
[2018-05-19 21:15] LABS: BASO # 0.03 K/mm3 (0.0-2.0); EOS # 0.2 (0.0-0.7); LYMPH # 4.2 (1.2-3.4); MONO # 0.8 (0.1-0.6)
[2018-05-19] MEDS ORDERED: Midazolam 2 MG/2 ML VIAL ONE (21:15)
[2018-05-19 21:17] LABS: ALB/GLOB RATIO 1.3 (1.1-1.8); ALBUMIN 4.5 g/dL (3.0-4.8); ALT/SGPT 29 U/L (7-56); AST/SGOT 30 U/L (14-36); BLOOD UREA NITROGEN 6 mg/dL (7-21); CALCIUM 9.4 mg/dL (8.4-10.5); GFR NON-AFRICAN AMERICAN > 60; INR 1.08
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
[2018-05-19] MEDS ORDERED: Midazolam 2 MG/2 ML VIAL IVP STA ×2 (22:16→22:18)
[2018-05-19] MEDS ORDERED: Etomidate 20 mg/10ml Inj IVP STA (22:16)
[2018-05-19] MEDS ORDERED: Succinylcholine 200 mg/10 ml Inj IV STA (22:16)
[2018-05-19 22:21] LABS: URINE BILIRUBIN NEGATIVE (NEGATIVE); URINE BLOOD TRACE-INTACT (NEGATIVE); URINE GLUCOSE (UA) NEGATIVE (NEGATIVE); URINE LEUKOCYTE ESTERASE NEGATIVE Leu/uL (NEGATIVE); URINE PROTEIN TRACE mg/dL (<30 mg/dL); URINE UROBILINOGEN 0.2 E.U./dL (<1 E.U./dL)
[2018-05-19 22:22] LABS: URINE COLOR YELLOW (YELLOW)
[2018-05-19 22:23] LABS: URINE APPEARANCE CLEAR (CLEAR)
--- NOTE | 2018-05-19 22:53 | CP.PCM.PCO ---
<Rosa Schaeffer - Last Filed: 05/19/18 22:53> Assessment & Plan - Assessment and Plan (Free Text) Plan: 10:50pm Per Pt's blind partner, he is out of town, and pt's outpt neurologist is Dr Nieves. 10:51pm Placed called to Dr Nieves answering service. tre GUERIN, Dr Nieves answer service, states that, per her fabrication supervisor dianne, the servuce cannot page dr nieves, because there is no coverage at [facility] [place]. We had to consult the neurologist on hospitalist service. <Travis Blanco - Last Filed: 05/20/18 00:14> Attending/Attestation - Attestation I have personally seen and examined this patient.: Yes I have fully participated in the care of the patient.: Yes I have reviewed all pertinent clinical information: Yes
[2018-05-19 22:54] LABS: BARBITURATES, UR POSITIVE (NEGATIVE); BENZODIAZEPINES, UR POSITIVE (NEGATIVE); OPIATES, UR NEGATIVE (NEGATIVE); PHENCYCLIDINE, UR NEGATIVE (NEGATIVE)
[2018-05-19] MEDS ORDERED: levETIRAcetam 1000mg/100ml NS 100 ML IV ONE (22:54)
[2018-05-19] MEDS ORDERED: Albuterol-Ipratrop 3 mg / 0.5 (3 ml) UD IH PRN (23:07)
[2018-05-19] MEDS: Sodium Chloride 0.9% 1,000 ML IV SCH (23:15)
[2018-05-19] MEDS: Valproate 1,000 MG in Sodium Chloride 0.9% 100 ML IVPB SCH (23:31)
[2018-05-19] MEDS: Albuterol-Ipratrop 3 mg / 0.5 (3 ml) UD IH SCH (23:31)
[2018-05-19] MEDS: Midazolam 100 mg/100ml in NS 100 MG/100 ML SOL IV PRN (23:56)
[2018-05-20 00:05] LABS: ARTERIAL BLOOD GAS HCO3 18.8 mmol/L (21-28); ARTERIAL BLOOD GAS HEMOGLOBIN 9.4 g/dL (11.7-17.4); ARTERIAL BLOOD GAS O2 CAPACITY 13.1 mL/dl (16-24); ARTERIAL BLOOD GAS O2 CONTENT 13.1 ML/dl (15-23); ARTERIAL BLOOD GAS PCO2 31 mm/Hg (35-45); ARTERIAL BLOOD GAS PH 7.39 (7.35-7.45); ARTERIAL BLOOD GAS TCO2 19.8 mmol.L (22-28)
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
[2018-05-20] MEDS: Propofol 10 mg/ml 1,000 MG/100 ML VIAL IV PRN ×5 (01:06→22:52)
[2018-05-20] MEDS: Valproate 1,000 MG in Sodium Chloride 0.9% 100 ML IVPB SCH (05:37)
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
[2018-05-20] MEDS: Albuterol-Ipratrop 3 mg / 0.5 (3 ml) UD IH SCH ×5 (07:37→23:33)
--- NOTE | 2018-05-20 08:32 | CT ---
Date of service: 05/20/2018 PROCEDURE: CT HEAD WITHOUT CONTRAST. HISTORY: fall, seizure COMPARISON: Comparison is made to the previous study dated 03/14/2018 TECHNIQUE: Axial computed tomography images were obtained through the head/brain without intravenous contrast. Radiation dose: Total exam DLP = 1047.69 mGy-cm. This CT exam was performed using one or more of the following dose reduction techniques: Automated exposure control, adjustment of the mA and/or kV according to patient size, and/or use of iterative reconstruction technique. FINDINGS: HEMORRHAGE: No intracranial hemorrhage. BRAIN: No mass effect or edema. No atrophy or chronic microvascular ischemic changes. VENTRICLES: Unremarkable. No hydrocephalus. CALVARIUM: Unremarkable. PARANASAL SINUSES: Unremarkable as visualized. No significant inflammatory changes. MASTOID AIR CELLS: Unremarkable as visualized. No inflammatory changes. OTHER FINDINGS: None. IMPRESSION: No evidence of acute intracranial hemorrhage intracranial collection mass effect or midline shift. Preliminary report was submitted by [facility] Radiology contains concordant findings.
--- NOTE | 2018-05-20 08:41 | CP.CCUPN ---
<Bradley Cash - Last Filed: 05/20/18 11:00> CCU Subjective - Physician Review Subjective (Free Text): 05/20/18 08:37 Bradley Cash PGY Critical Care Progress Note Patient seen and examined at bedside this morning. Continues to be intubated and sedated on propofol and versed with vent settings of 35/5/16/400. EEG pending today. Started on keppra 750mg IV BID and depakote 750mg IV BID per neurology recommendations. 12 point ROS unobtainable due to patient status. CCU Objective - Vital Signs / Intake & Output Vital Signs (Last 4 hours): Vital Signs Pulse 05/20/18 06:00 95 H Intake and Output (Last 8hrs): Intake & Output 05/19/18 05/20/18 05/20/18 22:59 06:59 14:59 Intake Total 30 58 Output Total 400 Balance 30 -342 Weight 167 lb 166 lb Intake: IV 30 58 Right Hand 28 Right Upper arm 30 Oral 0 Output: Urine 400 2-way Urethral 400 Stool 0 Emesis 0 Other: Voiding Method Indwelling Catheter - Physical Exam Head: Positive for: Atraumatic, Normocephalic Pupils: Positive for: PERRL Conjunctiva: Positive for: Normal Mouth: Positive for: Moist Mucous Membranes Neck: Positive for: Normal Range of Motion Respiratory/Chest: Positive for: Clear to Auscultation, Good Air Exchange. Negative for: Respiratory Distress, Accessory Muscle Use Cardiovascular: Positive for: Tachycardic. Negative for: Murmurs Abdomen: Positive for: Other (soft). Negative for: Tenderness, Distention, Peritoneal Signs Back: Positive for: Normal Inspection Upper Extremity: Negative for: Cyanosis, Edema, Other (Not moving any extremities and no response to pain) Lower Extremity: Negative for: Edema, Other (Not moving any extremities and no response to pain) Neurological: Positive for: Other (sedated and intubated ) Skin: Positive for: Warm, Dry. Negative for: Rashes Psychiatric: Negative for: Alert - Medications Active Medications: Active Medications Generic Name Dose Route Start Last Admin Trade Name Freq PRN Reason Stop Dose Admin Albuterol/Ipratropium 3 ml 05/19/18 23:30 05/20/18 07:37 Duoneb 3 Mg/0.5 Mg (3 Ml) Ud IH 3 ml [id number] KADY Administration Albuterol/Ipratropium 3 ml 05/19/18 23:07 Duoneb 3 Mg/0.5 Mg (3 Ml) Ud IH Q2H PRN Shortness of Breath Sodium Chloride 1,000 mls @ 100 mls/hr 05/19/18 23:00 05/19/18 23:15 Sodium Chloride 0.9% IV 100 mls/hr .Q10H KADY Administration Midazolam 100 mg/100ml in NS 100 mg in 100 mls @ 1 mls/hr 05/19/18 22:54 05/20/18 00:28 Midazolam 100 Mg/100ml In Ns IV 5 mg/hr .Q24H PRN 5 mls/hr Sedation Titration Protocol 1 MG/HR Valproate Sodium 1,000 mg/ 110 mls @ 100 mls/hr 05/19/18 23:15 05/20/18 05:37 Sodium Chloride IVPB 100 mls/hr Q8 KADY Administration Propofol 1,000 mg in 100 mls @ 2.273 mls/hr 05/19/18 23:51 05/20/18 01:06 Diprivan IV 5 mcg/kg/min .Q24H PRN 2.273 mls/hr TITRATE PER MD ORDER Administration Protocol 5 MCG/KG/MIN - Patient Studies Lab Studies: Lab Studies 05/19/18 05/19/18 05/19/18 Range/Units 23:55 22:29 22:29 WBC (4.5-11.0) 10^3/uL RBC (3.5-6.1) 10^6/uL Hgb (12.0-16.0) g/dL Hct (36.0-48.0) % MCV (80.0-105.0) fl MCH (25.0-35.0) pg MCHC (31.0-37.0) g/dl RDW (11.5-14.5) % Plt Count (120.0-450.0) 10^3/uL MPV (7.0-11.0) fl Neut % (Auto) (50.0-68.0) % Lymph % (Auto) (22.0-35.0) % Mcpherson % (Auto) (1.0-6.0) % Eos % (Auto) (1.5-5.0) % Baso % (Auto) (0.0-3.0) % Lymph # (Auto) (1.2-3.4) Mc[place]son # (Auto) (0.1-0.6) Eos # (Auto) (0.0-0.7) Baso # (Auto) (0.0-2.0) K/mm3 Absolute Neuts (auto) (1.4-6.5) PT (9.4-12.5) SECONDS INR APTT (26.9-38.3) Seconds pCO2 31 L (35-45) mm/Hg pO2 233.0 H (80-100) mm/Hg HCO3 18.8 L (21-28) mmol/L ABG pH 7.39 (7.35-7.45) ABG Total CO2 19.8 L (22-28) mmol.L ABG O2 Saturation 100.0 H (95-98) % ABG O2 Content 13.1 L (15-23) ML/dl ABG Base Excess -5.4 L (-2.0-3.0) mmol/L ABG Hemoglobin 9.4 L (11.7-17.4) g/dL ABG Carboxyhemoglobin 3.5 H (0.5-1.5) % POC ABG HHb (Measured) 0 (0-5) % ABG Methemoglobin 2.1 (0.0-3.0) % ABG O2 Capacity 13.1 L (16-24) mL/dl Hgb O2 Saturation 94.3 L (95.0-98.0) % FiO2 100.0 % Sodium (132-148) mmol/L Potassium (3.6-5.0) mmol/L Chloride (98-107) mmol/L Carbon Dioxide (21-33) mmol/L Anion Gap (10-20) BUN (7-21) mg/dL Creatinine (0.7-1.2) mg/dl Est GFR ( Amer) Est GFR (Non-Af Amer) Random Glucose (70-110) mg/dL Calcium (8.4-10.5) mg/dL Phosphorus (2.5-4.5) mg/dL Magnesium (1.7-2.2) mg/dL Total Bilirubin (0.2-1.3) mg/dL AST (14-36) U/L ALT (7-56) U/L Alkaline Phosphatase (38-126) U/L Total Creatine Kinase 126 (35-230) U/L Total Protein (5.8-8.3) g/dL Albumin (3.0-4.8) g/dL Globulin gm/dL Albumin/Globulin Ratio (1.1-1.8) Urine Color (YELLOW) Urine Appearance (CLEAR) Urine pH (4.7-8.0) Ur Specific [place] (1.005-1.035) Urine Protein (<30 mg/dL) mg/dL Urine Glucose (UA) (NEGATIVE) mg/dL Urine Ketones (NEGATIVE) mg/dL Urine Blood (NEGATIVE) Urine Nitrate (NEGATIVE) Urine Bilirubin (NEGATIVE) Urine Urobilinogen (<1 E.U./dL) E.U./dL Ur Leukocyte Esterase (NEGATIVE) Maria Alejandra/uL Urine RBC (0-2) /hpf Urine WBC (0-6) /hpf Ur Epithelial Cells (0-5) /hpf Urine Opiates Screen Negative (NEGATIVE) Urine Methadone Screen Negative (NEGATIVE) Ur Barbiturates Screen Positive H (NEGATIVE) Ur Phencyclidine Scrn Negative (NEGATIVE) Ur Amphetamines Screen Negative (NEGATIVE) U Benzodiazepines Scrn Positive H (NEGATIVE) U Oth Cocaine Metabols Negative (NEGATIVE) U Cannabinoids Screen Positive H (NEGATIVE) 05/19/18 05/19/18 05/19/18 Range/Units 22:10 21:03 21:03 WBC (4.5-11.0) 10^3/uL RBC (3.5-6.1) 10^6/uL Hgb (12.0-16.0) g/dL Hct (36.0-48.0) % MCV (80.0-105.0) fl MCH (25.0-35.0) pg MCHC (31.0-37.0) g/dl RDW (11.5-14.5) % Plt Count (120.0-450.0) 10^3/uL MPV (7.0-11.0) fl Neut % (Auto) (50.0-68.0) % Lymph % (Auto) (22.0-35.0) % Mcpherson % (Auto) (1.0-6.0) % Eos % (Auto) (1.5-5.0) % Baso % (Auto) (0.0-3.0) % Lymph # (Auto) (1.2-3.4) Mc[place]son # (Auto) (0.1-0.6) Eos # (Auto) (0.0-0.7) Baso # (Auto) (0.0-2.0) K/mm3 Absolute Neuts (auto) (1.4-6.5) PT 12.0 (9.4-12.5) SECONDS INR 1.08 APTT 28.0 (26.9-38.3) Seconds pCO2 (35-45) mm/Hg pO2 (80-100) mm/Hg HCO3 (21-28) mmol/L ABG pH (7.35-7.45) ABG Total CO2 (22-28) mmol.L ABG O2 Saturation (95-98) % ABG O2 Content (15-23) ML/dl ABG Base Excess (-2.0-3.0) mmol/L ABG Hemoglobin (11.7-17.4) g/dL ABG Carboxyhemoglobin (0.5-1.5) % POC ABG HHb (Measured) (0-5) % ABG Methemoglobin (0.0-3.0) % ABG O2 Capacity (16-24) mL/dl Hgb O2 Saturation (95.0-98.0) % FiO2 % Sodium 141 (132-148) mmol/L Potassium 4.3 (3.6-5.0) mmol/L Chloride 108 H (98-107) mmol/L Carbon Dioxide 20 L (21-33) mmol/L Anion Gap 18 (10-20) BUN 6 L (7-21) mg/dL Creatinine 0.6 L (0.7-1.2) mg/dl Est GFR ( Amer) > 60 Est GFR (Non-Af Amer) > 60 Random Glucose 85 (70-110) mg/dL Calcium 9.4 (8.4-10.5) mg/dL Phosphorus 3.3 (2.5-4.5) mg/dL Magnesium 2.2 (1.7-2.2) mg/dL Total Bilirubin 0.5 (0.2-1.3) mg/dL AST 30 (14-36) U/L ALT 29 (7-56) U/L Alkaline Phosphatase 79 (38-126) U/L Total Creatine Kinase (35-230) U/L Total Protein 8.0 (5.8-8.3) g/dL Albumin 4.5 (3.0-4.8) g/dL Globulin 3.5 gm/dL Albumin/Globulin Ratio 1.3 (1.1-1.8) Urine Color Yellow (YELLOW) Urine Appearance Clear (CLEAR) Urine pH 6.0 (4.7-8.0) Ur Specific [place] >= 1.030 (1.005-1.035) Urine Protein Trace H (<30 mg/dL) mg/dL Urine Glucose (UA) Negative (NEGATIVE) mg/dL Urine Ketones Negative (NEGATIVE) mg/dL Urine Blood Trace-intact H (NEGATIVE) Urine Nitrate Negative (NEGATIVE) Urine Bilirubin Negative (NEGATIVE) Urine Urobilinogen 0.2 (<1 E.U./dL) E.U./dL Ur Leukocyte Esterase Negative (NEGATIVE) Maria Alejandra/uL Urine RBC 10 - 15 H (0-2) /hpf Urine WBC 5 - 10 H (0-6) /hpf Ur Epithelial Cells 6 - 8 H (0-5) /hpf Urine Opiates Screen (NEGATIVE) Urine Methadone Screen (NEGATIVE) Ur Barbiturates Screen (NEGATIVE) Ur Phencyclidine Scrn (NEGATIVE) Ur Amphetamines Screen (NEGATIVE) U Benzodiazepines Scrn (NEGATIVE) U Oth Cocaine Metabols (NEGATIVE) U Cannabinoids Screen (NEGATIVE) 05/19/18 Range/Units 21:03 WBC 9.5 D (4.5-11.0) 10^3/uL RBC 4.25 (3.5-6.1) 10^6/uL Hgb 14.0 (12.0-16.0) g/dL Hct 41.9 (36.0-48.0) % MCV 98.6 (80.0-105.0) fl MCH 32.9 (25.0-35.0) pg MCHC 33.4 (31.0-37.0) g/dl RDW 13.4 (11.5-14.5) % Plt Count 307 (120.0-450.0) 10^3/uL MPV 12.9 H (7.0-11.0) fl Neut % (Auto) 45.1 L (50.0-68.0) % Lymph % (Auto) 44.6 H (22.0-35.0) % Mcpherson % (Auto) 8.1 H (1.0-6.0) % Eos % (Auto) 1.9 (1.5-5.0) % Baso % (Auto) 0.3 (0.0-3.0) % Lymph # (Auto) 4.2 H (1.2-3.4) Mcpherson # (Auto) 0.8 H (0.1-0.6) Eos # (Auto) 0.2 (0.0-0.7) Baso # (Auto) 0.03 (0.0-2.0) K/mm3 Absolute Neuts (auto) 4.28 (1.4-6.5) PT (9.4-12.5) SECONDS INR APTT (26.9-38.3) Seconds pCO2 (35-45) mm/Hg pO2 (80-100) mm/Hg HCO3 (21-28) mmol/L ABG pH (7.35-7.45) ABG Total CO2 (22-28) mmol.L ABG O2 Saturation (95-98) % ABG O2 Content (15-23) ML/dl ABG Base Excess (-2.0-3.0) mmol/L ABG Hemoglobin (11.7-17.4) g/dL ABG Carboxyhemoglobin (0.5-1.5) % POC ABG HHb (Measured) (0-5) % ABG Methemoglobin (0.0-3.0) % ABG O2 Capacity (16-24) mL/dl Hgb O2 Saturation (95.0-98.0) % FiO2 % Sodium (132-148) mmol/L Potassium (3.6-5.0) mmol/L Chloride (98-107) mmol/L Carbon Dioxide (21-33) mmol/L Anion Gap (10-20) BUN (7-21) mg/dL Creatinine (0.7-1.2) mg/dl Est GFR ( Amer) Est GFR (Non-Af Amer) Random Glucose (70-110) mg/dL Calcium (8.4-10.5) mg/dL Phosphorus (2.5-4.5) mg/dL Magnesium (1.7-2.2) mg/dL Total Bilirubin (0.2-1.3) mg/dL AST (14-36) U/L ALT (7-56) U/L Alkaline Phosphatase (38-126) U/L Total Creatine Kinase (35-230) U/L Total Protein (5.8-8.3) g/dL Albumin (3.0-4.8) g/dL Globulin gm/dL Albumin/Globulin Ratio (1.1-1.8) Urine Color (YELLOW) Urine Appearance (CLEAR) Urine pH (4.7-8.0) Ur Specific [place] (1.005-1.035) Urine Protein (<30 mg/dL) mg/dL Urine Glucose (UA) (NEGATIVE) mg/dL Urine Ketones (NEGATIVE) mg/dL Urine Blood (NEGATIVE) Urine Nitrate (NEGATIVE) Urine Bilirubin (NEGATIVE) Urine Urobilinogen (<1 E.U./dL) E.U./dL Ur Leukocyte Esterase (NEGATIVE) Maria Alejandra/uL Urine RBC (0-2) /hpf Urine WBC (0-6) /hpf Ur Epithelial Cells (0-5) /hpf Urine Opiates Screen (NEGATIVE) Urine Methadone Screen (NEGATIVE) Ur Barbiturates Screen (NEGATIVE) Ur Phencyclidine Scrn (NEGATIVE) Ur Amphetamines Screen (NEGATIVE) U Benzodiazepines Scrn (NEGATIVE) U Oth Cocaine Metabols (NEGATIVE) U Cannabinoids Screen (NEGATIVE) Laboratory Results - last 24 hr 05/19/18 05/19/18 05/19/18 21:03 21:03 21:03 WBC 9.5 D RBC 4.25 Hgb 14.0 Hct 41.9 MCV 98.6 MCH 32.9 MCHC 33.4 RDW 13.4 Plt Count 307 MPV 12.9 H Neut % (Auto) 45.1 L Lymph % (Auto) 44.6 H Mcpherson % (Auto) 8.1 H Eos % (Auto) 1.9 Baso % (Auto) 0.3 Lymph # (Auto) 4.2 H Mcpherson # (Auto) 0.8 H Eos # (Auto) 0.2 Baso # (Auto) 0.03 Absolute Neuts (auto) 4.28 PT 12.0 INR 1.08 APTT 28.0 pCO2 pO2 HCO3 ABG pH ABG Total CO2 ABG O2 Saturation ABG O2 Content ABG Base Excess ABG Hemoglobin ABG Carboxyhemoglobin POC ABG HHb (Measured) ABG Methemoglobin ABG O2 Capacity Hgb O2 Saturation FiO2 Sodium 141 Potassium 4.3 Chloride 108 H Carbon Dioxide 20 L Anion Gap 18 BUN 6 L Creatinine 0.6 L Est GFR ( Amer) > 60 Est GFR (Non-Af Amer) > 60 Random Glucose 85 Calcium 9.4 Phosphorus 3.3 Magnesium 2.2 Total Bilirubin 0.5 AST 30 ALT 29 Alkaline Phosphatase 79 Total Creatine Kinase Total Protein 8.0 Albumin 4.5 Globulin 3.5 Albumin/Globulin Ratio 1.3 Urine Color Urine Appearance Urine pH Ur Specific [place] Urine Protein Urine Glucose (UA) Urine Ketones Urine Blood Urine Nitrate Urine Bilirubin Urine Urobilinogen Ur Leukocyte Esterase Urine RBC Urine WBC Ur Epithelial Cells Urine Opiates Screen Urine Methadone Screen Ur Barbiturates Screen Ur Phencyclidine Scrn Ur Amphetamines Screen U Benzodiazepines Scrn U Oth Cocaine Metabols U Cannabinoids Screen 05/19/18 05/19/18 05/19/18 22:10 22:29 22:29 WBC RBC Hgb Hct MCV MCH MCHC RDW Plt Count MPV Neut % (Auto) Lymph % (Auto) Mcpherson % (Auto) Eos % (Auto) Baso % (Auto) Lymph # (Auto) Mcpherson # (Auto) Eos # (Auto) Baso # (Auto) Absolute Neuts (auto) PT INR APTT pCO2 pO2 HCO3 ABG pH ABG Total CO2 ABG O2 Saturation ABG O2 Content ABG Base Excess ABG Hemoglobin ABG Carboxyhemoglobin POC ABG HHb (Measured) ABG Methemoglobin ABG O2 Capacity Hgb O2 Saturation FiO2 Sodium Potassium Chloride Carbon Dioxide Anion Gap BUN Creatinine Est GFR ( Amer) Est GFR (Non-Af Amer) Random Glucose Calcium Phosphorus Magnesium Total Bilirubin AST ALT Alkaline Phosphatase Total Creatine Kinase 126 Total Protein Albumin Globulin Albumin/Globulin Ratio Urine Color Yellow Urine Appearance Clear Urine pH 6.0 Ur Specific [place] >= 1.030 Urine Protein Trace H Urine Glucose (UA) Negative Urine Ketones Negative Urine Blood Trace-intact H Urine Nitrate Negative Urine Bilirubin Negative Urine Urobilinogen 0.2 Ur Leukocyte Esterase Negative Urine RBC 10 - 15 H Urine WBC 5 - 10 H Ur Epithelial Cells 6 - 8 H Urine Opiates Screen Negative Urine Methadone Screen Negative Ur Barbiturates Screen Positive H Ur Phencyclidine Scrn Negative Ur Amphetamines Screen Negative U Benzodiazepines Scrn Positive H U Oth Cocaine Metabols Negative U Cannabinoids Screen Positive H 05/19/18 23:55 WBC RBC Hgb Hct MCV MCH MCHC RDW Plt Count MPV Neut % (Auto) Lymph % (Auto) Mcpherson % (Auto) Eos % (Auto) Baso % (Auto) Lymph # (Auto) Mcpherson # (Auto) Eos # (Auto) Baso # (Auto) Absolute Neuts (auto) PT INR APTT pCO2 31 L pO2 233.0 H HCO3 18.8 L ABG pH 7.39 ABG Total CO2 19.8 L ABG O2 Saturation 100.0 H ABG O2 Content 13.1 L ABG Base Excess -5.4 L ABG Hemoglobin 9.4 L ABG Carboxyhemoglobin 3.5 H POC ABG HHb (Measured) 0 ABG Methemoglobin 2.1 ABG O2 Capacity 13.1 L Hgb O2 Saturation 94.3 L FiO2 100.0 Sodium Potassium Chloride Carbon Dioxide Anion Gap BUN Creatinine Est GFR ( Amer) Est GFR (Non-Af Amer) Random Glucose Calcium Phosphorus Magnesium Total Bilirubin AST ALT Alkaline Phosphatase Total Creatine Kinase Total Protein Albumin Globulin Albumin/Globulin Ratio Urine Color Urine Appearance Urine pH Ur Specific [place] Urine Protein Urine Glucose (UA) Urine Ketones Urine Blood Urine Nitrate Urine Bilirubin Urine Urobilinogen Ur Leukocyte Esterase Urine RBC Urine WBC Ur Epithelial Cells Urine Opiates Screen Urine Methadone Screen Ur Barbiturates Screen Ur Phencyclidine Scrn Ur Amphetamines Screen U Benzodiazepines Scrn U Oth Cocaine Metabols U Cannabinoids Screen Radiology Impressions: Radiology Impressions Head CT 05/19/18 21:01 IMPRESSION: No evidence of acute intracranial hemorrhage intracranial collection mass effect or midline shift. Preliminary report was submitted by [facility] contains concordant findings. EKG/Cardiology Studies: Cardiology / EKG Studies 05/19/18 20:47 ELECTROCARDIOGRAM Stat Comment: Reason For Exam: SEIZURES Assessment/Plan - Assessment and Plan (Free Text) Assessment: 38 F with pertinent medical history of epilepsy and medication non compliance who presented to the ED on 05/19/18 for unwitnessed seizure and found to be in status epilepticus in the ED. Patient subsequently intubated and sedated after poor response with ativan and versed. Currently under ICU management due to status epilepticus and continues to be intubated and sedated due to inability to protect airway. Medication non compliance IBS Endometriosis Asthma Diverticulitis Plan: - Maintain normothermia, euglycemia, euvolemia, MAP>65, SaO2>92% - Started on keppra and depakote 750mg IV BID as per neurology recommendations - EEG planned for today - Will consider extubation trial if EEG is unremarkable - Head CT was negative for an acute process, however patient patient is on Flexeril, Remeron, and Amytryptyline, all of which lower seizure threshold. - UDS positive for cannabinoids, benzo and barbituates - lamictal level pending - U/A shows trace blood/protein, 10-15 RBC, 5-10 WBC, 6-8 epithelial cells concerning for dirty catch - Monitor electrolytes - afebrile, no WBC. Low suspicion for infectious etiology - Neurology on consult - Keep sedated with Versed/propofol - Duonebs for Asthma - Admit to MICU Patient seen and case discussed with attending, Dr. Parra <Karen Parra - Last Filed: 05/20/18 17:39> CCU Objective - Vital Signs / Intake & Output Vital Signs (Last 4 hours): Vital Signs Temp Pulse BP 05/20/18 16:24 99.4 F 05/20/18 16:20 109 H 05/20/18 16:10 107 H 05/20/18 16:00 104 H 129/73 05/20/18 15:50 117 H 05/20/18 15:40 108 H 05/20/18 15:30 99 H 05/20/18 15:20 92 H 05/20/18 15:10 94 H 05/20/18 15:00 95 H 109/59 L 05/20/18 14:50 98 H 05/20/18 14:40 97 H 05/20/18 14:30 98 H 05/20/18 14:20 98 H 05/20/18 14:10 98 H 05/20/18 14:00 102 H 115/69 05/20/18 13:50 91 H 05/20/18 13:40 93 H Intake and Output (Last 8hrs): Intake & Output 05/20/18 05/20/18 05/20/18 06:59 14:59 22:59 Intake Total 58 200 100 Output Total 400 Balance -342 200 100 Weight 75.296 kg Intake: IV 58 200 100 Right Hand 28 Right Upper arm 30 Oral 0 Output: Urine 400 2-way Urethral 400 Stool 0 Emesis 0 Other: Voiding Method Indwelling Catheter - Medications Active Medications: Active Medications Generic Name Dose Route Start Last Admin Trade Name Freq PRN Reason Stop Dose Admin Albuterol/Ipratropium 3 ml 05/19/18 23:30 05/20/18 15:31 Duoneb 3 Mg/0.5 Mg (3 Ml) Ud IH 3 ml [id number] KADY Administration Albuterol/Ipratropium 3 ml 05/19/18 23:07 Duoneb 3 Mg/0.5 Mg (3 Ml) Ud IH Q2H PRN Shortness of Breath Sodium Chloride 1,000 mls @ 100 mls/hr 05/19/18 23:00 05/20/18 11:03 Sodium Chloride 0.9% IV 100 mls/hr .Q10H KADY Administration Midazolam 100 mg/100ml in NS 100 mg in 100 mls @ 1 mls/hr 05/19/18 22:54 05/20/18 17:09 Midazolam 100 Mg/100ml In Ns IV 5 mg/hr .Q24H PRN 5 mls/hr Sedation Administration Protocol 1 MG/HR Propofol 1,000 mg in 100 mls @ 2.273 mls/hr 05/19/18 23:51 05/20/18 13:46 Diprivan IV 40 mcg/kg/min .Q24H PRN 18.18 mls/hr TITRATE PER MD ORDER Administration Protocol 5 MCG/KG/MIN Levetiracetam 750 mg/ Sodium 107.5 mls @ 215 mls/hr 05/20/18 11:00 05/20/18 11:56 Chloride IVPB 215 mls/hr Q12 KADY Administration Valproate Sodium 750 mg/ 107.5 mls @ 100 mls/hr 05/20/18 11:00 05/20/18 11:56 Sodium Chloride IVPB 100 mls/hr Q12 KADY Administration Levofloxacin/Dextrose 750 mg in 150 mls @ 100 mls/hr 05/20/18 15:22 05/20/18 17:12 Levaquin 750mg IVPB 100 mls/hr Q24H KADY Administration Protocol - Patient Studies Lab Studies: Lab Studies 05/19/18 05/19/18 05/19/18 Range/Units 23:55 22:29 22:29 WBC (4.5-11.0) 10^3/uL RBC (3.5-6.1) 10^6/uL Hgb (12.0-16.0) g/dL Hct (36.0-48.0) % MCV (80.0-105.0) fl MCH (25.0-35.0) pg MCHC (31.0-37.0) g/dl RDW (11.5-14.5) % Plt Count (120.0-450.0) 10^3/uL MPV (7.0-11.0) fl Neut % (Auto) (50.0-68.0) % Lymph % (Auto) (22.0-35.0) % [place] % (Auto) (1.0-6.0) % Eos % (Auto) (1.5-5.0) % Baso % (Auto) (0.0-3.0) % Lymph # (Auto) (1.2-3.4) [place] # (Auto) (0.1-0.6) Eos # (Auto) (0.0-0.7) Baso # (Auto) (0.0-2.0) K/mm3 Absolute Neuts (auto) (1.4-6.5) PT (9.4-12.5) SECONDS INR APTT (26.9-38.3) Seconds pCO2 31 L (35-45) mm/Hg pO2 233.0 H (80-100) mm/Hg HCO3 18.8 L (21-28) mmol/L ABG pH 7.39 (7.35-7.45) ABG Total CO2 19.8 L (22-28) mmol.L ABG O2 Saturation 100.0 H (95-98) % ABG O2 Content 13.1 L (15-23) ML/dl ABG Base Excess -5.4 L (-2.0-3.0) mmol/L ABG Hemoglobin 9.4 L (11.7-17.4) g/dL ABG Carboxyhemoglobin 3.5 H (0.5-1.5) % POC ABG HHb (Measured) 0 (0-5) % ABG Methemoglobin 2.1 (0.0-3.0) % ABG O2 Capacity 13.1 L (16-24) mL/dl Hgb O2 Saturation 94.3 L (95.0-98.0) % FiO2 100.0 % Sodium (132-148) mmol/L Potassium (3.6-5.0) mmol/L Chloride (98-107) mmol/L Carbon Dioxide (21-33) mmol/L Anion Gap (10-20) BUN (7-21) mg/dL Creatinine (0.7-1.2) mg/dl Est GFR ( Amer) Est GFR (Non-Af Amer) Random Glucose (70-110) mg/dL Calcium (8.4-10.5) mg/dL Phosphorus (2.5-4.5) mg/dL Magnesium (1.7-2.2) mg/dL Total Bilirubin (0.2-1.3) mg/dL AST (14-36) U/L ALT (7-56) U/L Alkaline Phosphatase (38-126) U/L Total Creatine Kinase 126 (35-230) U/L Total Protein (5.8-8.3) g/dL Albumin (3.0-4.8) g/dL Globulin gm/dL Albumin/Globulin Ratio (1.1-1.8) Urine Color (YELLOW) Urine Appearance (CLEAR) Urine pH (4.7-8.0) Ur Specific [place] (1.005-1.035) Urine Protein (<30 mg/dL) mg/dL Urine Glucose (UA) (NEGATIVE) mg/dL Urine Ketones (NEGATIVE) mg/dL Urine Blood (NEGATIVE) Urine Nitrate (NEGATIVE) Urine Bilirubin (NEGATIVE) Urine Urobilinogen (<1 E.U./dL) E.U./dL Ur Leukocyte Esterase (NEGATIVE) Maria Alejandra/uL Urine RBC (0-2) /hpf Urine WBC (0-6) /hpf Ur Epithelial Cells (0-5) /hpf Urine Opiates Screen Negative (NEGATIVE) Urine Methadone Screen Negative (NEGATIVE) Ur Barbiturates Screen Positive H (NEGATIVE) Ur Phencyclidine Scrn Negative (NEGATIVE) Ur Amphetamines Screen Negative (NEGATIVE) U Benzodiazepines Scrn Positive H (NEGATIVE) U Oth Cocaine Metabols Negative (NEGATIVE) U Cannabinoids Screen Positive H (NEGATIVE) 01/25/19 01/25/19 01/25/19 Range/Units 22:10 21:03 21:03 WBC (4.5-11.0) 10^3/uL RBC (3.5-6.1) 10^6/uL Hgb (12.0-16.0) g/dL Hct (36.0-48.0) % MCV (80.0-105.0) fl MCH (25.0-35.0) pg MCHC (31.0-37.0) g/dl RDW (11.5-14.5) % Plt Count (120.0-450.0) 10^3/uL MPV (7.0-11.0) fl Neut % (Auto) (50.0-68.0) % Lymph % (Auto) (22.0-35.0) % Mcpherson % (Auto) (1.0-6.0) % Eos % (Auto) (1.5-5.0) % Baso % (Auto) (0.0-3.0) % Lymph # (Auto) (1.2-3.4) Mcpherson # (Auto) (0.1-0.6) Eos # (Auto) (0.0-0.7) Baso # (Auto) (0.0-2.0) K/mm3 Absolute Neuts (auto) (1.4-6.5) PT 12.0 (9.4-12.5) SECONDS INR 1.08 APTT 28.0 (26.9-38.3) Seconds pCO2 (35-45) mm/Hg pO2 (80-100) mm/Hg HCO3 (21-28) mmol/L ABG pH (7.35-7.45) ABG Total CO2 (22-28) mmol.L ABG O2 Saturation (95-98) % ABG O2 Content (15-23) ML/dl ABG Base Excess (-2.0-3.0) mmol/L ABG Hemoglobin (11.7-17.4) g/dL ABG Carboxyhemoglobin (0.5-1.5) % POC ABG HHb (Measured) (0-5) % ABG Methemoglobin (0.0-3.0) % ABG O2 Capacity (16-24) mL/dl Hgb O2 Saturation (95.0-98.0) % FiO2 % Sodium 141 (132-148) mmol/L Potassium 4.3 (3.6-5.0) mmol/L Chloride 108 H (98-107) mmol/L Carbon Dioxide 20 L (21-33) mmol/L Anion Gap 18 (10-20) BUN 6 L (7-21) mg/dL Creatinine 0.6 L (0.7-1.2) mg/dl Est GFR ( Amer) > 60 Est GFR (Non-Af Amer) > 60 Random Glucose 85 (70-110) mg/dL Calcium 9.4 (8.4-10.5) mg/dL Phosphorus 3.3 (2.5-4.5) mg/dL Magnesium 2.2 (1.7-2.2) mg/dL Total Bilirubin 0.5 (0.2-1.3) mg/dL AST 30 (14-36) U/L ALT 29 (7-56) U/L Alkaline Phosphatase 79 (38-126) U/L Total Creatine Kinase (35-230) U/L Total Protein 8.0 (5.8-8.3) g/dL Albumin 4.5 (3.0-4.8) g/dL Globulin 3.5 gm/dL Albumin/Globulin Ratio 1.3 (1.1-1.8) Urine Color Yellow (YELLOW) Urine Appearance Clear (CLEAR) Urine pH 6.0 (4.7-8.0) Ur Specific [place] >= 1.030 (1.005-1.035) Urine Protein Trace H (<30 mg/dL) mg/dL Urine Glucose (UA) Negative (NEGATIVE) mg/dL Urine Ketones Negative (NEGATIVE) mg/dL Urine Blood Trace-intact H (NEGATIVE) Urine Nitrate Negative (NEGATIVE) Urine Bilirubin Negative (NEGATIVE) Urine Urobilinogen 0.2 (<1 E.U./dL) E.U./dL Ur Leukocyte Esterase Negative (NEGATIVE) Maria Alejandra/uL Urine RBC 10 - 15 H (0-2) /hpf Urine WBC 5 - 10 H (0-6) /hpf Ur Epithelial Cells 6 - 8 H (0-5) /hpf Urine Opiates Screen (NEGATIVE) Urine Methadone Screen (NEGATIVE) Ur Barbiturates Screen (NEGATIVE) Ur Phencyclidine Scrn (NEGATIVE) Ur Amphetamines Screen (NEGATIVE) U Benzodiazepines Scrn (NEGATIVE) U Oth Cocaine Metabols (NEGATIVE) U Cannabinoids Screen (NEGATIVE) 05/19/18 Range/Units 21:03 WBC 9.5 D (4.5-11.0) 10^3/uL RBC 4.25 (3.5-6.1) 10^6/uL Hgb 14.0 (12.0-16.0) g/dL Hct 41.9 (36.0-48.0) % MCV 98.6 (80.0-105.0) fl MCH 32.9 (25.0-35.0) pg MCHC 33.4 (31.0-37.0) g/dl RDW 13.4 (11.5-14.5) % Plt Count 307 (120.0-450.0) 10^3/uL MPV 12.9 H (7.0-11.0) fl Neut % (Auto) 45.1 L (50.0-68.0) % Lymph % (Auto) 44.6 H (22.0-35.0) % Mcpherson % (Auto) 8.1 H (1.0-6.0) % Eos % (Auto) 1.9 (1.5-5.0) % Baso % (Auto) 0.3 (0.0-3.0) % Lymph # (Auto) 4.2 H (1.2-3.4) Mcpherson # (Auto) 0.8 H (0.1-0.6) Eos # (Auto) 0.2 (0.0-0.7) Baso # (Auto) 0.03 (0.0-2.0) K/mm3 Absolute Neuts (auto) 4.28 (1.4-6.5) PT (9.4-12.5) SECONDS INR APTT (26.9-38.3) Seconds pCO2 (35-45) mm/Hg pO2 (80-100) mm/Hg HCO3 (21-28) mmol/L ABG pH (7.35-7.45) ABG Total CO2 (22-28) mmol.L ABG O2 Saturation (95-98) % ABG O2 Content (15-23) ML/dl ABG Base Excess (-2.0-3.0) mmol/L ABG Hemoglobin (11.7-17.4) g/dL ABG Carboxyhemoglobin (0.5-1.5) % POC ABG HHb (Measured) (0-5) % ABG Methemoglobin (0.0-3.0) % ABG O2 Capacity (16-24) mL/dl Hgb O2 Saturation (95.0-98.0) % FiO2 % Sodium (132-148) mmol/L Potassium (3.6-5.0) mmol/L Chloride (98-107) mmol/L Carbon Dioxide (21-33) mmol/L Anion Gap (10-20) BUN (7-21) mg/dL Creatinine (0.7-1.2) mg/dl Est GFR ( Amer) Est GFR (Non-Af Amer) Random Glucose (70-110) mg/dL Calcium (8.4-10.5) mg/dL Phosphorus (2.5-4.5) mg/dL Magnesium (1.7-2.2) mg/dL Total Bilirubin (0.2-1.3) mg/dL AST (14-36) U/L ALT (7-56) U/L Alkaline Phosphatase (38-126) U/L Total Creatine Kinase (35-230) U/L Total Protein (5.8-8.3) g/dL Albumin (3.0-4.8) g/dL Globulin gm/dL Albumin/Globulin Ratio (1.1-1.8) Urine Color (YELLOW) Urine Appearance (CLEAR) Urine pH (4.7-8.0) Ur Specific [place] (1.005-1.035) Urine Protein (<30 mg/dL) mg/dL Urine Glucose (UA) (NEGATIVE) mg/dL Urine Ketones (NEGATIVE) mg/dL Urine Blood (NEGATIVE) Urine Nitrate (NEGATIVE) Urine Bilirubin (NEGATIVE) Urine Urobilinogen (<1 E.U./dL) E.U./dL Ur Leukocyte Esterase (NEGATIVE) Maria Alejandra/uL Urine RBC (0-2) /hpf Urine WBC (0-6) /hpf Ur Epithelial Cells (0-5) /hpf Urine Opiates Screen (NEGATIVE) Urine Methadone Screen (NEGATIVE) Ur Barbiturates Screen (NEGATIVE) Ur Phencyclidine Scrn (NEGATIVE) Ur Amphetamines Screen (NEGATIVE) U Benzodiazepines Scrn (NEGATIVE) U Oth Cocaine Metabols (NEGATIVE) U Cannabinoids Screen (NEGATIVE) Laboratory Results - last 24 hr 05/19/18 05/19/18 05/19/18 21:03 21:03 21:03 WBC 9.5 D RBC 4.25 Hgb 14.0 Hct 41.9 MCV 98.6 MCH 32.9 MCHC 33.4 RDW 13.4 Plt Count 307 MPV 12.9 H Neut % (Auto) 45.1 L Lymph % (Auto) 44.6 H [place] % (Auto) 8.1 H Eos % (Auto) 1.9 Baso % (Auto) 0.3 Lymph # (Auto) 4.2 H [place] # (Auto) 0.8 H Eos # (Auto) 0.2 Baso # (Auto) 0.03 Absolute Neuts (auto) 4.28 PT 12.0 INR 1.08 APTT 28.0 pCO2 pO2 HCO3 ABG pH ABG Total CO2 ABG O2 Saturation ABG O2 Content ABG Base Excess ABG Hemoglobin ABG Carboxyhemoglobin POC ABG HHb (Measured) ABG Methemoglobin ABG O2 Capacity Hgb O2 Saturation FiO2 Sodium 141 Potassium 4.3 Chloride 108 H Carbon Dioxide 20 L Anion Gap 18 BUN 6 L Creatinine 0.6 L Est GFR ( Amer) > 60 Est GFR (Non-Af Amer) > 60 Random Glucose 85 Calcium 9.4 Phosphorus 3.3 Magnesium 2.2 Total Bilirubin 0.5 AST 30 ALT 29 Alkaline Phosphatase 79 Total Creatine Kinase Total Protein 8.0 Albumin 4.5 Globulin 3.5 Albumin/Globulin Ratio 1.3 Urine Color Urine Appearance Urine pH Ur Specific [place] Urine Protein Urine Glucose (UA) Urine Ketones Urine Blood Urine Nitrate Urine Bilirubin Urine Urobilinogen Ur Leukocyte Esterase Urine RBC Urine WBC Ur Epithelial Cells Urine Opiates Screen Urine Methadone Screen Ur Barbiturates Screen Ur Phencyclidine Scrn Ur Amphetamines Screen U Benzodiazepines Scrn U Oth Cocaine Metabols U Cannabinoids Screen 05/19/18 05/19/18 05/19/18 22:10 22:29 22:29 WBC RBC Hgb Hct MCV MCH MCHC RDW Plt Count MPV Neut % (Auto) Lymph % (Auto) [place] % (Auto) Eos % (Auto) Baso % (Auto) Lymph # (Auto) [place] # (Auto) Eos # (Auto) Baso # (Auto) Absolute Neuts (auto) PT INR APTT pCO2 pO2 HCO3 ABG pH ABG Total CO2 ABG O2 Saturation ABG O2 Content ABG Base Excess ABG Hemoglobin ABG Carboxyhemoglobin POC ABG HHb (Measured) ABG Methemoglobin ABG O2 Capacity Hgb O2 Saturation FiO2 Sodium Potassium Chloride Carbon Dioxide Anion Gap BUN Creatinine Est GFR ( Amer) Est GFR (Non-Af Amer) Random Glucose Calcium Phosphorus Magnesium Total Bilirubin AST ALT Alkaline Phosphatase Total Creatine Kinase 126 Total Protein Albumin Globulin Albumin/Globulin Ratio Urine Color Yellow Urine Appearance Clear Urine pH 6.0 Ur Specific [place] >= 1.030 Urine Protein Trace H Urine Glucose (UA) Negative Urine Ketones Negative Urine Blood Trace-intact H Urine Nitrate Negative Urine Bilirubin Negative Urine Urobilinogen 0.2 Ur Leukocyte Esterase Negative Urine RBC 10 - 15 H Urine WBC 5 - 10 H Ur Epithelial Cells 6 - 8 H Urine Opiates Screen Negative Urine Methadone Screen Negative Ur Barbiturates Screen Positive H Ur Phencyclidine Scrn Negative Ur Amphetamines Screen Negative U Benzodiazepines Scrn Positive H U Oth Cocaine Metabols Negative U Cannabinoids Screen Positive H 05/19/18 23:55 WBC RBC Hgb Hct MCV MCH MCHC RDW Plt Count MPV Neut % (Auto) Lymph % (Auto) [place] % (Auto) Eos % (Auto) Baso % (Auto) Lymph # (Auto) [place] # (Auto) Eos # (Auto) Baso # (Auto) Absolute Neuts (auto) PT INR APTT pCO2 31 L pO2 233.0 H HCO3 18.8 L ABG pH 7.39 ABG Total CO2 19.8 L ABG O2 Saturation 100.0 H ABG O2 Content 13.1 L ABG Base Excess -5.4 L ABG Hemoglobin 9.4 L ABG Carboxyhemoglobin 3.5 H POC ABG HHb (Measured) 0 ABG Methemoglobin 2.1 ABG O2 Capacity 13.1 L Hgb O2 Saturation 94.3 L FiO2 100.0 Sodium Potassium Chloride Carbon Dioxide Anion Gap BUN Creatinine Est GFR ( Amer) Est GFR (Non-Af Amer) Random Glucose Calcium Phosphorus Magnesium Total Bilirubin AST ALT Alkaline Phosphatase Total Creatine Kinase Total Protein Albumin Globulin Albumin/Globulin Ratio Urine Color Urine Appearance Urine pH Ur Specific [place] Urine Protein Urine Glucose (UA) Urine Ketones Urine Blood Urine Nitrate Urine Bilirubin Urine Urobilinogen Ur Leukocyte Esterase Urine RBC Urine WBC Ur Epithelial Cells Urine Opiates Screen Urine Methadone Screen Ur Barbiturates Screen Ur Phencyclidine Scrn Ur Amphetamines Screen U Benzodiazepines Scrn U Oth Cocaine Metabols U Cannabinoids Screen Radiology Impressions: Radiology Impressions Head CT 05/19/18 21:01 IMPRESSION: No evidence of acute intracranial hemorrhage intracranial collection mass effect or midline shift. Preliminary report was submitted by [facility] Radiology contains concordant findings. Chest X-Ray 05/19/18 21:11 IMPRESSION: Possible small opacity or infiltrate at the left lower lobe. EKG/Cardiology Studies: Cardiology / EKG Studies 05/19/18 20:47 ELECTROCARDIOGRAM Stat Comment: Reason For Exam: SEIZURES Addendum Addendum: 05/20/18 17:39 MICU Attending Addendum: Patient seen and examined with housestaff. Agree with note above with the following additions/exceptions: 38F with epilepsy and hx of non compliance p/w status epilepticus now intubated. Neuro on board managing epilepsy with dual therpay (Keppra and Depakote). Will f.u EEG. Plan to wean sedation and SBT trial in AM with plan to extubate if not seizure events overnight. Duoneds for asthma Rest of care as above Karen Parra MD MICU Attending
--- NOTE | 2018-05-20 09:19 | RAD ---
Date of service: 05/19/2018 HISTORY: intubation COMPARISON: No prior. FINDINGS: LUNGS: There is a questionable consolidation or infiltrate at the left lower lung. The ET tube is seen at appropriate position. PLEURA: No significant pleural effusion identified, no pneumothorax apparent. CARDIOVASCULAR: No aortic atherosclerotic calcification present. Normal cardiac size. No pulmonary vascular congestion. OSSEOUS STRUCTURES: No significant abnormalities. VISUALIZED UPPER ABDOMEN: Normal. OTHER FINDINGS: None. IMPRESSION: Possible small opacity or infiltrate at the left lower lobe.
[2018-05-20] MEDS: Sodium Chloride 0.9% 1,000 ML IV SCH (11:03)
[2018-05-20] MEDS: Valproate 750 MG in Sodium Chloride 0.9% 100 ML IVPB SCH ×2 (11:56→21:09)
[2018-05-20] MEDS ORDERED: levoFLOXacin 750 mg in D5W 750 MG/150 ML BAG IVPB SCH (15:22)
[2018-05-20] MEDS: Midazolam 100 mg/100ml in NS 100 MG/100 ML SOL IV PRN (17:09)
--- NOTE | 2018-05-20 18:53 | CARD ---
APPROVED REPORT Date of service: 05/19/2018 EKG Measurement Heart [id number] <Conclusion> Sinus tachycardia Nonspecific ST abnormality Abnormal ECG
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
[2018-05-21] MEDS: Sodium Chloride 0.9% 1,000 ML IV SCH ×2 (00:44→05:04)
[2018-05-21] MEDS: Albuterol-Ipratrop 3 mg / 0.5 (3 ml) UD IH SCH ×3 (03:03→11:04)
[2018-05-21] MEDS: Propofol 10 mg/ml 1,000 MG/100 ML VIAL IV PRN (05:04)
[2018-05-21 05:22] LABS: ARTERIAL BLOOD GAS HCO3 25.7 mmol/L (21-28); ARTERIAL BLOOD GAS HEMOGLOBIN 11.1 g/dL (11.7-17.4); ARTERIAL BLOOD GAS O2 CAPACITY 15.4 mL/dl (16-24); ARTERIAL BLOOD GAS O2 CONTENT 15.4 ML/dl (15-23); ARTERIAL BLOOD GAS O2 SAT 99.8 % (95-98); ARTERIAL BLOOD GAS PCO2 37 mm/Hg (35-45); ARTERIAL BLOOD GAS PH 7.45 (7.35-7.45); ARTERIAL BLOOD GAS TCO2 26.8 mmol.L (22-28)
--- NOTE | 2018-05-21 07:39 | CP.CCUPN ---
<Bradley Cash - Last Filed: 05/21/18 13:33> CCU Subjective - Physician Review Subjective (Free Text): Bradley Cash PGY Critical Care Progress Note Patient seen and examined at bedside this morning. No acute events reported overnight. Intubated and sedated on propofol and versed with vent settings of 35/5/16/400. Will wean sedation and attempt extubation trial today. 12 point ROS unobtainable due to patient status. CCU Objective - Vital Signs / Intake & Output Intake and Output (Last 8hrs): Intake & Output 05/20/18 05/21/18 05/21/18 22:59 06:59 14:59 Intake Total 1778 100 Output Total 1100 Balance 678 100 Intake: IV 1778 100 propofol 218 saline 1200 versed 60 Output: Urine 1100 2-way Urethral 1100 Stool 0 - Physical Exam Head: Positive for: Atraumatic, Normocephalic Pupils: Positive for: PERRL Extroacular Muscles: Positive for: EOMI Conjunctiva: Positive for: Normal Mouth: Positive for: Moist Mucous Membranes Neck: Positive for: Normal Range of Motion Respiratory/Chest: Positive for: Clear to Auscultation, Good Air Exchange, Other (intubated ). Negative for: Respiratory Distress, Accessory Muscle Use Cardiovascular: Positive for: Tachycardic. Negative for: Murmurs Abdomen: Positive for: Other (soft). Negative for: Tenderness, Distention, Peritoneal Signs Back: Positive for: Normal Inspection Upper Extremity: Negative for: Cyanosis, Edema, Other (Not moving any extremities and no response to pain) Lower Extremity: Negative for: Edema, Other (Not moving any extremities and no response to pain) Neurological: Positive for: Other (sedated and intubated ) Skin: Positive for: Warm, Dry. Negative for: Rashes Psychiatric: Negative for: Alert - Medications Active Medications: Active Medications Generic Name Dose Route Start Last Admin Trade Name Freq PRN Reason Stop Dose Admin Albuterol/Ipratropium 3 ml 05/19/18 23:30 05/21/18 03:03 Duoneb 3 Mg/0.5 Mg (3 Ml) Ud IH 3 ml [id number] KADY Administration Albuterol/Ipratropium 3 ml 05/19/18 23:07 Duoneb 3 Mg/0.5 Mg (3 Ml) Ud IH Q2H PRN Shortness of Breath Sodium Chloride 1,000 mls @ 100 mls/hr 05/19/18 23:00 05/21/18 05:04 Sodium Chloride 0.9% IV 100 mls/hr .Q10H KADY Administration Midazolam 100 mg/100ml in NS 100 mg in 100 mls @ 1 mls/hr 05/19/18 22:54 05/20/18 17:09 Midazolam 100 Mg/100ml In Ns IV 5 mg/hr .Q24H PRN 5 mls/hr Sedation Administration Protocol 1 MG/HR Propofol 1,000 mg in 100 mls @ 2.273 mls/hr 05/19/18 23:51 05/21/18 05:04 Diprivan IV 50 mcg/kg/min .Q24H PRN 22.725 mls/hr TITRATE PER MD ORDER Administration Protocol 5 MCG/KG/MIN Levetiracetam 750 mg/ Sodium 107.5 mls @ 215 mls/hr 05/20/18 11:00 05/20/18 21:08 Chloride IVPB 215 mls/hr Q12 KADY Administration Valproate Sodium 750 mg/ 107.5 mls @ 100 mls/hr 05/20/18 11:00 05/20/18 21:09 Sodium Chloride IVPB 100 mls/hr Q12 KADY Administration Levofloxacin/Dextrose 750 mg in 150 mls @ 100 mls/hr 05/20/18 15:22 05/20/18 17:12 Levaquin 750mg IVPB 100 mls/hr Q24H KADY Administration Protocol Lorazepam 4 mg 05/20/18 21:27 05/20/18 21:58 Ativan IVP 4 mg Q6H PRN Administration Agitation Protocol - Patient Studies Lab Studies: Lab Studies 05/21/18 Range/Units 05:15 pCO2 37 (35-45) mm/Hg pO2 138.0 H (80-100) mm/Hg HCO3 25.7 (21-28) mmol/L ABG pH 7.45 (7.35-7.45) ABG Total CO2 26.8 (22-28) mmol.L ABG O2 Saturation 99.8 H (95-98) % ABG O2 Content 15.4 (15-23) ML/dl ABG Base Excess 1.8 (-2.0-3.0) mmol/L ABG Hemoglobin 11.1 L (11.7-17.4) g/dL ABG Carboxyhemoglobin 1.7 H (0.5-1.5) % POC ABG HHb (Measured) 0.2 (0-5) % ABG Methemoglobin 1.2 (0.0-3.0) % ABG O2 Capacity 15.4 L (16-24) mL/dl Hgb O2 Saturation 96.9 (95.0-98.0) % FiO2 35.0 % Laboratory Results - last 24 hr 05/21/18 05:15 pCO2 37 pO2 138.0 H HCO3 25.7 ABG pH 7.45 ABG Total CO2 26.8 ABG O2 Saturation 99.8 H ABG O2 Content 15.4 ABG Base Excess 1.8 ABG Hemoglobin 11.1 L ABG Carboxyhemoglobin 1.7 H POC ABG HHb (Measured) 0.2 ABG Methemoglobin 1.2 ABG O2 Capacity 15.4 L Hgb O2 Saturation 96.9 FiO2 35.0 Radiology Impressions: Radiology Impressions Head CT 05/19/18 21:01 IMPRESSION: No evidence of acute intracranial hemorrhage intracranial collection mass effect or midline shift. Preliminary report was submitted by [facility] Radiology contains concordant findings. Chest X-Ray 05/19/18 21:11 IMPRESSION: Possible small opacity or infiltrate at the left lower lobe. Assessment/Plan - Assessment and Plan (Free Text) Assessment: 38 F with pertinent medical history of epilepsy and medication non compliance who presented to the ED on 05/19/18 for unwitnessed seizure and found to be in status epilepticus in the ED. Patient subsequently intubated and sedated after poor response with ativan and versed. Currently under ICU management due to status epilepticus and continues to be intubated and sedated due to inability to protect airway. Will wean sedation and attempt extubation trial today. Medication non compliance IBS Endometriosis Asthma Diverticulitis Plan: - Maintain normothermia, euglycemia, euvolemia, MAP>65, SaO2>92% - continue keppra and depakote 750mg IV BID as per neurology recommendations - will wean sedation and attempt extubation trial today - EEG is unremarkable, as per neurology - Head CT was negative for an acute process, however patient patient is on Flexeril, Remeron, and Amytryptyline, all of which lower seizure threshold. - UDS positive for cannabinoids, benzo and barbituates - lamictal level is pending - U/A shows trace blood/protein, 10-15 RBC, 5-10 WBC, 6-8 epithelial cells concerning for dirty catch - Monitor electrolytes - afebrile, no WBC. Low suspicion for infectious etiology at this time - Neurology on consult - Duonebs for Asthma - Admit to MICU Patient seen and case discussed with attending, Dr. Parra <Karen Parra - Last Filed: 05/21/18 15:02> CCU Objective - Vital Signs / Intake & Output Intake and Output (Last 8hrs): Intake & Output 05/20/18 05/21/18 05/21/18 22:59 06:59 14:59 Intake Total 1778 1578 155 Output Total 1100 650 Balance 678 928 155 Weight 75.296 kg Intake: IV 1778 1578 155 propofol 218 218 saline 1200 1200 versed 60 60 Oral 0 Output: Urine 1100 650 2-way Urethral 1100 650 Stool 0 0 Emesis 0 - Medications Active Medications: Active Medications Generic Name Dose Route Start Last Admin Trade Name Freq PRN Reason Stop Dose Admin Albuterol/Ipratropium 3 ml 05/19/18 23:30 05/21/18 11:04 Duoneb 3 Mg/0.5 Mg (3 Ml) Ud IH 3 ml [id number] KADY Administration Albuterol/Ipratropium 3 ml 05/19/18 23:07 Duoneb 3 Mg/0.5 Mg (3 Ml) Ud IH Q2H PRN Shortness of Breath Enoxaparin Sodium 40 mg 05/21/18 11:00 05/21/18 11:52 Lovenox SC 40 mg DAILY KADY Administration Protocol Sodium Chloride 1,000 mls @ 100 mls/hr 05/19/18 23:00 05/21/18 05:04 Sodium Chloride 0.9% IV 100 mls/hr .Q10H KADY Administration Midazolam 100 mg/100ml in NS 100 mg in 100 mls @ 1 mls/hr 05/19/18 22:54 05/21/18 08:54 Midazolam 100 Mg/100ml In Ns IV 0 mg/hr .Q24H PRN 0 mls/hr Sedation Titration Protocol 1 MG/HR Propofol 1,000 mg in 100 mls @ 2.273 mls/hr 05/19/18 23:51 05/21/18 11:43 Diprivan IV 0 mcg/kg/min .Q24H PRN 0 mls/hr TITRATE PER MD ORDER Titration Protocol 5 MCG/KG/MIN Levetiracetam 750 mg/ Sodium 107.5 mls @ 215 mls/hr 05/20/18 11:00 05/21/18 09:50 Chloride IVPB 215 mls/hr Q12 KADY Administration Valproate Sodium 750 mg/ 107.5 mls @ 100 mls/hr 05/20/18 11:00 05/21/18 09:50 Sodium Chloride IVPB 100 mls/hr Q12 KADY Administration Levofloxacin/Dextrose 750 mg in 150 mls @ 100 mls/hr 05/20/18 15:22 05/20/18 17:12 Levaquin 750mg IVPB 100 mls/hr Q24H KADY Administration Protocol Lorazepam 4 mg 05/20/18 21:27 05/21/18 10:01 Ativan IVP 4 mg Q6H PRN Administration Agitation Protocol Pantoprazole Sodium 40 mg 05/21/18 11:00 05/21/18 11:52 Protonix Inj IVP 40 mg DAILY KADY Administration - Patient Studies Lab Studies: Microbiology Studies 05/20/18 04:15 MRSA Culture (Admit) - Final Naris MRSA NOT DETECTED 05/19/18 22:52 Urine Culture - Final Urine,Clean Catch No Growth (<1,000 CFU/ML) Lab Studies 05/21/18 05/21/18 05/21/18 Range/Units 08:00 08:00 05:15 WBC 8.7 (4.5-11.0) 10^3/uL RBC 3.76 (3.5-6.1) 10^6/uL Hgb 12.0 D (12.0-16.0) g/dL Hct 36.5 (36.0-48.0) % MCV 97.1 (80.0-105.0) fl MCH 31.9 (25.0-35.0) pg MCHC 32.9 (31.0-37.0) g/dl RDW 13.1 (11.5-14.5) % Plt Count 226 (120.0-450.0) 10^3/uL MPV 11.6 H (7.0-11.0) fl Neut % (Auto) 58.1 (50.0-68.0) % Lymph % (Auto) 29.3 (22.0-35.0) % [place] % (Auto) 11.3 H (1.0-6.0) % Eos % (Auto) 1.1 L (1.5-5.0) % Baso % (Auto) 0.2 (0.0-3.0) % Lymph # (Auto) 2.6 (1.2-3.4) [place] # (Auto) 1.0 H (0.1-0.6) Eos # (Auto) 0.1 (0.0-0.7) Baso # (Auto) 0.02 (0.0-2.0) K/mm3 Absolute Neuts (auto) 5.05 (1.4-6.5) pCO2 37 (35-45) mm/Hg pO2 138.0 H (80-100) mm/Hg HCO3 25.7 (21-28) mmol/L ABG pH 7.45 (7.35-7.45) ABG Total CO2 26.8 (22-28) mmol.L ABG O2 Saturation 99.8 H (95-98) % ABG O2 Content 15.4 (15-23) ML/dl ABG Base Excess 1.8 (-2.0-3.0) mmol/L ABG Hemoglobin 11.1 L (11.7-17.4) g/dL ABG Carboxyhemoglobin 1.7 H (0.5-1.5) % POC ABG HHb (Measured) 0.2 (0-5) % ABG Methemoglobin 1.2 (0.0-3.0) % ABG O2 Capacity 15.4 L (16-24) mL/dl Hgb O2 Saturation 96.9 (95.0-98.0) % FiO2 35.0 % Sodium 140 (132-148) mmol/L Potassium 3.5 L (3.6-5.0) mmol/L Chloride 111 H (98-107) mmol/L Carbon Dioxide 24 (21-33) mmol/L Anion Gap 8 L (10-20) BUN 3 L (7-21) mg/dL Creatinine 0.5 L (0.7-1.2) mg/dl Est GFR ( Amer) > 60 Est GFR (Non-Af Amer) > 60 Random Glucose 98 (70-110) mg/dL Calcium 8.6 (8.4-10.5) mg/dL Phosphorus 4.0 (2.5-4.5) mg/dL Magnesium 2.3 H (1.7-2.2) mg/dL Total Bilirubin 0.2 (0.2-1.3) mg/dL AST 16 (14-36) U/L ALT 27 (7-56) U/L Alkaline Phosphatase 84 (38-126) U/L Total Protein 6.1 (5.8-8.3) g/dL Albumin 3.3 (3.0-4.8) g/dL Globulin 2.8 gm/dL Albumin/Globulin Ratio 1.2 (1.1-1.8) Laboratory Results - last 24 hr 05/21/18 05/21/18 05/21/18 05:15 08:00 08:00 WBC 8.7 RBC 3.76 Hgb 12.0 D Hct 36.5 MCV 97.1 MCH 31.9 MCHC 32.9 RDW 13.1 Plt Count 226 MPV 11.6 H Neut % (Auto) 58.1 Lymph % (Auto) 29.3 [place] % (Auto) 11.3 H Eos % (Auto) 1.1 L Baso % (Auto) 0.2 Lymph # (Auto) 2.6 [place] # (Auto) 1.0 H Eos # (Auto) 0.1 Baso # (Auto) 0.02 Absolute Neuts (auto) 5.05 pCO2 37 pO2 138.0 H HCO3 25.7 ABG pH 7.45 ABG Total CO2 26.8 ABG O2 Saturation 99.8 H ABG O2 Content 15.4 ABG Base Excess 1.8 ABG Hemoglobin 11.1 L ABG Carboxyhemoglobin 1.7 H POC ABG HHb (Measured) 0.2 ABG Methemoglobin 1.2 ABG O2 Capacity 15.4 L Hgb O2 Saturation 96.9 FiO2 35.0 Sodium 140 Potassium 3.5 L Chloride 111 H Carbon Dioxide 24 Anion Gap 8 L BUN 3 L Creatinine 0.5 L Est GFR ( Amer) > 60 Est GFR (Non-Af Amer) > 60 Random Glucose 98 Calcium 8.6 Phosphorus 4.0 Magnesium 2.3 H Total Bilirubin 0.2 AST 16 ALT 27 Alkaline Phosphatase 84 Total Protein 6.1 Albumin 3.3 Globulin 2.8 Albumin/Globulin Ratio 1.2 Radiology Impressions: Radiology Impressions Chest X-Ray 05/21/18 05:18 IMPRESSION: No evidence of new infiltrate or consolidation in the lungs. Appropriate position of the ETT. Addendum Addendum: 05/21/18 14:59 MICU Attending Addendum: Patient seen and examined with housestaff. Agree with note above with the following additions/exceptions: 38F with epilepsy and hx of non compliance p/w status epilepticus now intubated. Neuro on board Shortly after stopping sedation patient appeared to have seizure like activity as per nursing staff ativan given unfortuntayely EEG was already completed by then d/w Dr Hamilton this AM who arrived at bedside her impressione is these a pseudo-seizures weaned sedatoin again late in the day once patient was awake and alert she was extubated resting comfortably now, in fact askign to go home f/u neuro recs of epilepsy tx Rest of care as above Karen Parra MD MICU Attending CC Time 31 mins
[2018-05-21 07:54] VITALS: BP 116/57; O2SAT 100
[2018-05-21 08:13] LABS: BASO # 0.02 K/mm3 (0.0-2.0); BASO % 0.2 % (0.0-3.0); EOS # 0.1 (0.0-0.7); EOS % 1.1 % (1.5-5.0); LYMPH # 2.6 (1.2-3.4); LYMPH % 29.3 % (22.0-35.0); MEAN CELL VOLUME 97.1 fl (80.0-105.0); MEAN CORPUSCULAR HEMOGLOBIN 31.9 pg (25.0-35.0); MEAN CORPUSCULAR HGB CONC 32.9 g/dl (31.0-37.0); MEAN PLATELET VOLUME 11.6 fl (7.0-11.0); MONO % 11.3 % (1.0-6.0); RBC 3.76 10^6/uL (3.5-6.1); RED CELL DISTRIBUTION WIDTH 13.1 % (11.5-14.5); WHITE BLOOD COUNT 8.7 10^3/uL (4.5-11.0)
[2018-05-21 08:37] LABS: ALB/GLOB RATIO 1.2 (1.1-1.8); ALBUMIN 3.3 g/dL (3.0-4.8); ALT/SGPT 27 U/L (7-56); AST/SGOT 16 U/L (14-36); BLOOD UREA NITROGEN 3 mg/dL (7-21); CALCIUM 8.6 mg/dL (8.4-10.5); GFR NON-AFRICAN AMERICAN > 60
[2018-05-21] MEDS: Valproate 750 MG in Sodium Chloride 0.9% 100 ML IVPB SCH (09:50)
--- NOTE | 2018-05-21 10:15 | CP.PCM.PN ---
<Alejandro Hough - Last Filed: 05/21/18 10:39> Subjective - Date & Time of Evaluation Date of Evaluation: 05/21/18 Time of Evaluation: 09:59 - Subjective Subjective: INTERNAL MEDICINE PROGRESS NOTE FOR DR. THI Hough PGY1 Pt seen and examined at bedside in the ICU. No acute nursing events overnight. Pt currently sedated & intubated on PRVC 16/400/5/35. Currently on propofol & midazolam. Video EEG in process. 12 point ROS unattainable d/t sedation. Objective - Vital Signs/Intake and Output Vital Signs (last 24 hours): Temp Pulse Resp BP Pulse Ox 97.5 F L 92 H 16 116/57 L 100 05/21/18 07:50 05/21/18 07:50 05/20/18 07:40 05/21/18 07:32 05/21/18 07:50 Intake and Output: 05/21/18 05/21/18 06:59 18:59 Intake Total 1678 120 Output Total 650 Balance 1028 120 - Medications Medications: Current Medications Albuterol/Ipratropium (Duoneb 3 Mg/0.5 Mg (3 Ml) Ud) 3 ml IH [id number] [facility] Last Admin: 05/21/18 07:41 Dose: 3 ml Albuterol/Ipratropium (Duoneb 3 Mg/0.5 Mg (3 Ml) Ud) 3 ml IH Q2H PRN PRN Reason: Shortness of Breath Sodium Chloride (Sodium Chloride 0.9%) 1,000 mls @ 100 mls/hr IV .Q10H [facility] Last Admin: 05/21/18 05:04 Dose: 100 mls/hr Midazolam 100 mg/100ml in NS (Midazolam 100 Mg/100ml In Ns) 100 mg in 100 mls @ 1 mls/hr IV .Q24H PRN; Protocol PRN Reason: Sedation Last Titration: 05/21/18 08:54 Dose: 0 mg/hr, 0 mls/hr Propofol (Diprivan) 1,000 mg in 100 mls @ 2.273 mls/hr IV .Q24H PRN; Protocol PRN Reason: TITRATE PER MD ORDER Last Titration: 05/21/18 08:40 Dose: 25 mcg/kg/min, 11.363 mls/hr Levetiracetam 750 mg/ Sodium (Chloride) 107.5 mls @ 215 mls/hr IVPB Q12 KADY Last Admin: 05/20/18 21:08 Dose: 215 mls/hr Valproate Sodium 750 mg/ (Sodium Chloride) 107.5 mls @ 100 mls/hr IVPB Q12 KADY Last Admin: 05/20/18 21:09 Dose: 100 mls/hr Levofloxacin/Dextrose (Levaquin 750mg) 750 mg in 150 mls @ 100 mls/hr IVPB Q24H KADY; Protocol Last Admin: 05/20/18 17:12 Dose: 100 mls/hr Potassium Chloride (Potassium Chloride 10 Meq/100 Ml) 10 meq in 100 mls @ 50 mls/hr IVPB ONCE ONE Stop: 05/21/18 10:41 Lorazepam (Ativan) 4 mg IVP Q6H PRN; Protocol PRN Reason: Agitation Last Admin: 05/20/18 21:58 Dose: 4 mg - Labs Labs: 05/21/18 08:00 05/21/18 08:00 PT 12.0 SECONDS (9.4-12.5) 05/19/18 21:03 INR 1.08 05/19/18 21:03 APTT 28.0 Seconds (26.9-38.3) 05/19/18 21:03 - Constitutional Appears: Well, Non-toxic, No Acute Distress - Head Exam Head Exam: NORMAL INSPECTION, NORMOCEPHALIC - Eye Exam Eye Exam: Normal appearance - Neck Exam Neck Exam: Normal Inspection - Respiratory Exam Respiratory Exam: Clear to Ausculation Bilateral Additional comments: Intubated on ventilator - Cardiovascular Exam Cardiovascular Exam: REGULAR RHYTHM, +S1, +S2 - GI/Abdominal Exam GI & Abdominal Exam: Soft. absent: Tenderness - Extremities Exam Extremities Exam: Normal Inspection. absent: Calf Tenderness - Back Exam Back Exam: NORMAL INSPECTION - Neurological Exam Additional comments: sedated - Skin Skin Exam: Dry, Intact, Warm Assessment and Plan - Assessment and Plan (Free Text) Assessment: 38 y/o F with PMHx epilepsy, chronic abdominal pain and multiple psychiatric disorder presented to ED s/p unwitnessed seizure uncontrolled with ativan. Pt admitted to ICU for management of status epilepticus requiring intubation, c urrently in post-ictal state Plan: Status Epilepticus currently controlled with 5 mcg/kg/min propofol & midazolam @1mg/hr continue video EEG in process continue keppra 750mg Q12h continue valproate 750mg extubation trial today by ICU team neurology following, appreciate recs L lower lobe infiltrate no leukocytosis, afebrile continue levofloxacin asthma continue duoneb treatment hx of psychiatric disorders previously on flexeril, remeron, amytriptyline: seizure lowering medications consult psychiatry for medical reconciliation f/u lamotrigine level DVT/GI PPx: Lovenox/protonix Case seen, examined and discussed with attending physician, Dr. Thi Hough PGY1 <Alva Nguyen - Last Filed: 05/21/18 12:24> Objective - Vital Signs/Intake and Output Vital Signs (last 24 hours): Temp Pulse Resp BP Pulse Ox 97.5 F L 99 H 16 116/57 L 100 05/21/18 07:50 05/21/18 10:00 05/20/18 07:40 05/21/18 07:32 05/21/18 07:50 Intake and Output: 05/21/18 05/21/18 06:59 18:59 Intake Total 1678 155 Output Total 650 Balance 1028 155 - Medications Medications: Current Medications Albuterol/Ipratropium (Duoneb 3 Mg/0.5 Mg (3 Ml) Ud) 3 ml IH [id number] KADY Last Admin: 05/21/18 11:04 Dose: 3 ml Albuterol/Ipratropium (Duoneb 3 Mg/0.5 Mg (3 Ml) Ud) 3 ml IH Q2H PRN PRN Reason: Shortness of Breath Enoxaparin Sodium (Lovenox) 40 mg SC DAILY KADY; Protocol Last Admin: 05/21/18 11:52 Dose: 40 mg Sodium Chloride (Sodium Chloride 0.9%) 1,000 mls @ 100 mls/hr IV .Q10H KADY Last Admin: 05/21/18 05:04 Dose: 100 mls/hr Midazolam 100 mg/100ml in NS (Midazolam 100 Mg/100ml In Ns) 100 mg in 100 mls @ 1 mls/hr IV .Q24H PRN; Protocol PRN Reason: Sedation Last Titration: 05/21/18 08:54 Dose: 0 mg/hr, 0 mls/hr Propofol (Diprivan) 1,000 mg in 100 mls @ 2.273 mls/hr IV .Q24H PRN; Protocol PRN Reason: TITRATE PER MD ORDER Last Titration: 05/21/18 11:43 Dose: 0 mcg/kg/min, 0 mls/hr Levetiracetam 750 mg/ Sodium (Chloride) 107.5 mls @ 215 mls/hr IVPB Q12 KADY Last Admin: 05/21/18 09:50 Dose: 215 mls/hr Valproate Sodium 750 mg/ (Sodium Chloride) 107.5 mls @ 100 mls/hr IVPB Q12 KADY Last Admin: 05/21/18 09:50 Dose: 100 mls/hr Levofloxacin/Dextrose (Levaquin 750mg) 750 mg in 150 mls @ 100 mls/hr IVPB Q24H KADY; Protocol Last Admin: 05/20/18 17:12 Dose: 100 mls/hr Lorazepam (Ativan) 4 mg IVP Q6H PRN; Protocol PRN Reason: Agitation Last Admin: 05/21/18 10:01 Dose: 4 mg Pantoprazole Sodium (Protonix Inj) 40 mg IVP DAILY KADY Last Admin: 05/21/18 11:52 Dose: 40 mg - Labs Labs: 05/21/18 08:00 05/21/18 08:00 PT 12.0 SECONDS (9.4-12.5) 05/19/18 21:03 INR 1.08 05/19/18 21:03 APTT 28.0 Seconds (26.9-38.3) 05/19/18 21:03 Attending/Attestation - Attestation I have personally seen and examined this patient.: Yes I have fully participated in the care of the patient.: Yes I have reviewed all pertinent clinical information, including history, physical exam and plan: Yes Notes (Text): 05/21/18 12:19 Attending note; Patient seen and examined with resident in ICU. Currently patient is intubated. On propofol and Versed. Patient has video EEG monitoring by the bedside. No significant seizure like activity noted. Patient is a 38-year-old female with PMHx epilepsy, opiate abuse , marijuana abuse , chronic benzo dependency ,chronic abdominal pain and multiple psychiatric disorder presented to ED s/p unwitnessed seizure uncontrolled with ativan. Pt admitted to ICU for management of status epilepticus requiring intubation. 1. Status epilepticus; currently patient is intubated and sedated. Continue IV Versed. On video EEG monitor. Continue IV Keppra and Depakote. Will follow-up with neurology closely. 2. History of psychiatric disorder; patient is on multiple psych medication. We'll follow up with psychiatrist closely once extubated. 3. History of marijuana abuse. 4. Chronic benzo dependency. 5. Noncompliance with medication follow-up. We will educate the patient about drug abuse cessation and medication compliance once awake. Patient needs close follow-up with neurology and psychiatrist as outpatient. Follow-up with PMD at [facility].
[2018-05-21] MEDS ORDERED: Enoxaparin 40 mg Syringe SC SCH (11:00)
--- NOTE | 2018-05-21 13:02 | RAD ---
Date of service: 05/21/2018 HISTORY: intubated COMPARISON: Comparison is made with 05/19/2018 FINDINGS: LUNGS: No evidence of new infiltrate or consolidation in the lungs. The ET tube is seen in place. PLEURA: No significant pleural effusion identified, no pneumothorax apparent. CARDIOVASCULAR: No aortic atherosclerotic calcification present. Normal cardiac size. No pulmonary vascular congestion. OSSEOUS STRUCTURES: No significant abnormalities. VISUALIZED UPPER ABDOMEN: Normal. OTHER FINDINGS: None. IMPRESSION: No evidence of new infiltrate or consolidation in the lungs. Appropriate position of the ETT.
--- NOTE | 2018-05-21 13:05 | CP.PCM.PCO ---
Physician Communication Note - Physician Communication Note Physician Communication Note: pt is intubated, medical team will reconsult when pt will be extubated
[2018-05-21] MEDS ORDERED: levETIRAcetam 500mg IVPB 500 MG/100 ML BAG IV STA (13:13)
--- NOTE | 2018-05-21 15:40 | CP.PCM.DIS ---
<Alejandro Hough - Last Filed: 05/21/18 15:23> Provider - Provider Date of Admission: 05/19/18 22:03 Attending physician: Alva Nguyen MD Consults: 05/19/18 22:56 Neurology Consult Stat Comment: Consulting Provider: Chip Hamilton Consulting Physician: Chip Hamilton Reason for Consult: status eplipeticus requiring intubation 05/20/18 10:37 Psychiatry Consult Routine Comment: Consulting Provider: Loly Florence Consulting Physician: Loly Florence Reason for Consult: hx of depression, multiple psych meds, pls reconcile Time Spent in preparation of Discharge (in minutes): 45 Diagnosis - Discharge Diagnosis (1) Status epilepticus Status: Resolved Hospital Course - Lab Results Lab Results: Micro Results 05/20/18 04:15 Naris MRSA Culture (Admit) - Final MRSA NOT DETECTED 05/19/18 22:52 Urine,Clean Catch Urine Culture - Final No Growth (<1,000 CFU/ML) Most Recent Lab Values WBC 8.7 10^3/uL (4.5-11.0) 05/21/18 08:00 RBC 3.76 10^6/uL (3.5-6.1) 05/21/18 08:00 Hgb 12.0 g/dL (12.0-16.0) D 05/21/18 08:00 Hct 36.5 % (36.0-48.0) 05/21/18 08:00 MCV 97.1 fl (80.0-105.0) 05/21/18 08:00 MCH 31.9 pg (25.0-35.0) 05/21/18 08:00 MCHC 32.9 g/dl (31.0-37.0) 05/21/18 08:00 RDW 13.1 % (11.5-14.5) 05/21/18 08:00 Plt Count 226 10^3/uL (120.0-450.0) 05/21/18 08:00 MPV 11.6 fl (7.0-11.0) H 05/21/18 08:00 Neut % (Auto) 58.1 % (50.0-68.0) 05/21/18 08:00 Lymph % (Auto) 29.3 % (22.0-35.0) 05/21/18 08:00 Hardin % (Auto) 11.3 % (1.0-6.0) H 05/21/18 08:00 Eos % (Auto) 1.1 % (1.5-5.0) L 05/21/18 08:00 Baso % (Auto) 0.2 % (0.0-3.0) 05/21/18 08:00 Lymph # (Auto) 2.6 (1.2-3.4) 05/21/18 08:00 Hardin # (Auto) 1.0 (0.1-0.6) H 05/21/18 08:00 Eos # (Auto) 0.1 (0.0-0.7) 05/21/18 08:00 Baso # (Auto) 0.02 K/mm3 (0.0-2.0) 05/21/18 08:00 Absolute Neuts (auto) 5.05 (1.4-6.5) 05/21/18 08:00 PT 12.0 SECONDS (9.4-12.5) 05/19/18 21:03 INR 1.08 05/19/18 21:03 APTT 28.0 Seconds (26.9-38.3) 05/19/18 21:03 pCO2 37 mm/Hg (35-45) 05/21/18 05:15 pO2 138.0 mm/Hg (80-100) H 05/21/18 05:15 HCO3 25.7 mmol/L (21-28) 05/21/18 05:15 ABG pH 7.45 (7.35-7.45) 05/21/18 05:15 ABG Total CO2 26.8 mmol.L (22-28) 05/21/18 05:15 ABG O2 Saturation 99.8 % (95-98) H 05/21/18 05:15 ABG O2 Content 15.4 ML/dl (15-23) 05/21/18 05:15 ABG Base Excess 1.8 mmol/L (-2.0-3.0) 05/21/18 05:15 ABG Hemoglobin 11.1 g/dL (11.7-17.4) L 05/21/18 05:15 ABG Carboxyhemoglobin 1.7 % (0.5-1.5) H 05/21/18 05:15 POC ABG HHb (Measured) 0.2 % (0-5) 05/21/18 05:15 ABG Methemoglobin 1.2 % (0.0-3.0) 05/21/18 05:15 ABG O2 Capacity 15.4 mL/dl (16-24) L 05/21/18 05:15 Hgb O2 Saturation 96.9 % (95.0-98.0) 05/21/18 05:15 FiO2 35.0 % 05/21/18 05:15 Sodium 140 mmol/L (132-148) 05/21/18 08:00 Potassium 3.5 mmol/L (3.6-5.0) L 05/21/18 08:00 Chloride 111 mmol/L (98-107) H 05/21/18 08:00 Carbon Dioxide 24 mmol/L (21-33) 05/21/18 08:00 Anion Gap 8 (10-20) L 05/21/18 08:00 BUN 3 mg/dL (7-21) L 05/21/18 08:00 Creatinine 0.5 mg/dl (0.7-1.2) L 05/21/18 08:00 Est GFR ( Amer) > 60 05/21/18 08:00 Est GFR (Non-Af Amer) > 60 05/21/18 08:00 Random Glucose 98 mg/dL (70-110) 05/21/18 08:00 Calcium 8.6 mg/dL (8.4-10.5) 05/21/18 08:00 Phosphorus 4.0 mg/dL (2.5-4.5) 05/21/18 08:00 Magnesium 2.3 mg/dL (1.7-2.2) H 05/21/18 08:00 Total Bilirubin 0.2 mg/dL (0.2-1.3) 05/21/18 08:00 AST 16 U/L (14-36) 05/21/18 08:00 ALT 27 U/L (7-56) 05/21/18 08:00 Alkaline Phosphatase 84 U/L (38-126) 05/21/18 08:00 Total Creatine Kinase 126 U/L (35-230) 05/19/18 22:29 Total Protein 6.1 g/dL (5.8-8.3) 05/21/18 08:00 Albumin 3.3 g/dL (3.0-4.8) 05/21/18 08:00 Globulin 2.8 gm/dL 05/21/18 08:00 Albumin/Globulin Ratio 1.2 (1.1-1.8) 05/21/18 08:00 Urine Color Yellow (YELLOW) 05/19/18 22:10 Urine Appearance Clear (CLEAR) 05/19/18 22:10 Urine pH 6.0 (4.7-8.0) 05/19/18 22:10 Ur Specific [place] >= 1.030 (1.005-1.035) 05/19/18 22:10 Urine Protein Trace mg/dL (<30 mg/dL) H 05/19/18 22:10 Urine Glucose (UA) Negative mg/dL (NEGATIVE) 05/19/18 22:10 Urine Ketones Negative mg/dL (NEGATIVE) 05/19/18 22:10 Urine Blood Trace-intact (NEGATIVE) H 05/19/18 22:10 Urine Nitrate Negative (NEGATIVE) 05/19/18 22:10 Urine Bilirubin Negative (NEGATIVE) 05/19/18 22:10 Urine Urobilinogen 0.2 E.U./dL (<1 E.U./dL) 05/19/18 22:10 Ur Leukocyte Esterase Negative Maria Alejandra/uL (NEGATIVE) 05/19/18 22:10 Urine RBC 10 - 15 /hpf (0-2) H 05/19/18 22:10 Urine WBC 5 - 10 /hpf (0-6) H 05/19/18 22:10 Ur Epithelial Cells 6 - 8 /hpf (0-5) H 05/19/18 22:10 Urine Opiates Screen Negative (NEGATIVE) 05/19/18 22:29 Urine Methadone Screen Negative (NEGATIVE) 05/19/18 22:29 Ur Barbiturates Screen Positive (NEGATIVE) H 05/19/18 22:29 Ur Phencyclidine Scrn Negative (NEGATIVE) 05/19/18 22:29 Ur Amphetamines Screen Negative (NEGATIVE) 05/19/18 22:29 U Benzodiazepines Scrn Positive (NEGATIVE) H 05/19/18 22:29 U Oth Cocaine Metabols Negative (NEGATIVE) 05/19/18 22:29 U Cannabinoids Screen Positive (NEGATIVE) H 05/19/18 22:29 - Hospital Course Hospital Course: Upon Admission: 38 F with pertinent medical history of epilepsy presents to [facility] s/p a witnessed seizure by her blind friend (Main). Mr. Quach was called for more history, but he states that he is blind, so did not actually witness the seizure, he just heard her seizing. He states that patient may have had recent change to her medications, and that her sister, Abida, has more information regarding this ( she was called, but no answer ). Main states that patient was cooking dinner when the seizures started. Her , Milton, is out of town. Patient was given ativan in the ED, which did not break her seizures, and was ultimately intubated with propofol drip. Hospital Course: Pt given loading dose of keppra, depakote, sedated with propofol & midazolam and transferred to ICU for status epilepticus and failure to protect airway. Pt remained intubated on ventilator support. Neurology was consulted who recommended continuin keppra/depakote and ordered video EEG which was conducted. She was found to have a L lower lobe infiltrate which was treated with levofloxacin. Pt tolerated extubation trial and was extubated on 05/21. Day of discharge: After patient was extubated, pt requested multiple times to sign out against medical advice. Pt's decision making capacity was assessed thoroughly. Patient was AxO x3 and demonstrated appropriate decision making capacity. Pt was explained, in great detail, about risks of signing out AMA, benefits of treatment in the hospital and alternatives. She was able to describe her current medical problems, listed treatment options offered, including no treatment, named risks and benefits of each alternative, including no treatment, and retained information disclosed during the course of the conversation. She explained risks,benefits and alternatives of treatments vs no treatment. Her ambulation was assessed and patient ambulated without difficulty or gait disturbance. Pt verbalized that she has an appointment with her neurologist, Dr. Mora on 05/22/17. She also reports she has followup with her PMD at [facility]. She reported that she has a safe home environment and will ar range for transportation home Discharge Exam - Head Exam Head Exam: NORMAL INSPECTION, NORMOCEPHALIC - Eye Exam Eye Exam: EOMI, Normal appearance - ENT Exam ENT Exam: Normal Exam - Neck Exam Neck exam: Normal Inspection - Respiratory Exam Respiratory Exam: NORMAL BREATHING PATTERN - Cardiovascular Exam Cardiovascular Exam: Tachycardia - Neurological Exam Neurological exam: Alert, Normal Gait, Oriented x3 - Psychiatric Exam Psychiatric exam: Normal Affect, Normal Mood Additional comments: no suicidal/homicidal ideations Discharge Plan - Follow Up Plan Condition: GOOD Disposition: AGAINST MEDICAL ADVICE Instructions: Epilepsy (DC), Epilepsy (GEN) <Alva Nguyen - Last Filed: 05/24/18 15:43> Provider - Provider Date of Admission: 05/19/18 22:03 Attending physician: Alva Nguyen MD Consults: 05/19/18 22:56 Neurology Consult Stat Comment: Consulting Provider: Chip Hamilton Consulting Physician: Chip Hamilton Reason for Consult: status eplipeticus requiring intubation 05/20/18 10:37 Psychiatry Consult Routine Comment: Consulting Provider: Loly Florence Consulting Physician: Loly Florence Reason for Consult: hx of depression, multiple psych meds, pls reconcile Hospital Course - Lab Results Lab Results: Micro Results 05/20/18 04:15 Naris MRSA Culture (Admit) - Final MRSA NOT DETECTED 05/19/18 22:52 Urine,Clean Catch Urine Culture - Final No Growth (<1,000 CFU/ML) Most Recent Lab Values WBC 8.7 10^3/uL (4.5-11.0) 05/21/18 08:00 RBC 3.76 10^6/uL (3.5-6.1) 05/21/18 08:00 Hgb 12.0 g/dL (12.0-16.0) D 05/21/18 08:00 Hct 36.5 % (36.0-48.0) 05/21/18 08:00 MCV 97.1 fl (80.0-105.0) 05/21/18 08:00 MCH 31.9 pg (25.0-35.0) 05/21/18 08:00 MCHC 32.9 g/dl (31.0-37.0) 05/21/18 08:00 RDW 13.1 % (11.5-14.5) 05/21/18 08:00 Plt Count 226 10^3/uL (120.0-450.0) 05/21/18 08:00 MPV 11.6 fl (7.0-11.0) H 05/21/18 08:00 Neut % (Auto) 58.1 % (50.0-68.0) 05/21/18 08:00 Lymph % (Auto) 29.3 % (22.0-35.0) 05/21/18 08:00 Hardin % (Auto) 11.3 % (1.0-6.0) H 05/21/18 08:00 Eos % (Auto) 1.1 % (1.5-5.0) L 05/21/18 08:00 Baso % (Auto) 0.2 % (0.0-3.0) 05/21/18 08:00 Lymph # (Auto) 2.6 (1.2-3.4) 05/21/18 08:00 Hardin # (Auto) 1.0 (0.1-0.6) H 05/21/18 08:00 Eos # (Auto) 0.1 (0.0-0.7) 05/21/18 08:00 Baso # (Auto) 0.02 K/mm3 (0.0-2.0) 05/21/18 08:00 Absolute Neuts (auto) 5.05 (1.4-6.5) 05/21/18 08:00 PT 12.0 SECONDS (9.4-12.5) 05/19/18 21:03 INR 1.08 05/19/18 21:03 APTT 28.0 Seconds (26.9-38.3) 05/19/18 21:03 pCO2 37 mm/Hg (35-45) 05/21/18 05:15 pO2 138.0 mm/Hg (80-100) H 05/21/18 05:15 HCO3 25.7 mmol/L (21-28) 05/21/18 05:15 ABG pH 7.45 (7.35-7.45) 05/21/18 05:15 ABG Total CO2 26.8 mmol.L (22-28) 05/21/18 05:15 ABG O2 Saturation 99.8 % (95-98) H 05/21/18 05:15 ABG O2 Content 15.4 ML/dl (15-23) 05/21/18 05:15 ABG Base Excess 1.8 mmol/L (-2.0-3.0) 05/21/18 05:15 ABG Hemoglobin 11.1 g/dL (11.7-17.4) L 05/21/18 05:15 ABG Carboxyhemoglobin 1.7 % (0.5-1.5) H 05/21/18 05:15 POC ABG HHb (Measured) 0.2 % (0-5) 05/21/18 05:15 ABG Methemoglobin 1.2 % (0.0-3.0) 05/21/18 05:15 ABG O2 Capacity 15.4 mL/dl (16-24) L 05/21/18 05:15 Hgb O2 Saturation 96.9 % (95.0-98.0) 05/21/18 05:15 FiO2 35.0 % 05/21/18 05:15 Sodium 140 mmol/L (132-148) 05/21/18 08:00 Potassium 3.5 mmol/L (3.6-5.0) L 05/21/18 08:00 Chloride 111 mmol/L (98-107) H 05/21/18 08:00 Carbon Dioxide 24 mmol/L (21-33) 05/21/18 08:00 Anion Gap 8 (10-20) L 05/21/18 08:00 BUN 3 mg/dL (7-21) L 05/21/18 08:00 Creatinine 0.5 mg/dl (0.7-1.2) L 05/21/18 08:00 Est GFR ( Amer) > 60 05/21/18 08:00 Est GFR (Non-Af Amer) > 60 05/21/18 08:00 Random Glucose 98 mg/dL (70-110) 05/21/18 08:00 Calcium 8.6 mg/dL (8.4-10.5) 05/21/18 08:00 Phosphorus 4.0 mg/dL (2.5-4.5) 05/21/18 08:00 Magnesium 2.3 mg/dL (1.7-2.2) H 05/21/18 08:00 Total Bilirubin 0.2 mg/dL (0.2-1.3) 05/21/18 08:00 AST 16 U/L (14-36) 05/21/18 08:00 ALT 27 U/L (7-56) 05/21/18 08:00 Alkaline Phosphatase 84 U/L (38-126) 05/21/18 08:00 Total Creatine Kinase 126 U/L (35-230) 05/19/18 22:29 Total Protein 6.1 g/dL (5.8-8.3) 05/21/18 08:00 Albumin 3.3 g/dL (3.0-4.8) 05/21/18 08:00 Globulin 2.8 gm/dL 05/21/18 08:00 Albumin/Globulin Ratio 1.2 (1.1-1.8) 05/21/18 08:00 Urine Color Yellow (YELLOW) 05/19/18 22:10 Urine Appearance Clear (CLEAR) 05/19/18 22:10 Urine pH 6.0 (4.7-8.0) 05/19/18 22:10 Ur Specific [place] >= 1.030 (1.005-1.035) 05/19/18 22:10 Urine Protein Trace mg/dL (<30 mg/dL) H 05/19/18 22:10 Urine Glucose (UA) Negative mg/dL (NEGATIVE) 05/19/18 22:10 Urine Ketones Negative mg/dL (NEGATIVE) 05/19/18 22:10 Urine Blood Trace-intact (NEGATIVE) H 05/19/18 22:10 Urine Nitrate Negative (NEGATIVE) 05/19/18 22:10 Urine Bilirubin Negative (NEGATIVE) 05/19/18 22:10 Urine Urobilinogen 0.2 E.U./dL (<1 E.U./dL) 05/19/18 22:10 Ur Leukocyte Esterase Negative Maria Alejandra/uL (NEGATIVE) 05/19/18 22:10 Urine RBC 10 - 15 /hpf (0-2) H 05/19/18 22:10 Urine WBC 5 - 10 /hpf (0-6) H 05/19/18 22:10 Ur Epithelial Cells 6 - 8 /hpf (0-5) H 05/19/18 22:10 Urine Opiates Screen Negative (NEGATIVE) 05/19/18 22:29 Urine Methadone Screen Negative (NEGATIVE) 05/19/18 22:29 Ur Barbiturates Screen Positive (NEGATIVE) H 05/19/18 22:29 Lamotrigine 5.7 mcg/mL (4.0-18.0) 05/19/18 21:38 Ur Phencyclidine Scrn Negative (NEGATIVE) 05/19/18 22:29 Ur Amphetamines Screen Negative (NEGATIVE) 05/19/18 22:29 U Benzodiazepines Scrn Positive (NEGATIVE) H 05/19/18 22:29 U Oth Cocaine Metabols Negative (NEGATIVE) 05/19/18 22:29 U Cannabinoids Screen Positive (NEGATIVE) H 05/19/18 22:29 Attending/Attestation - Attestation I have personally seen and examined this patient.: Yes I have fully participated in the care of the patient.: Yes I have reviewed all pertinent clinical information, including history, physical exam and plan: Yes Notes (Text): 05/24/18 15:38 Attending note; Patient seen and examined with resident in ICU in the morning. Currently patient is intubated. On propofol and Versed. Patient has video EEG monitoring by the bedside. No significant seizure like activity noted. Patient is a 38-year-old female with PMHx epilepsy, opiate abuse , marijuana abuse , chronic benzo dependency ,chronic abdominal pain and multiple psychiatric disorder presented to ED s/p unwitnessed seizure uncontrolled with ativan. Pt admitted to ICU for management of status epilepticus requiring intubation. 1. Status epilepticus; currently patient is intubated and sedated. Continue IV Versed. On video EEG monitor. Continue IV Keppra and Depakote. Will follow-up with neurology closely. 2. History of psychiatric disorder; patient is on multiple psych medication. We'll follow up with psychiatrist closely once extubated. 3. History of marijuana abuse. 4. Chronic benzo dependency. 5. Noncompliance with medication follow-up. We will educate the patient about drug abuse cessation and medication compliance once awake. Patient needs close follow-up with neurology and psychiatrist as outpatient. Follow-up with PMD at [facility]. addendum; Patient was extubated and alert and awake. signed AMA. evaluated by resident at the time of AMA. Patient was walking in the hallway. not in distress. left the hospital AMA despite multiple attempt to educate the patient about the risks of signing AMA.
[2018-05-21 18:21] VITALS: PULSE 116; RESP 10; TEMP 99.9
--- NOTE | 2018-05-24 10:50 | PQF ---
PROVIDER RESPONSE TEXT: Patient had mild intermittent asthma REVIEWER QUERY TEXT: Asthma Specificity and Type Asthma is documented in the Medical Record. Please specify the type and severity of asthma and indic ate if this is associated with exacerbation or status asthmaticus. Such as: -- Mild intermittent -- Mild persistent -- Moderate persistent -- Severe persistent -- Exercise induced bronchospasm -- Cough variant asthma -- Other, please specify The patient's Clinical Indicators include: Please see query. Thank you. Query created by: Mia Mckay on 05/23/2018 4:16 PM Electronically signed by: Alva Nguyen MD 05/24/2018 10:47 AM
== END 2018-05-21 15:39 | disposition left against medical advice (07) | DRG 532 ==
LOC: ED 20:45 → ERH 22:03 → CCU 05-20 00:39
PROVIDERS: ADMIT Internal Medicine; ATTEND Internal Medicine
PROC: 5A1945Z Respiratory Ventilation, 24-96 Consecutive Hours (ICD-10-PCS; principal; 2018-05-19)
PROC: 0BH17EZ Insertion of Endotracheal Airway into Trachea, Via Natural or Artificial Opening (ICD-10-PCS; 2018-05-19)
DX: G40.901 Epilepsy, unspecified, not intractable, with status epilepticus (principal); J44.9 Chronic obstructive pulmonary disease, unspecified; F13.20 Sedative, hypnotic or anxiolytic dependence, uncomplicated; G93.40 Encephalopathy, unspecified; K57.92 Diverticulitis of intestine, part unspecified, without perforation or abscess without bleeding; K58.9 Irritable bowel syndrome, unspecified; N80.9 Endometriosis, unspecified; J45.20 Mild intermittent asthma, uncomplicated; Z87.891 Personal history of nicotine dependence; Z90.49 Acquired absence of other specified parts of digestive tract; Z90.710 Acquired absence of both cervix and uterus; Z91.14 Patient's other noncompliance with medication regimen; Z91.19 Patient's noncompliance with other medical treatment and regimen; G43.909 Migraine, unspecified, not intractable, without status migrainosus; D64.9 Anemia, unspecified; L30.9 Dermatitis, unspecified; Z88.5 Allergy status to narcotic agent; Z88.0 Allergy status to penicillin; Z88.2 Allergy status to sulfonamides; Z88.8 Allergy status to other drugs, medicaments and biological substances; Z88.6 Allergy status to analgesic agent; Z91.040 Latex allergy status

== ENCOUNTER 2018-05-23 22:57 | Emergency (ER) | payer OTHER ==
[2018-05-23 23:03] VITALS: BMI 27.4
--- NOTE | 2018-05-23 23:17 | ED PDOC ---
Arrival/HPI - General Time Seen by Provider: 05/23/18 22:59 Historian: Patient - History of Present Illness Narrative History of Present Illness (Text): 05/23/18 23:19 38 year old female, whose past medical history includes epilepsy, seizures, IBS, endometriosis, asthma, diverticulitis, presents to the Emergency department via EMS for two witnessed seizures. Patient arrived responsive and postictal. Patient had fallen on her son's legs during the episodes. Patient was seen and admitted to the hospital two days prior for a similar episode, for which she signed out AMA. Patient is lethargic, limiting HPI and ROS. PMD: Dr. Casey at [facility] Neurologist: Dr. Mroa Time/Duration: Prior to Arrival Symptom Onset: Sudden Symptom Course: Improving, Resolved Activities at Onset: Light Context: Home Past Medical History - Provider Review Nursing Documentation Reviewed: Yes - Past History Past History: No Previous - Infectious Disease Hx of Infectious Diseases: None - Tetanus Immunization Tetanus Immunization: Unknown - Reproductive Currently : No - Cardiac Hx Cardiac Disorders: No - Pulmonary Hx Asthma: Yes Hx Chronic Obstructive Pulmonary Disease (COPD): Yes - Neurological Hx Migraine: Yes Hx Seizures: Yes - HEENT Hx HEENT Disorder: Yes - Renal Hx Renal Disorder: No - Endocrine/Metabolic Hx Endocrine Disorders: No - Hematological/Oncological Hx Anemia: Yes - Integumentary Hx Eczema: Yes - Musculoskeletal/Rheumatological Hx Musculoskeletal Disorders: No Hx Falls: Yes - Gastrointestinal Hx Diverticulitis: Yes Hx Gall Bladder Disease: Yes (CHOLECYSTECTOMY) - Genitourinary/Gynecological Hx Sexually Transmitted Diseases: Yes - Psychiatric Hx Psychophysiologic Disorder: Yes Hx Anxiety: Yes Hx Depression: Yes Hx Emotional Abuse: Yes Hx Substance Use: Yes (CANNABIS. QUIT.) - Surgical History Hx Appendectomy: Yes Hx Cholecystectomy: Yes Hx Hysterectomy: Yes - Anesthesia Hx Anesthesia: Yes Hx Anesthesia Reactions: No Hx Malignant Hyperthermia: No - Suicidal Assessment Feels Threatened In Home Enviroment: No Family/Social History - Physician Review Nursing Documentation Reviewed: Yes Family/Social History: No Known Family HX Smoking Status: Current Some Days Smoker Hx Alcohol Use: No Hx Substance Use: Yes (CANNABIS. QUIT.) Substance used: MARIJUANA Hx Substance Use Treatment: No Allergies/Home Meds Allergies/Adverse Reactions: Allergies ciprofloxacin HCl [From Cipro] Allergy (Mild, Verified 05/23/18 23:03) RASH latex Allergy (Mild, Verified 05/23/18 23:03) RASH Penicillins Allergy (Mild, Verified 05/23/18 23:03) RASH aspirin Allergy (Verified 05/23/18 23:03) RASH aztreonam [From Azactam] Allergy (Verified 05/23/18 23:03) RASH hydromorphone HCl [From Dilaudid] Allergy (Verified 05/23/18 23:03) RASH Sulfa (Sulfonamide Antibiotics) Allergy (Verified 05/23/18 23:03) RASH codeine Adverse Reaction (Verified 05/23/18 23:03) NAUSEA Home Medications: Home Meds Medication Instructions Recorded Confirmed Sertraline HCl [Zoloft] 50 mg PO HS 07/02/15 03/15/18 Cholecalciferol (Vitamin D3) 50,000 units PO .WEEKLY 07/17/15 03/15/18 [Vitamin D3] Mirtazapine [Remeron] 30 mg PO HS 11/12/15 05/24/18 Albuterol Sulfate [Proventil Hfa] 1 puff IH PRN PRN 08/23/16 03/15/18 Butalbital 50 mg PO BID 08/23/16 03/15/18 Conjugated Estrogens [Premarin] 0.625 mg PO DAILY 08/23/16 03/15/18 Montelukast [Singulair] 10 mg PO DAILY 08/23/16 03/15/18 clonazePAM [Klonopin] 1 mg PO TID 08/23/16 03/15/18 Acetaminophen/Butalbital/Caf 1 tab PO TID PRN 06/22/17 03/15/18 [Fioricet] Gabapentin [Neurontin] 200 mg PO TID 06/22/17 05/24/18 Review of Systems - Physician Review All systems were reviewed & negative as marked: Yes - Review of Systems Systems not reviewed;Unavailable: Altered Mental Status Cardiovascular: absent: Chest Pain Gastrointestinal: absent: Abdominal Pain Neurological: Seizure Physical Exam Vital Signs Reviewed: Yes Temperature: Afebrile Blood Pressure: Normal Pulse: Regular Respiratory Rate: Normal Appearance: Positive for: Well-Appearing, Non-Toxic, Comfortable Pain Distress: None Mental Status: Positive for: Lethargic - Systems Exam Head: Present: Atraumatic, Normocephalic Pupils: Present: PERRL Extroacular Muscles: Present: EOMI Conjunctiva: Present: Normal Mouth: Present: Moist Mucous Membranes Neck: Present: Normal Range of Motion Respiratory/Chest: Present: Clear to Auscultation, Good Air Exchange. No: Respiratory Distress, Accessory Muscle Use Cardiovascular: Present: Regular Rate and Rhythm, Normal S1, S2. No: Murmurs Abdomen: No: Tenderness, Distention, Peritoneal Signs Back: Present: Normal Inspection Upper Extremity: Present: Normal Inspection. No: Cyanosis, Edema Lower Extremity: Present: Normal Inspection. No: Edema Neurological: Present: GCS=15, CN II-XII Intact, Speech Normal Skin: Present: Warm, Dry, Normal Color. No: Rashes Psychiatric: Present: Lethargic Medical Decision Making ED Course and Treatment: 05/23/18 23:28 Impression: 38 year old female presents post seizure Plan: -- EKG -- CBC -- CMP, Chemistry -- Reassess and disposition Prior Visits: Notes and results from previous visits were reviewed. Progress Notes:case d/w dr todd and medical residents pt will go to telemetry for seizure - EKG Interpretation EKG Interpretation (Text): nsr rate 88 nssts changes - Scribe Statement The provider has reviewed the documentation as recorded by the Scribe Luis Armando Swanson Provider Scribe Attestation: All medical record entries made by the Scribe were at my direction and personally dictated by me. I have reviewed the chart and agree that the record accurately reflects my personal performance of the history, physical exam, medical decision making, and the department course for this patient. I have also personally directed, reviewed, and agree with the discharge instructions and disposition. Disposition/Present on Arrival - Present on Arrival Any Indicators Present on Arrival: No History of DVT/PE: No History of Uncontrolled Diabetes: No Urinary Catheter: No History Surgical Site Infection Following: None - Disposition Have Diagnosis and Disposition been Completed?: Yes Diagnosis: Seizure Disposition: AGAINST MEDICAL ADVICE Disposition Time: 23:55 Condition: GOOD Referrals: Gurpreet Sherman MD [Primary Care Provider] - Toy Mora MD [Staff Provider] - Forms: [employer] (Armenian)
[2018-05-24 00:06] LABS: BASO # 0.04 K/mm3 (0.0-2.0); BASO % 0.4 % (0.0-3.0); EOS # 0.2 (0.0-0.7); EOS % 2.4 % (1.5-5.0); HEMOGLOBIN 13.4 g/dL (12.0-16.0); LYMPH # 3.3 (1.2-3.4); LYMPH % 37.1 % (22.0-35.0); MEAN CELL VOLUME 95.6 fl (80.0-105.0); MEAN CORPUSCULAR HEMOGLOBIN 32.5 pg (25.0-35.0); MEAN PLATELET VOLUME 11.6 fl (7.0-11.0); MONO # 0.7 (0.1-0.6); RBC 4.12 10^6/uL (3.5-6.1)
[2018-05-24 00:33] VITALS: RESP 18
[2018-05-24 00:57] LABS: BARBITURATES, UR POSITIVE (NEGATIVE); BENZODIAZEPINES, UR POSITIVE (NEGATIVE); OPIATES, UR NEGATIVE (NEGATIVE); PHENCYCLIDINE, UR NEGATIVE (NEGATIVE)
[2018-05-24] MEDS: VALPROATE IVPB SCH ×3 (00:59→14:09)
[2018-05-24] MEDS: SODIUM CHLORIDE 0.9% IVPB SCH ×3 (00:59→14:09)
[2018-05-24 01:00] LABS: ALB/GLOB RATIO 1.2 (1.1-1.8); ALBUMIN 4.1 g/dL (3.0-4.8); ALT/SGPT 30 U/L (7-56); AST/SGOT 36 U/L (14-36); BLOOD UREA NITROGEN 9 mg/dL (7-21); CALCIUM 9.4 mg/dL (8.4-10.5); GFR NON-AFRICAN AMERICAN > 60
[2018-05-24 01:23] LABS: CK-MB 0.9 ng/mL (0.0-3.6)
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
[2018-05-24] MEDS ORDERED: Pantoprazole 40 mg EC Tab PO SCH (06:00)
[2018-05-24 08:17] LABS: ALB/GLOB RATIO 1.2 (1.1-1.8); ALBUMIN 3.3 g/dL (3.0-4.8); ALT/SGPT 29 U/L (7-56); AST/SGOT 23 U/L (14-36); BLOOD UREA NITROGEN 6 mg/dL (7-21); CALCIUM 8.1 mg/dL (8.4-10.5); GFR NON-AFRICAN AMERICAN > 60
--- NOTE | 2018-05-24 08:41 | CT ---
Date of service: 05/24/2018 PROCEDURE: CT HEAD WITHOUT CONTRAST. HISTORY: seizure COMPARISON: Noncontrast head CT 05/20/2018. TECHNIQUE: Axial computed tomography images were obtained through the head/brain without intravenous contrast. Radiation dose: Total exam DLP = 872.96 mGy-cm. This CT exam was performed using one or more of the following dose reduction techniques: Automated exposure control, adjustment of the mA and/or kV according to patient size, and/or use of iterative reconstruction technique. FINDINGS: HEMORRHAGE: No intracranial hemorrhage. BRAIN: Normal perez-white matter differentiation and density are appreciated throughout the cerebrum and cerebellum with the brainstem appearing unremarkable as well. There is no mass effect. There is no suspicious extra-axial fluid collection and the midline brain anatomy appears diffusely unremarkable. VENTRICLES: Unremarkable. No hydrocephalus. CALVARIUM: No destructive bony lesion or displaced fracture identified including through the skullbase. PARANASAL SINUSES: Unremarkable as visualized. No significant inflammatory changes. MASTOID AIR CELLS: Unremarkable as visualized. No inflammatory changes. OTHER FINDINGS: None. IMPRESSION: Unremarkable unenhanced head CT. No signal interval change compared to 05/20/2018 CT.
[2018-05-24] MEDS ORDERED: Divalproex 500 mg DR(BID formulation) PO SCH (10:00)
[2018-05-24 11:28] VITALS: O2SAT 100
--- NOTE | 2018-05-24 12:25 | CARD ---
APPROVED REPORT Date of service: 05/23/2018 EKG Measurement Heart [id number] <Conclusion> Normal sinus rhythm Possible Left atrial enlargement
--- NOTE | 2018-05-24 13:51 | CP.PCM.PCO ---
Addendum Addendum: I met with patient at bedside in the ER. She is alert and well-oriented to month, location, year and circumstances. She defers on any psychiatric management at this time, indicating that she "has no psych issues right now and I already have a psychiatrist I see on the outside". She reports preference to focus on her medical issues. She is not suicidal and denies thoughts to harm others. Her thought process is coherent. Delusions were not elicited. She does not present as an acute danger to herself or others. At this time psychiatry will respect patient's wishes and sign off.Patient aware she may request our f/u at any time if she should change her mind.
[2018-05-24 13:55] VITALS: BP 114/68; PULSE 77; TEMP 98.1
--- NOTE | 2018-05-24 16:22 | CP.PCM.DIS ---
<Alejandro Hough - Last Filed: 05/24/18 16:14> Provider - Provider Date of Admission: 05/24/18 00:26 Attending physician: Steph Eckert DO Primary care physician: Gurpreet Sherman MD Consults: 05/24/18 03:44 Physician Consult Routine Comment: Consulting Provider: Toy Mora Consulting Physician: Toy Mora Reason for Consult: seizures 05/24/18 07:57 Psychiatry Consult Routine Comment: Consulting Provider: Loly Florence Consulting Physician: Loly Florence Reason for Consult: mood d/o, anxiety d/o, seizures, med rec Time Spent in preparation of Discharge (in minutes): 45 Hospital Course - Lab Results Lab Results: Most Recent Lab Values WBC 9.0 10^3/uL (4.5-11.0) 05/23/18 23:34 RBC 4.12 10^6/uL (3.5-6.1) 05/23/18 23:34 Hgb 13.4 g/dL (12.0-16.0) 05/23/18 23:34 Hct 39.4 % (36.0-48.0) 05/23/18 23:34 MCV 95.6 fl (80.0-105.0) 05/23/18 23:34 MCH 32.5 pg (25.0-35.0) 05/23/18 23:34 MCHC 34.0 g/dl (31.0-37.0) 05/23/18 23:34 RDW 13.0 % (11.5-14.5) 05/23/18 23:34 Plt Count 296 10^3/uL (120.0-450.0) 05/23/18 23:34 MPV 11.6 fl (7.0-11.0) H 05/23/18 23:34 Neut % (Auto) 52.1 % (50.0-68.0) 05/23/18 23:34 Lymph % (Auto) 37.1 % (22.0-35.0) H 05/23/18 23:34 [place] % (Auto) 8.0 % (1.0-6.0) H 05/23/18 23:34 Eos % (Auto) 2.4 % (1.5-5.0) 05/23/18 23:34 Baso % (Auto) 0.4 % (0.0-3.0) 05/23/18 23:34 Lymph # (Auto) 3.3 (1.2-3.4) 05/23/18 23:34 [place] # (Auto) 0.7 (0.1-0.6) H 05/23/18 23:34 Eos # (Auto) 0.2 (0.0-0.7) 05/23/18 23:34 Baso # (Auto) 0.04 K/mm3 (0.0-2.0) 05/23/18 23:34 Absolute Neuts (auto) 4.68 (1.4-6.5) 05/23/18 23:34 Sodium 141 mmol/L (132-148) 05/24/18 07:50 Potassium 3.8 mmol/L (3.6-5.0) 05/24/18 07:50 Chloride 116 mmol/L (98-107) H 05/24/18 07:50 Carbon Dioxide 23 mmol/L (21-33) 05/24/18 07:50 Anion Gap 6 (10-20) L 05/24/18 07:50 BUN 6 mg/dL (7-21) L 05/24/18 07:50 Creatinine 0.5 mg/dl (0.7-1.2) L 05/24/18 07:50 Est GFR ( Amer) > 60 05/24/18 07:50 Est GFR (Non-Af Amer) > 60 05/24/18 07:50 Random Glucose 100 mg/dL (70-110) 05/24/18 07:50 Calcium 8.1 mg/dL (8.4-10.5) L 05/24/18 07:50 Phosphorus 3.3 mg/dL (2.5-4.5) 05/24/18 07:50 Magnesium 1.9 mg/dL (1.7-2.2) 05/24/18 07:50 Total Bilirubin 0.3 mg/dL (0.2-1.3) 05/24/18 07:50 AST 23 U/L (14-36) 05/24/18 07:50 ALT 29 U/L (7-56) 05/24/18 07:50 Alkaline Phosphatase 71 U/L (38-126) 05/24/18 07:50 Total Creatine Kinase 203 U/L (35-230) 05/24/18 07:50 CK-MB (CK-2) 0.9 ng/mL (0.0-3.6) 05/23/18 23:34 CK-MB (CK-2) % Cancelled 05/23/18 23:34 Total Protein 6.2 g/dL (5.8-8.3) 05/24/18 07:50 Albumin 3.3 g/dL (3.0-4.8) 05/24/18 07:50 Globulin 2.8 gm/dL 05/24/18 07:50 Albumin/Globulin Ratio 1.2 (1.1-1.8) 05/24/18 07:50 Urine Opiates Screen Negative (NEGATIVE) 05/23/18 23:50 Urine Methadone Screen Negative (NEGATIVE) 05/23/18 23:50 Ur Barbiturates Screen Positive (NEGATIVE) H 05/23/18 23:50 Valproic Acid 33 ug/mL (50.0-100.0) L 05/23/18 23:34 Ur Phencyclidine Scrn Negative (NEGATIVE) 05/23/18 23:50 Ur Amphetamines Screen Negative (NEGATIVE) 05/23/18 23:50 U Benzodiazepines Scrn Positive (NEGATIVE) H 05/23/18 23:50 U Oth Cocaine Metabols Negative (NEGATIVE) 05/23/18 23:50 U Cannabinoids Screen Positive (NEGATIVE) H 05/23/18 23:50 Alcohol, Quantitative < 10 mg/dL (0-10) 05/23/18 23:34 - Hospital Course Hospital Course: Upon Admission: 38 year old female whose PMHx includes epilepsy, IBS, endometriosis, asthma, diverticulitis, presents to the Emergency department via EMS for x2 witnessed seizures. Patient became responsive when she arrived to the ED and was noted to be in a postictal state. Patient was seen and admitted to the hospital two days prior for a similar episode, for which she signed out AMA. In the ED, vital signs showed: Temp 98.2, HR 82, BP 113/59, RR 18, SaO2 98% (room air). Medical team was consulted for evaluation. Patient says she last recalls being in the shower when her seizure episode occurred. She does not recall whether or not she fell in the shower or not. Her fiance and kids were home during the incident. Patient also does not recall how long she was seizing for. Family members were not available at bedside to provide more accurate history. Day of Discharge: ER nursing staff paged resident and attending that patient was requesting to sign out against medical advice. Pt's decision making capacity was assessed thoroughly. Patient was AxO x3 and demonstrated appropriate decision making capacity. Pt was explained, in great detail, about risks of signing out AMA, benefits of treatment in the hospital and alternatives. She was able to describe her current medical problems, listed treatment options offered, including no treatment, named risks and benefits of each alternative, including no treatment, and retained information disclosed during the course of the conversation. She explained risks,benefits and alternatives of treatments vs no treatment. Her ambulation was assessed and patient ambulated without difficulty or gait disturbance. Pt verbalized that she has an appointment with her neurologist, Dr. Mora. She also reports she has followup with her PMD. She reported that she has a safe home environment and will arrange for transportation home Discharge Exam - Head Exam Head Exam: ATRAUMATIC, NORMAL INSPECTION, NORMOCEPHALIC Discharge Plan - Follow Up Plan Condition: GOOD Disposition: AGAINST MEDICAL ADVICE Referrals: Gurpreet Sherman MD [Primary Care Provider] - Toy Mora MD [Staff Provider] - <Steph Eckert R - Last Filed: 05/24/18 17:17> Provider - Provider Primary care physician: Gurpreet Sherman MD Consults: 05/24/18 03:44 Physician Consult Routine Comment: Consulting Provider: Toy Mora Consulting Physician: Toy Mora Reason for Consult: seizures 05/24/18 07:57 Psychiatry Consult Routine Comment: Consulting Provider: Loly Florence Consulting Physician: Loly Florence Reason for Consult: mood d/o, anxiety d/o, seizures, med rec Hospital Course - Lab Results Lab Results: Most Recent Lab Values WBC 9.0 10^3/uL (4.5-11.0) 05/23/18 23:34 RBC 4.12 10^6/uL (3.5-6.1) 05/23/18 23:34 Hgb 13.4 g/dL (12.0-16.0) 05/23/18 23:34 Hct 39.4 % (36.0-48.0) 05/23/18 23:34 MCV 95.6 fl (80.0-105.0) 05/23/18 23:34 MCH 32.5 pg (25.0-35.0) 05/23/18 23:34 MCHC 34.0 g/dl (31.0-37.0) 05/23/18 23:34 RDW 13.0 % (11.5-14.5) 05/23/18 23:34 Plt Count 296 10^3/uL (120.0-450.0) 05/23/18 23:34 MPV 11.6 fl (7.0-11.0) H 05/23/18 23:34 Neut % (Auto) 52.1 % (50.0-68.0) 05/23/18 23:34 Lymph % (Auto) 37.1 % (22.0-35.0) H 05/23/18 23:34 [place] % (Auto) 8.0 % (1.0-6.0) H 05/23/18 23:34 Eos % (Auto) 2.4 % (1.5-5.0) 05/23/18 23:34 Baso % (Auto) 0.4 % (0.0-3.0) 05/23/18 23:34 Lymph # (Auto) 3.3 (1.2-3.4) 05/23/18 23:34 [place] # (Auto) 0.7 (0.1-0.6) H 05/23/18 23:34 Eos # (Auto) 0.2 (0.0-0.7) 05/23/18 23:34 Baso # (Auto) 0.04 K/mm3 (0.0-2.0) 05/23/18 23:34 Absolute Neuts (auto) 4.68 (1.4-6.5) 05/23/18 23:34 Sodium 141 mmol/L (132-148) 05/24/18 07:50 Potassium 3.8 mmol/L (3.6-5.0) 05/24/18 07:50 Chloride 116 mmol/L (98-107) H 05/24/18 07:50 Carbon Dioxide 23 mmol/L (21-33) 05/24/18 07:50 Anion Gap 6 (10-20) L 05/24/18 07:50 BUN 6 mg/dL (7-21) L 05/24/18 07:50 Creatinine 0.5 mg/dl (0.7-1.2) L 05/24/18 07:50 Est GFR ( Amer) > 60 05/24/18 07:50 Est GFR (Non-Af Amer) > 60 05/24/18 07:50 Random Glucose 100 mg/dL (70-110) 05/24/18 07:50 Calcium 8.1 mg/dL (8.4-10.5) L 05/24/18 07:50 Phosphorus 3.3 mg/dL (2.5-4.5) 05/24/18 07:50 Magnesium 1.9 mg/dL (1.7-2.2) 05/24/18 07:50 Total Bilirubin 0.3 mg/dL (0.2-1.3) 05/24/18 07:50 AST 23 U/L (14-36) 05/24/18 07:50 ALT 29 U/L (7-56) 05/24/18 07:50 Alkaline Phosphatase 71 U/L (38-126) 05/24/18 07:50 Total Creatine Kinase 203 U/L (35-230) 05/24/18 07:50 CK-MB (CK-2) 0.9 ng/mL (0.0-3.6) 05/23/18 23:34 CK-MB (CK-2) % Cancelled 05/23/18 23:34 Total Protein 6.2 g/dL (5.8-8.3) 05/24/18 07:50 Albumin 3.3 g/dL (3.0-4.8) 05/24/18 07:50 Globulin 2.8 gm/dL 05/24/18 07:50 Albumin/Globulin Ratio 1.2 (1.1-1.8) 05/24/18 07:50 Urine Opiates Screen Negative (NEGATIVE) 05/23/18 23:50 Urine Methadone Screen Negative (NEGATIVE) 05/23/18 23:50 Ur Barbiturates Screen Positive (NEGATIVE) H 05/23/18 23:50 Valproic Acid 33 ug/mL (50.0-100.0) L 05/23/18 23:34 Ur Phencyclidine Scrn Negative (NEGATIVE) 05/23/18 23:50 Ur Amphetamines Screen Negative (NEGATIVE) 05/23/18 23:50 U Benzodiazepines Scrn Positive (NEGATIVE) H 05/23/18 23:50 U Oth Cocaine Metabols Negative (NEGATIVE) 05/23/18 23:50 U Cannabinoids Screen Positive (NEGATIVE) H 05/23/18 23:50 Alcohol, Quantitative < 10 mg/dL (0-10) 05/23/18 23:34 Attending/Attestation - Attestation I have personally seen and examined this patient.: Yes I have fully participated in the care of the patient.: Yes I have reviewed all pertinent clinical information, including history, physical exam and plan: Yes Notes (Text): Patient seen and examined by me with resident 9:40AM and prior to signing out AMA on 05/24/18. Case discussed with resident. Agree with above with following additions/corrections. Patient is a 38-year-old female with past medical history significant for epilepsy, IBS, endometriosis, asthma, and diverticulitis the presented to the emergency room for 2 witnessed seizures. Please see H&P for full details. Patient was admitted with seizure activity with a history of status epilepticus, hypokalemia, polysubstance abuse. Patient was continued on her home medications of Depakote, gabapentin, and Lamictal. Valproic acid level was subtherapeutic at 33. UDS was positive for barbiturates, benzodiazepines, and cannabinoids. Patient was counseled on drug cessation. Patient was also found to be hypokalemic at 2.7 which resolved with IV potassium. She was afebrile. No leukocytosis. Neurologist was consulted. Head CT per radiologist showed unremarkable unenhanced head CT. Further workup and treatment was pending patient decided to sign out against medical advice. Patient stated that her mo ther told her she would call [facility] if she was not at home taking care of her kids. Patient requested to sign out against medical advice. This action is against my medical advice to the patient and the decision was made with informed refusal. The patient was told that further work up and treatment is necessary and a full explanation of my rationale was given. The risks for leaving were explained to the patient and include but are not limited to increased mortality and morbidity, , and worsening of known or unknown conditions. Patient was AAOx3 and was able to make this informed decision and understood the clinical situation and my explanation of the risks of leaving. The patient voluntarily accepted these risks and signed an AMA form. the patient was given the opportunity to ask questions and reconsider. The patient was encouraged to return to the emergency room at any time for further treatment. Physical exam: General: Awake and alert sitting up in bed in no acute distress HEENT: Normocephalic, atraumatic. Extraocular muscles intact, pupils equal and reactive, no scleral icterus. Oropharynx is pink and moist. No pharyngeal erythema or exudate appreciated. Neck is supple. Positive papable nodule right neck Cardiovascular: Regular rhythm. Normal S1 and S2. No murmurs, rubs, or gallops appreciated Pulmonary: Normal respiratory effort. No rhonchi, rales, or wheezing apprecia binta. Gastrointestinal: Soft, nondistended. Nontender. Positive bowel sounds all 4 quadrants. No guarding. Musculoskeletal: Moves all extremities. No calf tenderness. No edema appreciated. Central nervous system: AAOx3, CN 2-12 grossly intact. 5/5 muscle strength all extremities. Dermatologic: Skin warm and dry. Please see chart for full details.
== END 2018-05-24 15:25 | disposition left against medical advice (07) ==
LOC: ED 22:57 → ERH 05-24 00:26 → UNDOADMIN 05-24 00:26 → ED 05-24 15:25
DX: R56.9 Unspecified convulsions (principal)
CPT/HCPCS: 70450; 80053; 80164; 80320; 80324; 80345; 80346; 80349; 80353; 80358; 80361; 81025; 82550; 82553; 82948; 83735; 83992; 84100; 85025; 93005; 96361; 96365; 96372; 96375; 96376; 99285; J1644; J2060; J3480